=== PATIENT | female | born 1930 | race Caucasian/White ===

== ENCOUNTER → 2016-04-14 | Outpatient (REF) | payer MEDICARE ==
[~2016-04-14] MED LIST: AMLO10TA2 PO; BENA40TA2 PO; BIOT5000 PO; CALCIUM W/ VIT D PO; CITA40TA4 PO; DOCU10CA PO; ENTO3CAP5 PO; LIPI80TA PO; LOTR10CA2 PO; MELA1CAP2 PO; METF-414 PO; MIRT30TA3 PO; MOME50SP; MOTR200T44 PO; MULT1TAB9 PO; OMEP40CA2 PO; OXYB5TAB PO; PANT40TA2 PO; PERC5TAB6 PO; VITA20008 PO; VITATAB73 PO; ZOFR4TAB3 PO; [UNRECOGNIZED DRUG - OTHER] PR
== END ==
LOC: M LAB REF 10:57
PROVIDERS: ATTEND Physician Assistant Medical
DX: R19.7 Diarrhea, unspecified (principal)

== ENCOUNTER → 2016-05-27 | Outpatient (REF) | payer MEDICARE ==
[2016-05-27 15:59] LABS: MEAN CORPUSCULAR HEMOGLOBIN 26.4 pg (27.0-33.0); MEAN CORPUSCULAR HGB CONC 31.4 g/dl (32.0-36.5); MEAN CORPUSCULAR VOLUME 84.1 fl (80.0-96.0); RED CELL DISTRIBUTION WIDTH 14.8 % (11.5-14.5); WHITE BLOOD COUNT 7.9 K/mm3 (4.0-10.0)
[2016-05-27 16:16] LABS: ALBUMIN 3.4 GM/DL (3.2-5.2); ALBUMIN/GLOBULIN RATIO 1.17 (1.00-1.93); BILIRUBIN,TOTAL 0.5 MG/DL (0.2-1.0); CALCIUM LEVEL 8.4 MG/DL (8.8-10.2); CREATININE FOR GFR 1.11 MG/DL (0.55-1.02); FOLATE 20.8 NG/ML; GLOMERULAR FILTRATION RATE 49.9 (>32); POTASSIUM SERUM 4.7 MEQ/L (3.5-5.1); TOTAL PROTEIN 6.3 GM/DL (6.4-8.2)
== END ==
LOC: M SFHCPLAZ 11:40
PROVIDERS: ATTEND Internal Medicine
DX: R53.82 Chronic fatigue, unspecified (principal); E11.9 Type 2 diabetes mellitus without complications; E78.00 Pure hypercholesterolemia, unspecified

== ENCOUNTER → 2016-12-06 | Outpatient (REF) | payer MEDICARE ==
[~2016-12-06] MED LIST changes: -BENA40TA2 PO; +BENA40TA7 PO; +PERC5TAB12 PO; -PERC5TAB6 PO
[2016-12-06 21:44] LABS: ALBUMIN 3.4 GM/DL (3.2-5.2); ALBUMIN/GLOBULIN RATIO 1.13 (1.00-1.93); BILIRUBIN,TOTAL 0.5 MG/DL (0.2-1.0); CALCIUM LEVEL 7.8 MG/DL (8.8-10.2); CREATININE FOR GFR 1.1 MG/DL (0.55-1.02); GLOMERULAR FILTRATION RATE 50.3 (>32); MAGNESIUM LEVEL 1.5 MG/DL (1.8-2.4); POTASSIUM SERUM 4.5 MEQ/L (3.5-5.1); TOTAL PROTEIN 6.4 GM/DL (6.4-8.2)
== END ==
LOC: M SFHCADAM 12:56
PROVIDERS: ATTEND Internal Medicine
DX: E78.00 Pure hypercholesterolemia, unspecified (principal); E11.9 Type 2 diabetes mellitus without complications; N18.3 Chronic kidney disease, stage 3 (moderate)

== ENCOUNTER → 2017-06-01 | Outpatient (REF) | payer MEDICARE ==
[2017-06-01 19:45] LABS: HEMATOCRIT 39.4 % (36.0-47.0); HEMOGLOBIN 11.9 g/dl (12.0-16.0); MEAN CORPUSCULAR HGB CONC 30.2 g/dl (32.0-36.5); MEAN CORPUSCULAR VOLUME 82.8 fl (80.0-96.0); PLATELET COUNT, AUTOMATED 272 10^3/uL (150-450); RED BLOOD COUNT 4.76 10^6/uL (4.00-5.40); RED CELL DISTRIBUTION WIDTH 17.1 % (11.5-14.5); WHITE BLOOD COUNT 6.6 10^3/uL (4.0-10.0)
[2017-06-01 20:03] LABS: ESTIMATED AVERAGE GLUCOSE 163 MG/DL (60-110); HEMOGLOBIN A1c 7.3 %
[2017-06-01 20:08] LABS: VITAMIN B12 LEVEL 484 PG/ML
[2017-06-01 20:09] LABS: ALBUMIN 3.4 GM/DL (3.2-5.2); ALKALINE PHOSPHATASE 142 U/L (45-117); ALT/SGPT 27 U/L (12-78); ANION GAP 8 MEQ/L (8-16); AST/SGOT 23 U/L (7-37); BILIRUBIN,TOTAL 0.5 MG/DL (0.2-1.0); BLOOD UREA NITROGEN 11 MG/DL (7-18); CALCIUM LEVEL 8.4 MG/DL (8.8-10.2); CARBON DIOXIDE LEVEL 27 MEQ/L (21-32); CHLORIDE LEVEL 109 MEQ/L (98-107); CHOLESTEROL LEVEL 156 MG/DL (<200); CHOLESTEROL RISK RATIO 4.457 (<5); CREATININE FOR GFR 0.94 MG/DL (0.55-1.30); FOLATE > 24.0 NG/ML; GLOMERULAR FILTRATION RATE > 60.0 (>32); GLUCOSE, FASTING 123 MG/DL (70-100); HDL CHOLESTEROL 35 MG/DL (>40); LDL CHOLESTEROL 61.4 MG/DL (<100); NON-HDL-C 121 MG/DL; POTASSIUM SERUM 4.3 MEQ/L (3.5-5.1); SODIUM LEVEL 144 MEQ/L (136-145); TOTAL PROTEIN 6.5 GM/DL (6.4-8.2); TRIGLYCERIDES LEVEL 298 MG/DL (<150)
== END ==
LOC: M SFHCPLAZ 11:53
DX: R53.82 Chronic fatigue, unspecified (principal); E11.9 Type 2 diabetes mellitus without complications; E78.00 Pure hypercholesterolemia, unspecified
CPT/HCPCS: 82746

== ENCOUNTER → 2017-10-10 | Outpatient (CLI) | payer MEDICARE | LOC: M RAD 13:37 | DX: N64.4 Mastodynia (principal) | CPT/HCPCS: 77065 ==

== ENCOUNTER → 2017-12-02 | Outpatient (REF) | payer MEDICARE ==
[2017-12-02 16:10] LABS: ALBUMIN 3.3 GM/DL (3.2-5.2); ALBUMIN/GLOBULIN RATIO 0.94 (1.00-1.93); ALKALINE PHOSPHATASE 134 U/L (45-117); ALT/SGPT 29 U/L (12-78); ANION GAP 7 MEQ/L (8-16); AST/SGOT 28 U/L (7-37); BILIRUBIN,TOTAL 0.5 MG/DL (0.2-1.0); BLOOD UREA NITROGEN 11 MG/DL (7-18); CALCIUM LEVEL 8.6 MG/DL (8.8-10.2); CARBON DIOXIDE LEVEL 29 MEQ/L (21-32); CHLORIDE LEVEL 108 MEQ/L (98-107); CHOLESTEROL LEVEL 157 MG/DL (<200); CHOLESTEROL RISK RATIO 4.025 (<5); CREATININE FOR GFR 1.14 MG/DL (0.55-1.30); GLOMERULAR FILTRATION RATE 48.1 (>32); GLUCOSE, FASTING 115 MG/DL (70-100); HDL CHOLESTEROL 39 MG/DL (>40); LDL CHOLESTEROL 75 MG/DL (<100); MAGNESIUM LEVEL 1.5 MG/DL (1.8-2.4); NON-HDL-C 118 MG/DL; POTASSIUM SERUM 4.4 MEQ/L (3.5-5.1); SODIUM LEVEL 144 MEQ/L (136-145); TOTAL PROTEIN 6.8 GM/DL (6.4-8.2); TRIGLYCERIDES LEVEL 217 MG/DL (<150)
[2017-12-02 16:13] LABS: ESTIMATED AVERAGE GLUCOSE 163 MG/DL (60-110); HEMOGLOBIN A1c 7.3 %
== END ==
LOC: M SFHCADAM 11:26
DX: E11.9 Type 2 diabetes mellitus without complications (principal); E78.00 Pure hypercholesterolemia, unspecified
CPT/HCPCS: 83735

== ENCOUNTER → 2017-12-05 | Outpatient (REF) | payer MEDICARE ==
[2017-12-05 20:02] LABS: CREATININE, URINE 70.1 MG/DL; MALB URINE SIEMENS 20.8 MG/L
[2017-12-05 20:11] LABS: MAU/CREAT RATIO 29.7 MCG/MG (0.0-30.0)
== END ==
LOC: M SFHCADAM 18:53
DX: E11.9 Type 2 diabetes mellitus without complications (principal)
CPT/HCPCS: 82043

== ENCOUNTER 2017-12-08 19:28 | Emergency (ER) | payer MEDICARE ==
[2017-12-08 20:16] LABS: BASO % 0.5 % (0.0-1.0); EOS # 0.1 10^3/uL (0.0-0.50); EOS % 1.6 % (0.0-3.0); HEMATOCRIT 38.8 % (36.0-47.0); IMMATURE GRANULOCYTE % 0.6 % (0-3.0); LYMPH # 1.7 10^3/uL (1.5-4.5); LYMPH % 21.8 % (24.0-44.0); MEAN CORPUSCULAR HEMOGLOBIN 25.6 pg (27.0-33.0); MEAN CORPUSCULAR HGB CONC 30.9 g/dl (32.0-36.5); MEAN CORPUSCULAR VOLUME 82.7 fl (80.0-96.0); MONO # 0.8 10^3/uL (0.0-0.8); MONO % 9.4 % (0.0-5.0); NEUTROPHILS # 5.3 10^3/uL (1.8-7.7); NEUTROPHILS % 66.1 % (36.0-66.0); PLATELET COUNT, AUTOMATED 251 10^3/uL (150-450); RED BLOOD COUNT 4.69 10^6/uL (4.00-5.40); RED CELL DISTRIBUTION WIDTH 16.3 % (11.5-14.5)
[2017-12-08 20:29] LABS: INR 1.07
[2017-12-08 20:30] LABS: PARTIAL THROMBOPLASTIN TIME 32.7 SECONDS (25.4-37.6)
[2017-12-08 21:12] LABS: ALBUMIN 3.3 GM/DL (3.2-5.2); ALBUMIN/GLOBULIN RATIO 0.94 (1.00-1.93); ALKALINE PHOSPHATASE 121 U/L (45-117); ALT/SGPT 27 U/L (12-78); ANION GAP 10 MEQ/L (8-16); AST/SGOT 28 U/L (7-37); BILIRUBIN,DIRECT 0.1 MG/DL (0.0-0.2); BILIRUBIN,TOTAL 0.4 MG/DL (0.2-1.0); BLOOD UREA NITROGEN 10 MG/DL (7-18); C REACTIVE PROTEIN QUANTITATIV < 0.30 MG/DL (0.00-0.30); CALCIUM LEVEL 8.6 MG/DL (8.8-10.2); CARBON DIOXIDE LEVEL 21 MEQ/L (21-32); CHLORIDE LEVEL 109 MEQ/L (98-107); CK-MB VALUE MASS < 1.0 NG/ML (<3.6); CPK CREATINE PHOSPHOKINASE 35 U/L (26-192); CREATININE FOR GFR 1.13 MG/DL (0.55-1.30); ERYTHROCYTE SEDIMENTATION RATE 23 mm/hr (0-42); GLOMERULAR FILTRATION RATE 48.6 (>32); GLUCOSE, FASTING 128 MG/DL (70-100); MB/CK RELATIVE INDEX 2.86 (< OR =4); NT-PRO BNP 187 PG/ML (<450); SODIUM LEVEL 140 MEQ/L (136-145); THYROID STIMULATING HORMONE 0.865 uIU/ML (0.358-3.740); TOTAL PROTEIN 6.8 GM/DL (6.4-8.2); TROPONIN I < 0.02 NG/ML (< 0.10)
[2017-12-08] MEDS ORDERED: ISOVUE-370 76% 100ML VIAL (Q9967) As Ordered (22:29)
[2017-12-08] MEDS: NS 500 ML IV (22:30)
== END 2017-12-09 00:10 | disposition home or self-care (01) ==
LOC: M ED 12-09 00:10
DX: R07.89 Other chest pain (principal); I12.9 Hypertensive chronic kidney disease with stage 1 through stage 4 chronic kidney disease, or unspecified chronic kidney disease; E11.9 Type 2 diabetes mellitus without complications; N18.3 Chronic kidney disease, stage 3 (moderate); I25.10 Atherosclerotic heart disease of native coronary artery without angina pectoris; E78.5 Hyperlipidemia, unspecified; F41.9 Anxiety disorder, unspecified; F33.9 Major depressive disorder, recurrent, unspecified; G47.33 Obstructive sleep apnea (adult) (pediatric); Z88.0 Allergy status to penicillin; Z88.2 Allergy status to sulfonamides; Z87.891 Personal history of nicotine dependence
CPT/HCPCS: Q9967

== ENCOUNTER → 2017-12-28 | Outpatient (REF) | payer MEDICARE | LOC: M LAB REF 10:14 | DX: N39.0 Urinary tract infection, site not specified (principal) | CPT/HCPCS: 87186 ==

== ENCOUNTER → 2018-06-05 | Outpatient (REF) | payer MEDICARE ==
[~2018-06-05] MED LIST changes: -AMLO10TA2 PO; +AMLO10TA5 PO; +ASPI1TAB PO; -PANT40TA2 PO; +PANT40TA3 PO; +ZOFR4TAB14 PO; -ZOFR4TAB3 PO
[2018-06-05 19:56] LABS: HEMATOCRIT 40.8 % (36.0-47.0); HEMOGLOBIN 11.9 g/dl (12.0-15.5); MEAN CORPUSCULAR HEMOGLOBIN 24.8 pg (27.0-33.0); MEAN CORPUSCULAR HGB CONC 29.2 g/dl (32.0-36.5); MEAN CORPUSCULAR VOLUME 85.2 fl (80.0-96.0); PLATELET COUNT, AUTOMATED 288 10^3/uL (150-450); RED BLOOD COUNT 4.79 10^6/uL (4.00-5.40); WHITE BLOOD COUNT 7.1 10^3/uL (4.0-10.0)
[2018-06-05 20:05] LABS: ALBUMIN 3.3 GM/DL (3.2-5.2); BILIRUBIN,TOTAL 0.4 MG/DL (0.2-1.0); CALCIUM LEVEL 8.3 MG/DL (8.8-10.2); CHOLESTEROL RISK RATIO 4.562 (<5); CREATININE FOR GFR 1.07 MG/DL (0.55-1.30); GLOMERULAR FILTRATION RATE 51.8 (>32); MAGNESIUM LEVEL 1.7 MG/DL (1.8-2.4); POTASSIUM SERUM 4.2 MEQ/L (3.5-5.1); TOTAL PROTEIN 6.4 GM/DL (6.4-8.2)
[2018-06-05 20:13] LABS: PTH INTACT 99.6 PG/ML (18.5-88.0)
[2018-06-05 20:53] LABS: HEMOGLOBIN A1c 7.5 %
== END ==
LOC: M SFHCADAM 11:50
PROVIDERS: ATTEND Internal Medicine
DX: R71.8 Other abnormality of red blood cells (principal); I12.9 Hypertensive chronic kidney disease with stage 1 through stage 4 chronic kidney disease, or unspecified chronic kidney disease; E11.9 Type 2 diabetes mellitus without complications; E78.00 Pure hypercholesterolemia, unspecified; N18.3 Chronic kidney disease, stage 3 (moderate)

== ENCOUNTER 2018-07-19 17:11 | Emergency (ER) | payer MEDICARE ==
[~2018-07-19] VITALS: Ht 162.6 cm; Wt 81.8 kg
[~2018-07-19 17:11] MED LIST changes: -ASPI1TAB PO; +ASPI81TA26 PO
[2018-07-19] MEDS ORDERED: MELA10CA PO (17:29)
[2018-07-19] MEDS ORDERED: ACET-683 PO (17:29)
[2018-07-19] MEDS ORDERED: LEXA1TAB2 PO (17:29)
[2018-07-19] MEDS ORDERED: OMEG12003 PO (17:29)
[2018-07-19] MEDS ORDERED: VASC1CAP2 PO (17:29)
[2018-07-19 17:54] LABS: BASO % 0.6 % (0.0-1.0); EOS # 0.2 10^3/uL (0.0-0.50); EOS % 3.2 % (0.0-3.0); HEMATOCRIT 35.4 % (36.0-47.0); HEMOGLOBIN 10.8 g/dl (12.0-15.5); LYMPH # 1.6 10^3/uL (1.5-4.5); LYMPH % 22.6 % (24.0-44.0); MEAN CORPUSCULAR HEMOGLOBIN 25.5 pg (27.0-33.0); MEAN CORPUSCULAR HGB CONC 30.5 g/dl (32.0-36.5); MEAN CORPUSCULAR VOLUME 83.7 fl (80.0-96.0); MONO # 0.6 10^3/uL (0.0-0.8); MONO % 8.9 % (0.0-5.0); NEUTROPHILS # 4.5 10^3/uL (1.8-7.7); NEUTROPHILS % 64.3 % (36.0-66.0); PLATELET COUNT, AUTOMATED 292 10^3/uL (150-450); RED BLOOD COUNT 4.23 10^6/uL (4.00-5.40)
[2018-07-19 18:10] LABS: INR 1.13; PROTHROMBIN TIME 14.7 SECONDS (12.1-14.4)
[2018-07-19 18:11] LABS: PARTIAL THROMBOPLASTIN TIME 33.3 SECONDS (25.4-37.6)
--- NOTE | 2018-07-19 18:12 | REP ---
HISTORY: Chest pain. COMPARISON: Multiple, the latest 12/08/2017, a portable exam. There is cardiomegaly. There is a diffuse increase in the interstitial markings consistent with fibrotic changes, status quo. No acute patchy parenchymal opacities or pleural effusions have developed. The pleural angles are sharp. There is no change in the osseous structures. IMPRESSION: Chronic fibrotic changes and cardiomegaly as described above. Correlate clinically to rule out the possibility of acute disease superimposed on chronic change. Electronically Signed by Jake Suresh DO 07/20/2018 01:22 P
[2018-07-19 18:23] LABS: ALBUMIN 3.4 GM/DL (3.2-5.2); ALT/SGPT 21 U/L (12-78); BILIRUBIN,DIRECT 0.1 MG/DL (0.0-0.2); BILIRUBIN,TOTAL 0.4 MG/DL (0.2-1.0); BLOOD UREA NITROGEN 14 MG/DL (7-18); CALCIUM LEVEL 8.1 MG/DL (8.8-10.2); CARBON DIOXIDE LEVEL 23 MEQ/L (21-32); CHLORIDE LEVEL 112 MEQ/L (98-107); CK-MB VALUE MASS < 1.0 NG/ML (<3.6); CPK CREATINE PHOSPHOKINASE 37 U/L (26-192); FREE T4 1.12 NG/DL (0.76-1.46); GLOMERULAR FILTRATION RATE 45.3 (>32); GLUCOSE, FASTING 97 MG/DL (70-100); LIPASE 93 U/L (73-393); POTASSIUM SERUM 4.5 MEQ/L (3.5-5.1); SODIUM LEVEL 142 MEQ/L (136-145); THYROID STIMULATING HORMONE 0.746 uIU/ML (0.358-3.740); TOTAL PROTEIN 6.1 GM/DL (6.4-8.2); TROPONIN I < 0.02 NG/ML (< 0.10)
[2018-07-19] MEDS ORDERED: ISOVUE-370 76% 100ML VIAL (Q9967) As Ordered ONE (18:54)
--- NOTE | 2018-07-19 20:39 | ECGEPIP ---
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
--- NOTE | 2018-07-19 21:10 | REPVR ---
EXAM: CT Angiography Chest With Contrast EXAM DATE/TIME: 07/19/2018 7:59 PM CLINICAL HISTORY: 87 years old, female; Chest pain; Type not specified TECHNIQUE: Imaging protocol: Axial computed tomographic angiography images of the chest with intravenous contrast using CT angiography protocol. Coronal and sagittal reformatted images were created and reviewed. 3D rendering: MIP and 3D reconstructed images were created and reviewed. Radiation optimization: All CT scans at this facility use at least one of these dose optimization techniques: automated exposure control; mA and/or kV adjustment per patient size (includes targeted exams where dose is matched to clinical indication); or iterative reconstruction. Contrast material: ISOVUE 370; Contrast volume: 75 ml; Contrast route: IV; COMPARISON: CT ANGIO CHEST 12/08/2017 10:43 PM FINDINGS: Pulmonary arteries: There is opacification of the pulmonary arteries with no evidence of pulmonary embolus. Aorta: The aorta appears normal in size. There is calcification along the margin of the aorta consistent with atherosclerotic change. Thyroid: There is a 2 CM nodule in right lobe of the thyroid and unchanged. Lungs: There is hazy and patchy interstitial density throughout all aspects of the lungs and this is very extensive and progressive since the previous exam. Considerations include chronic interstitial lung disease which would include sarcoidosis, histiocytosis, collagen vascular disease, idiopathic pulmonary fibrosis. Some of this is present on the examination of November 2017 but there has been progression. Superimposed acute interstitial lung disease possible. It is noted that there are enlarged hilar lymph nodes especially on the right and this can be seen with sarcoidosis. Pleural space: There is no evidence of pneumothorax. There is no evidence of pleural effusion. Heart: There is moderate cardiomegaly. Stomach and bowel: There is a large hiatal hernia no after the stomach above the diaphragm. Bones/joints: Unremarkable. No acute fracture. Soft tissues: Unremarkable. IMPRESSION: 1. No evidence of pulmonary embolus. 2. Large areas of hazy patchy interstitial density throughout all the lung and progression since November 2017. This could represent progressive chronic interstitial lung disease as discussed above. There has been some increase in size of the enlarged hilar lymph nodes on the right which can be seen with sarcoidosis. Interstitial infection not absolutely excluded. Electronically signed by: Moris Faulkner On 07/19/2018 21:09:41 PM
[2018-07-19 21:55] LABS: CK-MB VALUE MASS < 1.0 NG/ML (<3.6); CPK CREATINE PHOSPHOKINASE 41 U/L (26-192); MB/CK RELATIVE INDEX 2.44 (< OR =4); TROPONIN I < 0.02 NG/ML (< 0.10)
[2018-07-19 22:20] VITALS: O2SAT 87
[2018-07-19 23:32] VITALS: BP 149/72
--- NOTE | 2018-07-21 06:58 | ECGEPIP ---
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
== END 2018-07-19 23:39 | disposition home or self-care (01) ==
LOC: M ED 17:11 → EDBD 17:11 → M ED 23:39
DX: I48.91 Unspecified atrial fibrillation (principal); J84.10 Pulmonary fibrosis, unspecified; E11.9 Type 2 diabetes mellitus without complications; I10 Essential (primary) hypertension; E78.5 Hyperlipidemia, unspecified; Z88.0 Allergy status to penicillin; Z88.1 Allergy status to other antibiotic agents; Z88.2 Allergy status to sulfonamides; E73.9 Lactose intolerance, unspecified; Z79.899 Other long term (current) drug therapy; Z79.84 Long term (current) use of oral hypoglycemic drugs; Z79.82 Long term (current) use of aspirin
CPT/HCPCS: 36415; 71046; 71275; 80048; 80076; 82550; 82553; 83690; 84439; 84443; 84484; 85025; 85610; 85730; 93005; 93041; 94760; 99285; Q9967

== ENCOUNTER → 2018-08-23 | Outpatient (REF) | payer MEDICARE ==
[~2018-08-23] MED LIST changes: +ACET-683 PO; +LEXA1TAB2 PO; +MELA10CA PO; +OMEG12003 PO; +VASC1CAP2 PO
== END ==
LOC: M LAB REF 17:04
PROVIDERS: ATTEND Nurse Practitioner Family
DX: R91.8 Other nonspecific abnormal finding of lung field (principal)

== ENCOUNTER → 2018-12-12 | Outpatient (REF) | payer MEDICARE ==
[~2018-12-12] MED LIST changes: -OXYB5TAB PO; +OXYB5TAB2 PO
[2018-12-12 19:53] LABS: ALBUMIN 3.5 GM/DL (3.2-5.2); BILIRUBIN,TOTAL 0.5 MG/DL (0.2-1.0); CALCIUM LEVEL 8.5 MG/DL (8.8-10.2); CHOLESTEROL RISK RATIO 4.485 (<5); CREATININE FOR GFR 1.24 MG/DL (0.55-1.30); GLOMERULAR FILTRATION RATE 43.6 (>32); MAGNESIUM LEVEL 1.6 MG/DL (1.8-2.4); PTH INTACT 120.8 PG/ML (18.5-88.0); THYROID STIMULATING HORMONE 2.24 uIU/ML (0.358-3.740); TOTAL PROTEIN 6.4 GM/DL (6.4-8.2)
== END ==
LOC: M SFHCADAM 12:53
PROVIDERS: ATTEND Internal Medicine
DX: I12.9 Hypertensive chronic kidney disease with stage 1 through stage 4 chronic kidney disease, or unspecified chronic kidney disease (principal); E11.9 Type 2 diabetes mellitus without complications; E78.00 Pure hypercholesterolemia, unspecified; N18.3 Chronic kidney disease, stage 3 (moderate); F34.1 Dysthymic disorder

== ENCOUNTER 2020-07-02 16:58 | Emergency (ER) | payer MEDICARE ==
[~2020-07-02] VITALS: Ht 162.6 cm; Wt 76.8 kg
[~2020-07-02 16:58] MED LIST changes: -CEFD300C PO; -DOXY-342 PO; -ELIQ5TAB PO; -METO25TA4 PO
[2020-07-02] MEDS ORDERED: ELIQ5TAB PO (17:31)
[2020-07-02] MEDS ORDERED: METOPROLOL TART 25 MG TABLET PO ONE (18:25)
[2020-07-02 18:36] VITALS: BP 120/83
[2020-07-02 18:49] LABS: NT-PRO BNP 5787 PG/ML (<450)
[2020-07-02] MEDS ORDERED: POTASSIUM CHLORIDE 10 MEQ SR TABLET PO ONE (19:15)
[2020-07-02 19:21] LABS: CK-MB VALUE MASS < 1.0 NG/ML (<3.6); CPK CREATINE PHOSPHOKINASE 29 U/L (26-192); MB/CK RELATIVE INDEX 3.45 (< OR =4); TROPONIN I < 0.02 NG/ML (< 0.10)
[2020-07-02 19:26] LABS: RSV AMPLIFICATION NEGATIVE (NEGATIVE)
[2020-07-02] MEDS ORDERED: cefTRIAXone SOD 1 GM in D5W MINI-BAG PLUS 50 ML IV ONE (20:25)
[2020-07-02] MEDS ORDERED: METO25TA4 PO (20:27)
[2020-07-02] MEDS ORDERED: CEFD300C PO (20:28)
[2020-07-02] MEDS ORDERED: DOXY-342 PO (20:28)
[2020-07-02 20:40] VITALS: O2SAT 96
[2020-07-02 22:00] VITALS: BP 127/74
--- NOTE | 2020-07-03 13:01 | ECGEPIP ---
[facility] - ED Test Date: 2020-07-02 Pat Name: TOSHA SCOTT Department: Room: - Gender: Female Manager Forensic: MARIA L : 1930 Requested By: Danna Montemayor Order Number: [id number] Reading MD: Danna Montemayor Measurements Intervals [place] Rate: 125 P: RI: QRS: 29 QRSD: 82 T: 145 QT: 326 QTc: 470 Interpretive Statements Atrial flutter with variable AV block Nonspecific ST and T wave abnormality Electronically Signed on 07-03-2020 13:01:22 EDT by Danna Montemayor
== END 2020-07-02 22:01 | disposition home or self-care (01) ==
LOC: M ED 16:58
DX: I48.91 Unspecified atrial fibrillation (principal); J18.9 Pneumonia, unspecified organism; E87.6 Hypokalemia; I48.92 Unspecified atrial flutter; I44.30 Unspecified atrioventricular block; R06.02 Shortness of breath; I25.10 Atherosclerotic heart disease of native coronary artery without angina pectoris; E11.9 Type 2 diabetes mellitus without complications; I10 Essential (primary) hypertension; E78.5 Hyperlipidemia, unspecified; K21.9 Gastro-esophageal reflux disease without esophagitis; N18.9 Chronic kidney disease, unspecified; E73.9 Lactose intolerance, unspecified; G47.33 Obstructive sleep apnea (adult) (pediatric); I35.0 Nonrheumatic aortic (valve) stenosis; Z87.891 Personal history of nicotine dependence; Z79.82 Long term (current) use of aspirin; Z79.84 Long term (current) use of oral hypoglycemic drugs; Z79.899 Other long term (current) drug therapy; Z88.0 Allergy status to penicillin; Z88.2 Allergy status to sulfonamides
CPT/HCPCS: 36415; 71046; 80053; 82550; 82553; 82728; 83036; 83540; 83880; 84443; 84484; 85025; 87631; 93005; 93041; 94760; 96365; 99285; G0463; J0696

== ENCOUNTER → 2020-07-02 | Outpatient (REF) | payer MEDICARE ==
[~2020-07-02] MED LIST changes: -AMLO10TA5 PO; +AMLO1TAB25 PO; +BENA40TA5 PO; -BENA40TA7 PO; +CEFD300C PO; +DOXY-342 PO; +ELIQ5TAB PO; +METO25TA4 PO; -OMEP40CA2 PO; +OMEP40CA97 PO; +OXYB-54 PO; -OXYB5TAB2 PO; +PANT40TA29 PO; -PANT40TA3 PO
[2020-07-02 17:44] LABS: BASO # 0.1 10^3/uL (0.0-0.2); BASO % 0.5 % (0.0-1.0); EOS # 0.2 10^3/uL (0.0-0.5); EOS % 1.7 % (0.0-3.0); HEMATOCRIT 29.7 % (36.0-47.0); HEMOGLOBIN 8.9 g/dl (12.0-15.5); LYMPH # 1.3 10^3/uL (1.5-5.0); LYMPH % 13.4 % (24.0-44.0); MEAN CORPUSCULAR HEMOGLOBIN 23.6 pg (27.0-33.0); MEAN CORPUSCULAR VOLUME 78.8 fl (80.0-96.0); MONO # 0.7 10^3/uL (0.0-0.8); MONO % 7.7 % (2.0-8.0); NEUTROPHILS # 7.3 10^3/uL (1.5-8.5); NEUTROPHILS % 75.9 % (36.0-66.0); PLATELET COUNT, AUTOMATED 318 10^3/uL (150-450); RED BLOOD COUNT 3.77 10^6/uL (4.00-5.40); WHITE BLOOD COUNT 9.6 10^3/uL (4.0-10.0)
[2020-07-02 18:15] LABS: BILIRUBIN,TOTAL 0.9 MG/DL (0.2-1.0); CALCIUM LEVEL 8.4 MG/DL (8.8-10.2); CREATININE FOR GFR 1.03 MG/DL (0.55-1.30); GLOMERULAR FILTRATION RATE 53.8 (>32); POTASSIUM SERUM 3.2 MEQ/L (3.5-5.1); THYROID STIMULATING HORMONE 0.732 uIU/ML (0.358-3.740); TOTAL PROTEIN 5.9 GM/DL (6.4-8.2)
== END ==
LOC: M SFHCPLAZ 15:51
PROVIDERS: ATTEND Physician Assistant
DX: R06.02 Shortness of breath (principal); R53.83 Other fatigue; R05 Cough; E11.9 Type 2 diabetes mellitus without complications

== ENCOUNTER → 2020-07-02 | Outpatient (CLI) | payer MEDICARE ==
--- NOTE | 2020-07-02 16:08 | REPPI ---
INDICATION: SOB, COUGH. COMPARISON: Multiple the latest 07/19/2018 TECHNIQUE: PA and lateral views FINDINGS: The superior mediastinal structures are midline. The cardiac silhouette is enlarged. There is a new patchy opacity in the left lower lobe with minimal left CP angle blunting. The right lung is unchanged. There is no change in the osseous structures. IMPRESSION: 1. Left lower lobe pneumonia. 2. Cardiomegaly <Electronically signed by Jake Suresh > 07/02/20 [id number]
== END ==
LOC: M PLAIMG 15:51
PROVIDERS: ATTEND Physician Assistant
DX: J18.0 Bronchopneumonia, unspecified organism (principal); I51.7 Cardiomegaly; R06.02 Shortness of breath; R05 Cough

== ENCOUNTER → 2020-07-31 | Outpatient (REF) | payer MEDICARE ==
[~2020-07-31] MED LIST changes: +CEFD300C PO; +CENT1TAB9 PO; +DOXY-342 PO; +ELIQ5TAB PO; +FERR32TA PO; +METO1TAB7 PO; +METO25TA4 PO; +REME45TA2 PO
[2020-07-31 13:33] LABS: BASO % 0.6 % (0.0-1.0); EOS # 0.1 10^3/uL (0.0-0.5); EOS % 1.7 % (0.0-3.0); HEMATOCRIT 30.4 % (36.0-47.0); HEMOGLOBIN 8.2 g/dl (12.0-15.5); LYMPH # 1.4 10^3/uL (1.5-5.0); LYMPH % 19.8 % (24.0-44.0); MEAN CORPUSCULAR HEMOGLOBIN 21.2 pg (27.0-33.0); MEAN CORPUSCULAR VOLUME 78.6 fl (80.0-96.0); MONO # 0.7 10^3/uL (0.0-0.8); MONO % 9.2 % (2.0-8.0); NEUTROPHILS # 4.9 10^3/uL (1.5-8.5); NEUTROPHILS % 67.7 % (36.0-66.0); PLATELET COUNT, AUTOMATED 311 10^3/uL (150-450); RED BLOOD COUNT 3.87 10^6/uL (4.00-5.40); WHITE BLOOD COUNT 7.3 10^3/uL (4.0-10.0)
[2020-07-31 14:04] LABS: ALBUMIN 3.1 GM/DL (3.2-5.2); ALT/SGPT 15 U/L (12-78); BILIRUBIN,TOTAL 0.6 MG/DL (0.2-1.0); BLOOD UREA NITROGEN 16 MG/DL (7-18); CALCIUM LEVEL 8.6 MG/DL (8.8-10.2); CARBON DIOXIDE LEVEL 21 MEQ/L (21-32); CHLORIDE LEVEL 113 MEQ/L (98-107); CHOLESTEROL LEVEL 96 MG/DL (<200); CHOLESTEROL RISK RATIO 2.742 (<5); CREATININE FOR GFR 1.23 MG/DL (0.55-1.30); FOLATE > 24.0 NG/ML; GLOMERULAR FILTRATION RATE 43.9 (>32); GLUCOSE, FASTING 121 MG/DL (70-100); HDL CHOLESTEROL 35 MG/DL (>40); LDL CHOLESTEROL 41 MG/DL (<100); MAGNESIUM LEVEL 1.4 MG/DL (1.8-2.4); NON-HDL-C 61 MG/DL; POTASSIUM SERUM 3.9 MEQ/L (3.5-5.1); SODIUM LEVEL 143 MEQ/L (136-145); TOTAL PROTEIN 5.9 GM/DL (6.4-8.2); TRIGLYCERIDES LEVEL 102 MG/DL (<150); VITAMIN B12 LEVEL 481 PG/ML
== END ==
LOC: M PLALAB 12:58
PROVIDERS: ATTEND Internal Medicine
DX: D50.8 Other iron deficiency anemias (principal); E11.9 Type 2 diabetes mellitus without complications; F03.90 Unspecified dementia, unspecified severity, without behavioral disturbance, psychotic disturbance, mood disturbance, and anxiety

== ENCOUNTER → 2020-08-03 | Outpatient (REF) | payer MEDICARE ==
[2020-08-04 14:03] LABS: MALB URINE SIEMENS 51.1 MG/L; MAU/CREAT RATIO 20.6 MCG/MG (0.0-30.0)
== END ==
LOC: M LAB REF 12:36
PROVIDERS: ATTEND Internal Medicine
DX: E11.9 Type 2 diabetes mellitus without complications (principal)

== ENCOUNTER 2020-08-04 10:26 | Inpatient (IN) | payer MEDICARE ==
[~2020-08-04] VITALS: Ht 162.6 cm; Wt 76.9 kg
[~2020-08-04 10:26] MED LIST changes: -CENT1TAB9 PO; -FERR32TA PO; -METO1TAB7 PO; -REME45TA2 PO
[2020-08-04 11:42] LABS: BASO # 0.1 10^3/uL (0.0-0.2); BASO % 0.5 % (0.0-1.0); EOS # 0.1 10^3/uL (0.0-0.5); EOS % 0.6 % (0.0-3.0); HEMATOCRIT 32.4 % (36.0-47.0); HEMOGLOBIN 8.6 g/dl (12.0-15.5); LYMPH # 1.5 10^3/uL (1.5-5.0); LYMPH % 12.5 % (24.0-44.0); MEAN CORPUSCULAR HEMOGLOBIN 20.7 pg (27.0-33.0); MEAN CORPUSCULAR HGB CONC 26.5 g/dl (32.0-36.5); MEAN CORPUSCULAR VOLUME 78.1 fl (80.0-96.0); MONO # 0.9 10^3/uL (0.0-0.8); MONO % 7.7 % (2.0-8.0); NEUTROPHILS # 9.3 10^3/uL (1.5-8.5); NEUTROPHILS % 77.5 % (36.0-66.0); PLATELET COUNT, AUTOMATED 375 10^3/uL (150-450); RED BLOOD COUNT 4.15 10^6/uL (4.00-5.40)
--- NOTE | 2020-08-04 12:00 | REP ---
INDICATION: SOB. COMPARISON: Comparison chest x-ray July 19, 2018.. TECHNIQUE: Portable sitting AP chest radiograph. FINDINGS: Oxygen delivery tubing and EKG electrodes are seen. Cardiomegaly is observed. There is blunting of the pleural angles bilaterally, left greater than right consistent with bilateral effusions. Pulmonary vasculature is cephalized and somewhat congested. IMPRESSION: CHF pattern. <Electronically signed by Sahil Pearson > 08/04/20 [id number]
[2020-08-04 12:20] LABS: FERRITIN 13 NG/ML (8-252); IRON (FE) 229 UG/DL (50-170); PERCENT SATURATION 49.2 % (13.2-45.0); TOTAL IRON BINDING CAPACITY 465 UG/DL (250-450)
[2020-08-04 12:22] LABS: BLOOD UREA NITROGEN 20 MG/DL (7-18); CALCIUM LEVEL 8.6 MG/DL (8.8-10.2); CARBON DIOXIDE LEVEL 20 MEQ/L (21-32); CHLORIDE LEVEL 113 MEQ/L (98-107); CK-MB VALUE MASS < 1.0 NG/ML (<3.6); CPK CREATINE PHOSPHOKINASE 22 U/L (26-192); CREATININE FOR GFR 1.39 MG/DL (0.55-1.30); GLOMERULAR FILTRATION RATE 38.1 (>32); GLUCOSE, FASTING 127 MG/DL (70-100); MB/CK RELATIVE INDEX 4.55 (< OR =4); POTASSIUM SERUM 3.6 MEQ/L (3.5-5.1); SODIUM LEVEL 143 MEQ/L (136-145); TROPONIN I < 0.02 NG/ML (< 0.10)
[2020-08-04 12:44] LABS: RSV AMPLIFICATION NEGATIVE (NEGATIVE)
[2020-08-04 13:10] LABS: FOLATE > 24.0 NG/ML (>5.4); VITAMIN B12 LEVEL 437 PG/ML (247-911)
[2020-08-04 13:19] LABS: NT-PRO BNP 5911 PG/ML (<450)
[2020-08-04] MEDS ORDERED: ASPI81TA26 PO (13:35)
[2020-08-04] MEDS ORDERED: REME45TA2 PO (13:35)
[2020-08-04] MEDS ORDERED: CENT1TAB9 PO (13:35)
[2020-08-04] MEDS ORDERED: FERR32TA PO (13:35)
[2020-08-04] MEDS ORDERED: METO1TAB7 PO (13:35)
[2020-08-04] MEDS ORDERED: GLUCAGON INJ 1MG VIAL SC PRN (14:15)
[2020-08-04] MEDS ORDERED: GLUCOSE 4GM CHEW TABLET PO PRN (14:15)
[2020-08-04] MEDS ORDERED: ACETAMINOPHEN 500 MG TAB PO PRN (14:15)
[2020-08-04] MEDS ORDERED: MOM 30ML SUSPENSION UDC PO PRN (14:15)
[2020-08-04] MEDS ORDERED: DEXTROSE 50% 50 ML SYRINGE IV PRN (14:15)
[2020-08-04] MEDS ORDERED: ELIQ5TAB PO (14:33)
[2020-08-04] MEDS ORDERED: FUROSEMIDE 40MG/4ML VIAL (J1940) IV ONE (15:00)
[2020-08-04 15:22] VITALS: BP 130/62
[2020-08-04 15:46] VITALS: BP 130/59
--- NOTE | 2020-08-04 15:59 | HPEPDOC ---
[facility] Medical History & Physical Date of Admission August 04, 2020 Date of Service: August 04, 2020 Attending Physician: CHRISTIAN MARAVILLA MD History and Physical CHIEF COMPLAINT: Worsening dyspnea and decreasing exercise tolerance HISTORY OF PRESENT ILLNESS: Very pleasant 89 yo W who lives independently in her home with a daughter who lives close by, with a history of HTN, HLD, NIDDM2, CAD, history of angina, GERD, SILVIA, depression and anxiety who was brought in by her daughter for noted worsening dyspnea especially with exertion with declining exercise tolerance, with noted hypoxemia at her PCP appointment earlier. The daughter reports that her mother has been having a smoldering decline in exercise tolerance and ability to perform even ADLs at times over months especially since the beginning of 06/2020. She was recently in the ED and diagnosed with CAP and was given a course of antibiotics and PCP recently diagnosed her with SILVIA (had it for years and used to be on replacement therapy but had resolved and stopped PO iron) and was placed on three times weekly ferrous gluconate. She reported has also become increasingly more forgetful when at baseline was very sharp, did all her own accounting and computer work. The daughter expresses that at this time, her mother is not safe at home alone and we agreed to admit her for medical evaluation and safe discharge planning so the family can plan accordingly when there is a projected expected chronicity of her debility. In the ED, she was hypoxemic and placed on 2L NC and was saturating 92% when I saw her. She had no actual physical complaints on ROS and denied any recent fever, chills, chest pain, palpitations, paroxysmal nocturnal dyspnea, cough, dysuria, hematuria. She did report weakness, shortness of breath with even mi nimal exertion, decreasing exercise tolerance, poor appetite and some weight loss though she could not give details of degree of loss. She is fully vaccinated for covid-19. ED evaluation was notable for EKG that showed Afib without ST segment changes, troponin that was <0.02, proBNP that was elevated to 5911, CXR that showed diffuse vascular congestion c/f CHF, WBC 12, Hgb 8.6, platelets 375, Na 143, K 3.6, Cr 1.39, iron 229, ferritin 15, folate >24, B12 437, FOBT negative. She is now being admitted for symptomatic anemia and likely congestive heart failure. PAST MEDICAL HISTORY: HTN, HLD, NIDDM2, CAD, history of angina, GERD, SILVIA, depression and anxiety PAST SURGICAL HISTORY: Breast lumps removal Cholecystectomy Hysterectomy Bladder prolapse surgery SOCIAL HISTORY: Lives alone with family close by No smoking No alcohol No illicit drug use FAMILY HISTORY: Non contributory ALLERGIES: Please see below. REVIEW OF SYSTEMS: 10 point ROS was completed and was negative except as noted above in HPI HOME MEDICATIONS: Please see below. PHYSICAL EXAMINATION: VITAL SIGNS: please see below GENERAL APPEARANCE: Elderly, in NAD HEENT: NCAT, EOMI, MMM, anicteric CARDIOVASCULAR: Loud pansystolic murmur heard throughout the precordium, irregularly irregular LUNGS: bilateral posterior wet crackles, no wheezing, no rhonchi ABDOMEN: normoactive sounds, soft, NTND EXTREMITIES: WWP, no pitting edema, mild puffiness at the ankles, 2+ DP pulses NEUROLOGICAL: CN2-12 intact, AOx3, moving all extremities without any noted focal deficits PSYCHIATRIC: AOx3 LABORATORY DATA and IMAGING: as noted above. See below for details MICROBIOLOGY: Please see below. ASSESSMENT: 89 yo W with a history of HTN, HLD, NIDDM2, CAD, history of angina, GERD, SILVIA, depression and anxiety who was brought in by her daughter for noted worsening dyspnea especially with exertion with declining exercise tolerance who is now admitted for NIKI, symptomatic and workup of her MARTINEZ and functional decline. Plan: MARTINEZ: possibly multifactorial 2/2 anemia, possible CHF vs. critical valvulopathy given her very loud murmur -Plan as noted below for each of these problems -PT/OT Anemia: Known history of SILVIA recently placed on ferrous gluconate, now admitting for presumed symptomatic anemia -transfuse 1 unit and will also give it with lasix 40 IV once -FOBT was negative -iron is beginning to respond, ferritin is still very low -B12 and folate are wnl -continue ferrouse gluconate daily, with bowel regimen Likely CHF: no history of, but has a history of CAD and Afib and has a murmur -Elevated BNP with crackles on exam and CXR with cephalization -lasix 40 IV once with the 1u pRBCs -will dose more diuretics based on her response to the initial lasix 40 IV -hold home amlodipine and ACEi with soft BPs for hemodynamic freedom to diurese -TTE -continue her toprol -telemetry -am torn about fluid restriction, her PO appears poor, for now will let her drink to thirst and monitor strict I/Os -daily weights Chronic Afib: -continue home toprol -continue eliquis 5 BID -telemetry NIKI: I suspect it is congestive -monitor daily BMP -giving lasix 40 IV -UOP has reportedly been poor, will order renal US -UA with urine lytes -hold metformin, ACEi DM: -hold home metformin -SSI AC/HS -FSBG AC/HS -hypoglycemia protocol Depression: -continue mirtazapine and escitalopram GERD: -continue home omeprazole HLD: -continue home lipitor, reduce to 40mg from 80mg given recent weakness DVT ppx: on eliquis Vital Signs Vital Signs Date Time Temp Pulse Resp B/P (MAP) Pulse Ox O2 Delivery O2 Flow Rate FiO2 08/04/20 14:04 80 88 08/04/20 14:00 105/62 (76) 08/04/20 10:28 97.7 22 Room Air Laboratory Data Labs 24H Laboratory Tests 2 08/04/20 11:30: Immature Granulocyte % (Auto) 1.2, Neutrophils (%) (Auto) 77.5H, Lymphocytes (%) (Auto) 12.5L, Monocytes (%) (Auto) 7.7, Eosinophils (%) (Auto) 0.6, Basophils (%) (Auto) 0.5, Neutrophils # (Auto) 9.3H, Lymphocytes # (Auto) 1.5, Monocytes # (Auto) 0.9H, Eosinophils # (Auto) 0.1, Basophils # (Auto) 0.1, Nucleated Red Blood Cells % (auto) 0.7H, Anion Gap 10, Glomerular Filtration Rate 38.1, Calcium Level 8.6L, Iron Level 229H, Total Iron Binding Capacity 465H, Transferrin % Saturation 49.2H, Ferritin 13, Total Creatine Kinase 22L, Creatine Kinase MB < 1.0, Creatine Kinase MB Relative Index 4.55H, Troponin I < 0.02, YV-Vol-P-Type Natriuretic Peptide 5911H, Vitamin B12 Level 437, Folate > 24.0 08/04/20 11:34: Coronavirus (COVID-19)(PCR) NEGATIVE, Influenza Type A (RT-PCR) NEGATIVE, Influenza Type B (RT-PCR) NEGATIVE, Respiratory Syncytial Virus (PCR) NEGATIVE CBC/BMP Laboratory Tests 08/04/20 11:30 Home Medications Scheduled Amlodipine Besylate (Amlodipine Besylate) 10 Mg Tab, 10 MG PO DAILY going to discontinue Apixaban (Eliquis) 5 Mg Tablet, 5 MG PO BID Atorvastatin Calcium (Lipitor) 80 Mg Tab, 80 MG PO DAILY Benazepril HCl (Benazepril HCl) 40 Mg Tab, 40 MG PO DAILY Escitalopram Oxalate (Lexapro) 20 Mg Tablet, 20 MG PO DAILY Ferrous Gluconate (Ferrous Gluconate) 324 Mg Tablet, 324 MG PO 3XW MON, WED, FRI Icosapent Ethyl (Vascepa) 1 Gm Capsule, 2 CAP PO BID Melatonin (Melatonin) 10 Mg Capsule, 10 MG PO QPM for sleep Metformin HCl (Metformin ER Osmotic) 500 Mg Tab, 500 MG PO QHS AROUND MIDNIGHT Metoprolol Succinate (Metoprolol Succinate) 50 Mg Tab.er.24h, 50 MG PO DAILY Mirtazapine (Remeron) 45 Mg Tab.rapdis, 45 MG PO QHS Multivit-Min/Iron/Folic/Lutein (Centrum Silver Women Tablet) 1 Each Tablet, 1 EACH PO DAILY Omeprazole (Omeprazole) 40 Mg Cap, 40 MG PO BID Scheduled PRN Acetaminophen (Acetaminophen) 500 Mg Tablet, 1,000 MG PO Q6H PRN for PAIN OR FEVER Allergies Coded Allergies: Penicillins (Verified Allergy, Intermediate, RASH, 07/02/20) Sulfa (Sulfonamide Antibiotics) (Verified Allergy, Unknown, 07/19/18) lactose (Verified Adverse Reaction, Mild, diarrhea, 07/19/18) A-FIB/CHADSVASC A-FIB History Current/History of A-Fib/PAF?: Yes Current PO Anticoag Therapy: Yes Treatment Treatment ordered: Apixaban CHRISTIAN MARAVILLA MD August 04, 2020 15:59
[2020-08-04 16:20] VITALS: BP 139/88
[2020-08-04 17:00] VITALS: BP 139/75
[2020-08-04] MEDS ORDERED: SLF 3 ML SYR IV PRN (17:05)
[2020-08-04 18:38] VITALS: BP 148/74
[2020-08-04] MEDS: HumaLOG INSULIN (NovoLOG) PER UNIT SC SCH ×2 (18:53→20:13)
[2020-08-04] MEDS: APIXABAN 5 MG TAB (ELIQUIS) PO SCH (20:12)
[2020-08-04] MEDS: DOCUSATE SODIUM 100MG CAPSULE PO SCH (20:12)
[2020-08-04] MEDS: MIRTAZAPINE 15 MG TAB PO SCH (20:12)
--- NOTE | 2020-08-04 20:12 | ECGEPIP ---
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
[2020-08-04] MEDS: SLF 3 ML SYR IV SCH (20:13)
[2020-08-04] MEDS: OMEPRAZOLE 20 MG CAP PO SCH (20:13)
[2020-08-05 04:06] VITALS: BP 102/57
[2020-08-05] MEDS: SLF 3 ML SYR IV SCH ×3 (05:38→21:09)
[2020-08-05 05:51] LABS: HEMATOCRIT 29.9 % (36.0-47.0); HEMOGLOBIN 8.4 g/dl (12.0-15.5); MEAN CORPUSCULAR HEMOGLOBIN 21.6 pg (27.0-33.0); MEAN CORPUSCULAR HGB CONC 28.1 g/dl (32.0-36.5); MEAN CORPUSCULAR VOLUME 76.9 fl (80.0-96.0); PLATELET COUNT, AUTOMATED 278 10^3/uL (150-450); RED BLOOD COUNT 3.89 10^6/uL (4.00-5.40); WHITE BLOOD COUNT 6.5 10^3/uL (4.0-10.0)
[2020-08-05 06:24] LABS: CALCIUM LEVEL 8.4 MG/DL (8.8-10.2); CREATININE FOR GFR 1.48 MG/DL (0.55-1.30); GLOMERULAR FILTRATION RATE 35.4 (>32); MAGNESIUM LEVEL 1.5 MG/DL (1.8-2.4)
[2020-08-05] MEDS: HumaLOG INSULIN (NovoLOG) PER UNIT SC SCH ×4 (07:30→21:00)
[2020-08-05] MEDS: APIXABAN 5 MG TAB (ELIQUIS) PO SCH ×2 (07:49→21:08)
[2020-08-05] MEDS: ESCITALOPRAM OXALATE 10 MG TAB (LEXAPRO) PO SCH (07:50)
[2020-08-05] MEDS: MULTIVITAMINS/MINERALS THERAP 1 TAB PO SCH (07:50)
[2020-08-05] MEDS: DOCUSATE SODIUM 100MG CAPSULE PO SCH ×2 (07:50→21:08)
[2020-08-05] MEDS: ATORVASTATIN 20 MG TAB PO SCH (07:50)
[2020-08-05] MEDS: OMEPRAZOLE 20 MG CAP PO SCH ×2 (07:50→21:08)
[2020-08-05] MEDS: FERROUS GLUCONATE 324 MG TAB PO SCH (07:51)
[2020-08-05] MEDS: METOPROLOL SUCC (TopROL XL) 50MG **XL** TAB PO SCH (07:57)
[2020-08-05 08:00] VITALS: BP 112/74
[2020-08-05] MEDS ORDERED: ATORVASTATIN 20 MG TAB PO SCH (09:00)
[2020-08-05] MEDS ORDERED: MAG SULF 1GM/100ML (MAG RUN) 1 GM in IV 1 EA IV ONE (10:00)
[2020-08-05] MEDS: FUROSEMIDE 100MG/10ML VIAL (J1940) IV SCH ×2 (10:19→17:45)
[2020-08-05 11:17] LABS: BILIRUBIN, URINE MANUAL NEGATIVE (NEGATIVE); GLUCOSE, URINE (UA) MANUAL NEGATIVE (NEGATIVE); KETONE, URINE MANUAL NEGATIVE (NEGATIVE); UROBILINOGEN, URINE MANUAL NORMAL (NORMAL)
[2020-08-05 11:45] VITALS: BP 129/78
--- NOTE | 2020-08-05 13:03 | IPNPDOC ---
Text Note Date of Service The patient was seen on 08/05/20. NOTE SUBJECTIVE: -No acute complaints -Has had poor UOP, or poorly charted I/Os, will discuss with nursing, also UA still pending. PHYSICAL EXAMINATION: VITAL SIGNS: please see below GENERAL APPEARANCE: Elderly, in NAD HEENT: NCAT, EOMI, MMM, anicteric CARDIOVASCULAR: Loud pansystolic murmur heard throughout the precordium, irregularly irregular LUNGS: bilateral posterior wet crackles, no wheezing, no rhonchi ABDOMEN: normoactive sounds, soft, NTND EXTREMITIES: WWP, no pitting edema, mild puffiness at the ankles, 2+ DP pulses NEUROLOGICAL: CN2-12 intact, AOx3, moving all extremities without any noted focal deficits PSYCHIATRIC: AOx3 LABORATORY DATA: WBC 6.5 Hgb 8.4 Platelets 278 Na 145 K 4 Cr 1.48 mag 1.5 MICROBIOLOGY: Please see below. ASSESSMENT: 89 yo W with a history of HTN, HLD, NIDDM2, CAD, history of angina, GERD, SILVIA, depression and anxiety who was brought in by her daughter for noted worsening dyspnea especially with exertion with declining exercise tolerance who is now admitted for NIKI, symptomatic anemia and workup of her MARTINEZ and functional decline. Plan: MARTINEZ: possibly multifactorial 2/2 anemia, possible CHF vs. critical valvulopathy given her very loud murmur -Plan as noted below for each of these problems -PT/OT Anemia: Known history of SILVIA recently placed on ferrous gluconate, now admitting for presumed symptomatic anemia -transfused 1 unit but without desired effect in H/H, will check PM H/H -FOBT was negative -iron is beginning to respond, ferritin is still very low -B12 and folate are wnl -continue ferrous gluconate daily, with bowel regimen Likely CHF: no history of, but has a history of CAD and Afib and has a murmur -Elevated BNP with crackles on exam and CXR with cephalization -lasix 60 IV BID -Bird for strict I/Os, appears to be oliguric despite 40 IV lasix -holding home amlodipine and ACEi with soft BPs for hemodynamic freedom to diurese -f/u TTE -continue her toprol -telemetry -1.8L/24h fluid -goal net negative 2L -monitor strict I/Os -daily weights Chronic Afib: -continue home toprol -continue eliquis 5 BID -telemetry NIKI: I suspect it is congestive but also worried about obstructive pathology given the poor output -monitor daily BMP -giving lasix 60 IV BID -renal US -UA with urine lytes -hold metformin, ACEi DM: -hold home metformin -SSI AC/HS -FSBG AC/HS -hypoglycemia protocol Depression: -continue mirtazapine and escitalopram GERD: -continue home omeprazole HLD: -continue home lipitor, reduced to 40mg from 80mg given recent weakness DVT ppx: on eliquis VS,Fishbone, I+O VS, Fishbone, I+O Laboratory Tests 08/04/20 11:30 08/05/20 05:22 Vital Signs Date Time Temp Pulse Resp B/P (MAP) Pulse Ox O2 Delivery O2 Flow Rate FiO2 08/05/20 08:00 4.0 08/05/20 08:00 97.6 86 20 112/74 (87) 94 Nasal Cannula I&O- Last 24 Hours up to 6 AM 08/05/20 06:00 Intake Total 1200 ml Output Total 300 ml Balance 900 ml CHRISTIAN MARAVILLA MD August 05, 2020 09:22
[2020-08-05 14:00] VITALS: BP 104/66
[2020-08-05 14:13] LABS: HEMATOCRIT 34.1 % (36.0-47.0); HEMOGLOBIN 9.4 g/dl (12.0-15.5)
--- NOTE | 2020-08-05 16:36 | REP ---
INDICATION: NIKI with low UOP COMPARISON: 10/21/2009 TECHNIQUE: Real time currie scale ultrasound examination using curved array transducer. FINDINGS: The bilateral kidneys are normal in reniform shape with increased central sinus fat and cortical thinning consistent with chronic age-related renal disease. No hydronephrosis, nephrolithiasis, cystic or renal mass lesion noted bilaterally. Right kidney measures 10.1 x 4.2 x 4.3 cm. Left kidney measures 9.6 x 4.7 x 3.9 cm. Bird catheter in collapsed bladder. IMPRESSION: Findings consistent with chronic medical renal disease. No hydronephrosis. <Electronically signed by Emiliano Salas > 08/05/20 [id number]
[2020-08-05] MEDS: MIRTAZAPINE 15 MG TAB PO SCH (21:08)
[2020-08-05] MEDS: NYSTATIN 100,000 UNITS/GM TOPICAL PWD 15 GM TOP SCH (21:08)
[2020-08-05 22:00] VITALS: BP 106/52
[2020-08-06] MEDS: SLF 3 ML SYR IV SCH ×3 (05:04→21:43)
[2020-08-06 05:59] LABS: HEMATOCRIT 35.7 % (36.0-47.0); HEMOGLOBIN 9.9 g/dl (12.0-15.5); MEAN CORPUSCULAR HEMOGLOBIN 21.2 pg (27.0-33.0); MEAN CORPUSCULAR HGB CONC 27.7 g/dl (32.0-36.5); MEAN CORPUSCULAR VOLUME 76.3 fl (80.0-96.0); PLATELET COUNT, AUTOMATED 330 10^3/uL (150-450); RED BLOOD COUNT 4.68 10^6/uL (4.00-5.40); WHITE BLOOD COUNT 8.6 10^3/uL (4.0-10.0)
[2020-08-06 06:00] VITALS: BP 139/82
[2020-08-06 06:26] LABS: CALCIUM LEVEL 9.7 MG/DL (8.8-10.2); CREATININE FOR GFR 1.42 MG/DL (0.55-1.30); GLOMERULAR FILTRATION RATE 37.2 (>32); MAGNESIUM LEVEL 1.4 MG/DL (1.8-2.4)
[2020-08-06] MEDS: FUROSEMIDE 100MG/10ML VIAL (J1940) IV SCH ×2 (08:33→17:13)
[2020-08-06] MEDS: HumaLOG INSULIN (NovoLOG) PER UNIT SC SCH ×4 (08:33→20:49)
[2020-08-06 08:34] VITALS: BP 125/81
[2020-08-06] MEDS: OMEPRAZOLE 20 MG CAP PO SCH ×2 (08:34→21:42)
[2020-08-06] MEDS: METOPROLOL SUCC (TopROL XL) 50MG **XL** TAB PO SCH (08:34)
[2020-08-06] MEDS: ATORVASTATIN 20 MG TAB PO SCH (08:34)
[2020-08-06] MEDS: APIXABAN 5 MG TAB (ELIQUIS) PO SCH ×2 (08:34→21:42)
[2020-08-06] MEDS: ESCITALOPRAM OXALATE 10 MG TAB (LEXAPRO) PO SCH (08:34)
[2020-08-06] MEDS: MULTIVITAMINS/MINERALS THERAP 1 TAB PO SCH (08:34)
[2020-08-06] MEDS: DOCUSATE SODIUM 100MG CAPSULE PO SCH ×2 (08:34→21:42)
[2020-08-06] MEDS: FERROUS GLUCONATE 324 MG TAB PO SCH (08:34)
[2020-08-06] MEDS: NYSTATIN 100,000 UNITS/GM TOPICAL PWD 15 GM TOP SCH ×2 (08:35→21:41)
[2020-08-06] MEDS ORDERED: MAG SULF 1GM/100ML (MAG RUN) 1 GM in IV 1 EA IV ONE (10:00)
--- NOTE | 2020-08-06 12:20 | ECHO ---
DATE OF PROCEDURE: 08/05/2020 Age: 89 Gender: Female Height: 163 cm Weight: 77 kg REFERRING PHYSICIAN: Dr. Amira Chaudhari. INDICATION: Dyspnea, unspecified. MEASUREMENTS: 2D Measurements: Interventricular septum 1.30 cm Posterior wall 1.10 cm Left ventricle diastole 3.8 cm Left ventricle systole 2.1 cm Left atrium 3.9 cm Left atrium volume index 37 Aortic root 2.8 cm Aortic annulus 1.9 cm Inferior vena cava 2.4 Doppler Measurements: Aortic valve velocity 323 cm/s Peak aortic valve gradient 42 mmHg Mean aortic valve gradient 24 mmHg Aortic valve VTI 71.5 cm Mitral E velocity 159 cm/s Moderate tricuspid regurgitation Estimated right ventricle systolic pressure 53 mmHg Estimated right atrial pressure of 10 mmHg Mild pulmonic regurgitation MITRAL ANNULAR TISSUE DOPPLER E prime septal 4.5 cm/s, E prime lateral 7.8 cm/s DESCRIPTION: Rhythm appeared to be atrial fibrillation. Image quality was fair. This was a 2D, M-mode, color flow Doppler, and pulsed wave Doppler examination including mitral annular tissue Doppler. CONCLUSIONS: 1. Severe focal thickening and focal calcific deposits of a 3-cusp aortic valve with moderate reduction in aortic cusp mobility. Moderate aortic stenosis. No aortic regurgitation. 2. Mild focal hypertrophy of the basal anterior ventricular septum. Normal regional LV wall motion and wall thickening. Normal LV systolic function. LVEF 70% by visual estimate. Unable to determine LV diastolic function adequately in the setting of atrial fibrillation. 3. Moderate mitral annular calcification. Very mild mitral regurgitation. No mitral stenosis. 4. Moderate left atrial dilatation by left atrial volume index. 5. Suggestive of moderate elevation of estimated right ventricle systolic pressure (53 mmHg). Moderate tricuspid regurgitation. Normal right ventricle size and systolic function. Appearance of mild right atrial dilatation by visual assessment. 6. Small pericardial effusion without diastolic chamber collapse. Pericardial effusion measured 0.9-1.2 cm over the posterior basal segment of the left ventricle. No diastolic chamber collapse. 7. Left pleural effusion. MTDD
--- NOTE | 2020-08-06 13:21 | IPNPDOC ---
Text Note Date of Service The patient was seen on 08/06/20. NOTE SUBJECTIVE: -No acute complaints -Robust UOP in response to diuresis -Remains on 3L PHYSICAL EXAMINATION: VITAL SIGNS: please see below GENERAL APPEARANCE: Elderly, in NAD HEENT: NCAT, EOMI, MMM, anicteric CARDIOVASCULAR: Loud pansystolic murmur heard throughout the precordium, irregularly irregular LUNGS: bilateral posterior bibasilar wet crackles, no wheezing, no rhonchi ABDOMEN: normoactive sounds, soft, NTND EXTREMITIES: WWP, no pitting edema, mild puffiness at the ankles, 2+ DP pulses NEUROLOGICAL: CN2-12 intact, AOx3, moving all extremities without any noted foca l deficits PSYCHIATRIC: AOx3 LABORATORY DATA: WBC 8.6 Hgb 9.9 Platelets 330 Na 144 K 4 Cr 1.42 mag 1.4 MICROBIOLOGY: Please see below. ASSESSMENT: 89 yo W with a history of HTN, HLD, NIDDM2, CAD, history of angina, GERD, SILVIA, depression and anxiety who was brought in by her daughter for noted worsening dyspnea especially with exertion with declining exercise tolerance who is now admitted for NIKI, symptomatic anemia and workup of her MARTINEZ and functional decline. Plan: MARTINEZ: possibly multifactorial 2/2 anemia, possible CHF vs. critical valvulopathy given her very loud murmur -Plan as noted below for each of these problems -PT/OT, ARU accepted, pending medical optimization Anemia: Known history of SILVIA recently placed on ferrous gluconate, now admitting for presumed symptomatic anemia -transfused 1 unit -FOBT was negative -iron is beginning to respond, ferritin is still very low -B12 and folate are wnl -continue ferrous gluconate daily, with bowel regimen -daily CBC Newly noted CHF with exacerbation: no history of, but has a history of CAD and Afib and has a murmur -Elevated BNP with crackles on exam and CXR with cephalization -continue lasix 60 IV BID -Will dc rehman at this time, confirmed response to diuresis, with renal US without hydro or obstructive pathology -holding home amlodipine and ACEi with soft BPs for hemodynamic freedom to diurese -f/u TTE -continue her toprol -telemetry -1.8L/24h fluid -goal net negative 2L -monitor strict I/Os -daily weights Chronic Afib: -continue home toprol -continue eliquis 5 BID -telemetry NIKI: Likely congestive -No evidence of obstructive pathology on renal US -monitor daily BMP -continue lasix 60 IV BID -UA was bland -hold metformin, ACEi -will chiqui rehman now DM: -hold home metformin -SSI AC/HS -FSBG AC/HS -hypoglycemia protocol Depression: -continue mirtazapine and escitalopram GERD: -continue home omeprazole HLD: -continue home lipitor, reduced to 40mg from 80mg given recent weakness DVT ppx: on eliquis VS,Fishbone, I+O VS, Fishbone, I+O Laboratory Tests 08/05/20 13:49 08/06/20 05:29 Vital Signs Date Time Temp Pulse Resp B/P (MAP) Pulse Ox O2 Delivery O2 Flow Rate FiO2 08/06/20 08:34 89 125/81 08/06/20 06:00 98.0 20 90 Nasal Cannula 3.0 I&O- Last 24 Hours up to 6 AM 08/06/20 06:00 Intake Total 1720 ml Output Total 3650 ml Balance -1930 ml CHRISTIAN MARAVILLA MD August 06, 2020 09:11
[2020-08-06 14:00] VITALS: BP 97/59
[2020-08-06] MEDS: MIRTAZAPINE 15 MG TAB PO SCH (21:42)
[2020-08-06 22:00] VITALS: BP 109/73
[2020-08-07] MEDS: SLF 3 ML SYR IV SCH (05:02)
[2020-08-07 06:00] VITALS: BP 129/74
[2020-08-07 06:31] LABS: HEMATOCRIT 32.1 % (36.0-47.0); HEMOGLOBIN 8.9 g/dl (12.0-15.5); MEAN CORPUSCULAR HGB CONC 27.7 g/dl (32.0-36.5); MEAN CORPUSCULAR VOLUME 75.9 fl (80.0-96.0); PLATELET COUNT, AUTOMATED 298 10^3/uL (150-450); RED BLOOD COUNT 4.23 10^6/uL (4.00-5.40); WHITE BLOOD COUNT 8.4 10^3/uL (4.0-10.0)
[2020-08-07 06:49] LABS: CALCIUM LEVEL 8.1 MG/DL (8.8-10.2); CREATININE FOR GFR 1.44 MG/DL (0.55-1.30); GLOMERULAR FILTRATION RATE 36.6 (>32); MAGNESIUM LEVEL 1.5 MG/DL (1.8-2.4); POTASSIUM SERUM 3.4 MEQ/L (3.5-5.1)
[2020-08-07] MEDS: HumaLOG INSULIN (NovoLOG) PER UNIT SC SCH ×2 (07:30→12:24)
[2020-08-07] MEDS ORDERED: POTASSIUM CHLORIDE 10 MEQ SR TABLET PO ONE (08:10)
[2020-08-07] MEDS ORDERED: MAG SULF 1GM/100ML (MAG RUN) 1 GM in IV 1 EA IV ONE (09:00)
[2020-08-07] MEDS: FUROSEMIDE 100MG/10ML VIAL (J1940) IV SCH ×2 (10:06→10:14)
[2020-08-07] MEDS: ATORVASTATIN 20 MG TAB PO SCH (10:07)
[2020-08-07] MEDS: DOCUSATE SODIUM 100MG CAPSULE PO SCH (10:07)
[2020-08-07] MEDS: APIXABAN 5 MG TAB (ELIQUIS) PO SCH (10:07)
[2020-08-07] MEDS: FERROUS GLUCONATE 324 MG TAB PO SCH (10:08)
[2020-08-07] MEDS: METOPROLOL SUCC (TopROL XL) 50MG **XL** TAB PO SCH ×2 (10:08→10:14)
[2020-08-07] MEDS: OMEPRAZOLE 20 MG CAP PO SCH (10:08)
[2020-08-07] MEDS: MULTIVITAMINS/MINERALS THERAP 1 TAB PO SCH (10:08)
[2020-08-07] MEDS: ESCITALOPRAM OXALATE 10 MG TAB (LEXAPRO) PO SCH (10:08)
[2020-08-07] MEDS: NYSTATIN 100,000 UNITS/GM TOPICAL PWD 15 GM TOP SCH (10:09)
[2020-08-07 10:15] VITALS: BP 84/50
[2020-08-07 12:00] VITALS: BP 116/66
--- NOTE | 2020-08-07 12:12 | IPNPDOC ---
Text Note Date of Service The patient was seen on 08/07/20. NOTE SUBJECTIVE: -No acute complaints -Doing very well, now on room air PHYSICAL EXAMINATION: VITAL SIGNS: please see below GENERAL APPEARANCE: Elderly, in NAD HEENT: NCAT, EOMI, MMM, anicteric CARDIOVASCULAR: Loud pansystolic murmur heard throughout the precordium, irregularly irregular LUNGS: bilateral posterior wet crackles, no wheezing, no rhonchi ABDOMEN: normoactive sounds, soft, NTND EXTREMITIES: WWP, no pitting edema, mild puffiness at the ankles, 2+ DP pulses NEUROLOGICAL: CN2-12 intact, AOx3, moving all extremities without any noted focal deficits PSYCHIATRIC: AOx3 LABORATORY DATA: reviewed Cr 1.46 MICROBIOLOGY: Please see below. ASSESSMENT: 89 yo W with a history of HTN, HLD, NIDDM2, CAD, history of angina, GERD, SILVIA, depression and anxiety who was brought in by her daughter for noted worsening dyspnea especially with exertion with declining exercise tolerance who is now admitted for NIKI, symptomatic anemia and workup of her MARTINEZ and functional decline. Plan: MARTINEZ: possibly multifactorial 2/2 anemia, possible CHF vs. critical valvulopathy given her very loud murmur -Plan as noted below for each of these problems -PT/OT Anemia: Known history of SILVIA recently placed on ferrous gluconate, now admitting for presumed symptomatic anemia -s/p transfused 1 unit -FOBT was negative -iron is beginning to respond, ferritin is still very low -B12 and folate are wnl -continue ferrous gluconate daily, with bowel regimen Newly diagnosed HFpEF: no prior history of, but has a history of CAD and Afib and has a murmur -Elevated BNP with crackles on exam and CXR with cephalization -dc IV lasix will transition to PO lasix tomorrow AM -holding home ACEi and amlodipine -TTE showed HFpEF with moderate -continue her toprol -telemetry -1.8L/24h fluid -goal net negative 2L -monitor strict I/Os -daily weights Chronic Afib: -continue home toprol -continue eliquis 5 BID -telemetry NIKI: I suspect it is congestive but also worried about obstructive pathology given the poor output -monitor daily BMP -giving lasix 60 IV BID -renal US -UA with urine lytes -hold metformin, ACEi DM: -hold home metformin -SSI AC/HS -FSBG AC/HS -hypoglycemia protocol Depression: -continue mirtazapine and escitalopram GERD: -continue home omeprazole HLD: -continue home lipitor, reduced to 40mg from 80mg given recent weakness DVT ppx: on eliquis Dispo: to ARU today VS,Fishbone, I+O VS, Fishbone, I+O Laboratory Tests 08/07/20 05:40 Vital Signs Date Time Temp Pulse Resp B/P (MAP) Pulse Ox O2 Delivery O2 Flow Rate FiO2 08/07/20 06:00 98.6 83 18 129/74 (92) 92 Nasal Cannula 3.0 I&O- Last 24 Hours up to 6 AM 08/07/20 06:00 Intake Total 900 ml Output Total 425 ml Balance 475 ml CHRISTIAN MARAVILLA MD August 07, 2020 12:12
--- NOTE | 2020-08-07 12:30 | DS.PDOC ---
Discharge Summary General Date of Admission August 04, 2020 at 14:12 Date of Discharge 08/07/2020 Attending Physician: CHRISTIAN MARAVILLA MD Discharge Summary PROCEDURES PERFORMED DURING STAY: None ADMITTING DIAGNOSES: Symptomatic anemia DISCHARGE DIAGNOSES: SILVIA Moderate aortic stenosis New diagnosis of acute HFpEF Congestive nephropathy HTN HLD NIDDM2 CAD history of angina GERD Depression Anxiety COMPLICATIONS/CHIEF COMPLAINT: Symptomatic Anemia. HISTORY OF PRESENT ILLNESS: Very pleasant 89 yo W who lives independently in her home with a daughter who lives close by, with a history of HTN, HLD, NIDDM2, CAD, history of angina, GERD, SILVIA, depression and anxiety who was brought in by her daughter for noted worsening dyspnea especially with exertion with declining exercise tolerance, with noted hypoxemia at her PCP appointment earlier. The daughter reported that her mother had been having a smoldering decline in exercise tolerance and ability to perform even ADLs at times over months especially since the beginning of 06/2020. She was recently in the ED and diagnosed with CAP and was given a course of antibiotics and PCP recently diagnosed her with SILVIA (had it for years and used to be on replacement therapy but had resolved and stopped PO iron) and was placed on three times weekly ferrous gluconate. She has reportedly become increasingly more forgetful when at baseline was very sharp, did all her own accounting and computer work but has been forgetful recently. HOSPITAL COURSE In the ED, she was hypoxemic to low 80s and placed on 2L NC and was saturating 92% when I saw her. She had no actual physical complaints on ROS and denied any recent fever, chills, chest pain, palpitations, paroxysmal nocturnal dyspnea, cough, dysuria, hematuria. She did report weakness, shortness of breath with even minimal exertion, decreasing exercise tolerance, poor appetite and some weight loss though she could not give details of degree of loss. She is fully vaccinated for covid-19. ED evaluation was notable for EKG that showed Afib without ST segment changes, troponin that was <0.02, proBNP that was elevated to 5911, CXR that showed diffuse vascular congestion c/f CHF, WBC 12, Hgb 8.6, platelets 375, Na 143, K 3.6, Cr 1.39, iron 229, ferritin 15, folate >24, B12 437, FOBT negative. She was admitted for symptomatic anemia and likely congestive heart failure. During her hospitalization she was given 1u pRBCs with appropriate response, had a TTE that revealed moderate aortic stenosis and HFpEF and she was diuresed with IV lasix with improvement in her oxygenation back to room air with plateaued Cr that is being monitored carefully. She had initial oliguria that improved with diuretics and a transient rehman catheter and renal US showed no obstructive pathology. She is now being transitioned to PO diuretics with continued volume optimization and monitoring of renal function. In the meantime, she worked with PT/OT and also she ambulated safely was deconditioned from her recent baseline that would allow her to return to independent living to her home and was deemed appropriate for admission to the ARU. She is therefore being discharged to the ARU for intensive therapy with PM&R while i will continue her volume optimization and management of the NIKI as well. DISCHARGE MEDICATIONS: Please see below. ALLERGIES: Please see below. PHYSICAL EXAMINATION ON DISCHARGE: VITAL SIGNS: Please see below. GENERAL APPEARANCE: Elderly, in NAD HEENT: NCAT, EOMI, MMM, anicteric CARDIOVASCULAR: Loud pansystolic murmur heard throughout the precordium, irregularly irregular LUNGS: bilateral bibasilar crackles, no wheezing, no rhonchi ABDOMEN: normoactive sounds, soft, NTND EXTREMITIES: WWP, no pitting edema, 2+ DP pulses NEUROLOGICAL: CN2-12 intact, AOx3, moving all extremities without any noted focal deficits PSYCHIATRIC: AOx3 LABORATORY DATA: Please see below. IMAGING: CXR: Oxygen delivery tubing and EKG electrodes are seen. Cardiomegaly is observed. There is blunting of the pleural angles bilaterally, left greater than right consisten t with bilateral effusions. Pulmonary vasculature is cephalized and somewhat congested. IMPRESSION: CHF pattern. Renal US: The bilateral kidneys are normal in reniform shape with increased central sinus fat and cortical thinning consistent with chronic age-related renal disease. No hydronephrosis, nephrolithiasis, cystic or renal mass lesion noted bilaterally. Right kidney measures 10.1 x 4.2 x 4.3 cm. Left kidney measures 9.6 x 4.7 x 3.9 cm. Rehman catheter in collapsed bladder. IMPRESSION: Findings consistent with chronic medical renal disease. No hydronephrosis. TTE: 1. Severe focal thickening and focal calcific deposits of a 3-cusp aortic valvewith moderate reduction in aortic cusp mobility. Moderate aortic stenosis. No aortic regurgitation. 2. Mild focal hypertrophy of the basal anterior ventricular septum. Normal regional LV wall motion and wall thickening. Normal LV systolic function. LVEF 70% by visual estimate. Unable to determine LV diastolic function adequately in the setting of atrial fibrillation. 3. Moderate mitral annular calcification. Very mild mitral regurgitation. No mitral stenosis. 4. Moderate left atrial dilatation by left atrial volume index. 5. Suggestive of moderate elevation of estimated right ventricle systolic pressure (53 mmHg). Moderate tricuspid regurgitation. Normal right ventricle size and systolic function. Appearance of mild right atrial dilatation by visualassessment. 6. Small pericardial effusion without diastolic chamber collapse. Pericardial effusion measured 0.9-1.2 cm over the posterior basal segment of the left ve ntricle. No diastolic chamber collapse. 7. Left pleural effusion. PROGNOSIS: Good ACTIVITY: As tolerated DIET: consistent carb, 2g sodium DISCHARGE PLAN: ARU DISPOSITION: ARU DISCHARGE INSTRUCTIONS: ARU discharge. Needs PCP follow up shortly after discharge and cardiology referral ITEMS TO FOLLOWUP ON ON OUTPATIENT: ARU discharge. Needs PCP follow up shortly after discharge and cardiology referral DISCHARGE CONDITION: Stable TIME SPENT ON DISCHARGE: 45 minutes. Vital Signs/I&Os Vital Signs Date Time Temp Pulse Resp B/P (MAP) Pulse Ox O2 Delivery O2 Flow Rate FiO2 08/07/20 06:00 98.6 83 18 129/74 (92) 92 Nasal Cannula 3.0 I&O- Last 24 Hours up to 6 AM 08/07/20 06:00 Intake Total 900 ml Output Total 425 ml Balance 475 ml Laboratory Data Labs 24H Laboratory Tests 2 08/06/20 16:51: Bedside Glucose (Misc Panel) 116H 08/06/20 20:12: Bedside Glucose (Misc Panel) 97 08/07/20 05:40: Nucleated Red Blood Cells % (auto) 0.2H, Anion Gap 7L, Glomerular Filtration Rate 36.6, Calcium Level 8.1#L, Magnesium Level 1.5L, PW-Dup-R-Type Natriuretic Peptide 2374H 08/07/20 11:22: Bedside Glucose (Misc Panel) 168H CBC/BMP Laboratory Tests 08/07/20 05:40 FSBS Laboratory Tests Test 08/06/20 16:51 08/06/20 20:12 08/07/20 11:22 Range/Units Bedside Glucose (Misc Panel) 116 97 168 83-110 MG/DL Microbiology Microbiology 08/04/20 Blood Culture - Preliminary, Resulted No Growth after 48 hours. All Specime... 08/04/20 Blood Culture - Preliminary, Resulted No Growth after 48 hours. All Specime... Discharge Medications Scheduled Amlodipine Besylate (Amlodipine Besylate) 10 Mg Tab, 10 MG PO DAILY, (Reported) going to discontinue Apixaban (Eliquis) 5 Mg Tablet, 5 MG PO BID, (Reported) Atorvastatin Calcium (Lipitor) 80 Mg Tab, 80 MG PO DAILY, (Reported) Benazepril HCl (Benazepril HCl) 40 Mg Tab, 40 MG PO DAILY, (Reported) Escitalopram Oxalate (Lexapro) 20 Mg Tablet, 20 MG PO DAILY, (Reported) Ferrous Gluconate (Ferrous Gluconate) 324 Mg Tablet, 324 MG PO 3XW, (Reported) MON, TUE, TUE Icosapent Ethyl (Vascepa) 1 Gm Capsule, 2 CAP PO BID, (Reported) Melatonin (Melatonin) 10 Mg Capsule, 10 MG PO QPM for sleep, (Reported) Metformin HCl (Metformin ER Osmotic) 500 Mg Tab, 500 MG PO QHS, (Reported) AROUND MIDNIGHT Metoprolol Succinate (Metoprolol Succinate) 50 Mg Tab.er.24h, 50 MG PO DAILY, (Reported) Mirtazapine (Remeron) 45 Mg Tab.rapdis, 45 MG PO QHS, (Reported) Multivit-Min/Iron/Folic/Lutein (Centrum Silver Women Tablet) 1 Each Tablet, 1 EACH PO DAILY, (Reported) Omeprazole (Omeprazole) 40 Mg Cap, 40 MG PO BID, (Reported) Scheduled PRN Acetaminophen (Acetaminophen) 500 Mg Tablet, 1,000 MG PO Q6H PRN for PAIN OR FEVER, (Reported) Allergies Coded Allergies: Penicillins (Verified Allergy, Intermediate, RASH, 07/02/20) Sulfa (Sulfonamide Antibiotics) (Verified Allergy, Unknown, 07/19/18) lactose (Verified Adverse Reaction, Mild, diarrhea, 07/19/18) CHRISTIAN MARAVILLA MD August 07, 2020 12:30
[2020-08-07] MEDS ORDERED: DOK1CAP7 PO (12:35)
[2020-08-07] MEDS ORDERED: FERR32TA PO (12:35)
[2020-08-07] MEDS ORDERED: NYST10006 TOP (12:35)
[2020-08-07] MEDS ORDERED: LASI40TA9 PO (12:35)
[2020-08-07 14:00] VITALS: BP 100/66
[2020-08-07 15:47] LABS: CREATININE FOR GFR 1.53 MG/DL (0.55-1.30); GLOMERULAR FILTRATION RATE 34.1 (>32); POTASSIUM SERUM 4.1 MEQ/L (3.5-5.1)
== END 2020-08-07 15:28 | DRG 291 ==
LOC: M ED 10:26 → M ED INP 14:12 → ENRESERV 15:10 → M PCU 16:17 → M MSPAV 08-05 11:30
PROVIDERS: ADMIT Internal Medicine; ATTEND Internal Medicine
PROC: 30233N1 Transfusion of Nonautologous Red Blood Cells into Peripheral Vein, Percutaneous Approach (ICD-10-PCS; principal; 2020-08-04)
DX: I11.0 Hypertensive heart disease with heart failure (principal); I50.31 Acute diastolic (congestive) heart failure; N17.9 Acute kidney failure, unspecified; I48.20 Chronic atrial fibrillation, unspecified; E11.9 Type 2 diabetes mellitus without complications; R06.00 Dyspnea, unspecified; E78.5 Hyperlipidemia, unspecified; I25.10 Atherosclerotic heart disease of native coronary artery without angina pectoris; K21.9 Gastro-esophageal reflux disease without esophagitis; D50.9 Iron deficiency anemia, unspecified; F32.9 Major depressive disorder, single episode, unspecified; F41.9 Anxiety disorder, unspecified; Z90.49 Acquired absence of other specified parts of digestive tract; Z90.79 Acquired absence of other genital organ(s); Z79.01 Long term (current) use of anticoagulants; Z79.84 Long term (current) use of oral hypoglycemic drugs; Z79.899 Other long term (current) drug therapy; Z88.0 Allergy status to penicillin; Z88.2 Allergy status to sulfonamides; Z91.011 Allergy to milk products; R01.1 Cardiac murmur, unspecified; I35.0 Nonrheumatic aortic (valve) stenosis

== ENCOUNTER 2020-08-07 12:43 | Inpatient (IN) | payer MEDICARE ==
[~2020-08-07] VITALS: Ht 162.6 cm; Wt 75.2 kg
[~2020-08-07 12:43] MED LIST changes: +CENT1TAB9 PO; +DOK1CAP7 PO; +FERR32TA PO; +LASI40TA9 PO; +METO1TAB7 PO; +NYST10006 TOP; +REME45TA2 PO
[2020-08-07] MEDS ORDERED: GLUCAGON INJ 1MG VIAL SC PRN (13:55)
[2020-08-07] MEDS ORDERED: BISACODYL 10 MG SUPP PR PRN (13:55)
[2020-08-07] MEDS ORDERED: GLUCOSE 4GM CHEW TABLET PO PRN (13:55)
[2020-08-07] MEDS ORDERED: DEXTROSE 50% 50 ML SYRINGE IV PRN (13:55)
[2020-08-07] MEDS ORDERED: MIRALAX *UNIT DOSE* 17GM PACKET PO PRN (13:55)
[2020-08-07] MEDS ORDERED: ACETAMINOPHEN TAB 650MG DOSE (2X325MG) PO PRN (13:55)
[2020-08-07 15:39] VITALS: BP 122/64
[2020-08-07] MEDS ORDERED: HumaLOG INSULIN (NovoLOG) PER UNIT SC SCH ×2 (17:30→21:00)
[2020-08-07] MEDS ORDERED: metFORMIN (GLUCOPHAGE) 500MG TAB PO SCH (18:00)
[2020-08-07] MEDS: REMEDY PHYTOPLEX Z-GUARD PASTE 113GM TUBE (FROM STOREROOM PRODUCT) TOP SCH ×2 (18:00→21:00)
[2020-08-07 20:00] VITALS: BP 113/69
[2020-08-07] MEDS: OMEPRAZOLE 20 MG CAP PO SCH (21:08)
[2020-08-07] MEDS: DOCUSATE SODIUM 100MG CAPSULE PO SCH (21:08)
[2020-08-07] MEDS: SENNA 8.6 MG TAB (SENOKOT) PO SCH (21:08)
[2020-08-07] MEDS: NYSTATIN 100,000 UNITS/GM TOPICAL PWD 15 GM TOP SCH (21:08)
[2020-08-07] MEDS: MIRTAZAPINE 15 MG TAB PO SCH (21:08)
[2020-08-07] MEDS: APIXABAN 5 MG TAB (ELIQUIS) PO SCH (21:10)
[2020-08-08 06:00] VITALS: BP 151/89
[2020-08-08 07:04] LABS: BASO # 0.1 10^3/uL (0.0-0.2); BASO % 0.8 % (0.0-1.0); EOS # 0.2 10^3/uL (0.0-0.5); EOS % 2.7 % (0.0-3.0); HEMATOCRIT 31.6 % (36.0-47.0); HEMOGLOBIN 8.7 g/dl (12.0-15.5); LYMPH # 1.7 10^3/uL (1.5-5.0); LYMPH % 25.6 % (24.0-44.0); MEAN CORPUSCULAR HEMOGLOBIN 21.1 pg (27.0-33.0); MEAN CORPUSCULAR HGB CONC 27.5 g/dl (32.0-36.5); MEAN CORPUSCULAR VOLUME 76.5 fl (80.0-96.0); MONO # 0.7 10^3/uL (0.0-0.8); MONO % 10.2 % (2.0-8.0); NEUTROPHILS % 59.9 % (36.0-66.0); PLATELET COUNT, AUTOMATED 270 10^3/uL (150-450); RED BLOOD COUNT 4.13 10^6/uL (4.00-5.40); WHITE BLOOD COUNT 6.6 10^3/uL (4.0-10.0)
[2020-08-08 07:27] LABS: ALBUMIN 2.5 GM/DL (3.2-5.2); BILIRUBIN,TOTAL 0.4 MG/DL (0.2-1.0); CALCIUM LEVEL 8.4 MG/DL (8.8-10.2); CREATININE FOR GFR 1.47 MG/DL (0.55-1.30); GLOMERULAR FILTRATION RATE 35.7 (>32); POTASSIUM SERUM 3.9 MEQ/L (3.5-5.1); TOTAL PROTEIN 5.7 GM/DL (6.4-8.2)
[2020-08-08] MEDS: FERROUS GLUCONATE 324 MG TAB PO SCH (08:42)
[2020-08-08] MEDS: APIXABAN 5 MG TAB (ELIQUIS) PO SCH ×2 (08:42→20:37)
[2020-08-08] MEDS: ESCITALOPRAM OXALATE 10 MG TAB (LEXAPRO) PO SCH (08:42)
[2020-08-08] MEDS: ATORVASTATIN 20 MG TAB PO SCH (08:43)
[2020-08-08] MEDS: MULTIVITAMINS/MINERALS THERAP 1 TAB PO SCH (08:43)
[2020-08-08] MEDS: DOCUSATE SODIUM 100MG CAPSULE PO SCH ×2 (08:43→20:37)
[2020-08-08] MEDS: OMEPRAZOLE 20 MG CAP PO SCH ×2 (08:43→20:37)
[2020-08-08] MEDS: NYSTATIN 100,000 UNITS/GM TOPICAL PWD 15 GM TOP SCH ×2 (08:44→20:38)
[2020-08-08] MEDS: REMEDY PHYTOPLEX Z-GUARD PASTE 113GM TUBE (FROM STOREROOM PRODUCT) TOP SCH ×3 (08:45→20:38)
[2020-08-08] MEDS ORDERED: METOPROLOL SUCC (TopROL XL) 50MG **XL** TAB PO SCH (09:00)
[2020-08-08] MEDS ORDERED: FUROSEMIDE 40 MG TAB PO SCH (09:00)
--- NOTE | 2020-08-08 09:42 | HPEPDOC ---
Manager Erp Note DATE OF ADMISSION: 08-07-20 DATE OF SERVICE: 08-08-20 TIME OF ADMISSION: Please refer to physician's admission order. SOURCE OF ADMISSION INFORMATION: [facility] record and patient CHIEF COMPLAINT: weakness in setting of CHF exacerbation HISTORY OF PRESENT ILLNESS: 89F pmh HTN, HLD, chronic Afib, CAD with angina, DM, iron deficiency anemia, anxiety/depression with recent treatment for community acquired PNA who presented to [facility] ED on 08-04-20 complaining of difficulty breathing and was found to be hypoxic. She was found to be in Afib on EKG with elevated BNP with CXR showing vascular congestion and she was admitted for CHF exacerbation and diur esed. An ECHO was performed showing moderate aortic stenosis, pericardial effusion, and left pleural effusion. She developed NIKI, her home metformin was held, and renal US showed chronic medical renal disease. She was given 1 unit prbc for her anemia, was placed on a fluid restriction, and evaluated by therapy where she was noted to have poor endurance and difficulty with ADLs and mobility, deemed medically appropriate for discharge to ARU on 08-07-20. REVIEW OF SYSTEMS: The following is a completed review of systems and has been reviewed. Review of systems otherwise unremarkable. PAIN: Patient self reports no pain EYES: No recent vision changes EARS, NOSE, & THROAT: No throat pain, or dysphagia, or rhinorrhea CARDIOVASCULAR: Denies chest pain or palpitations PULMONARY: Denies shortness of breath except on exertion GASTROINTESTINAL: Denies constipation/diarrhea GENITOURINARY: denies dysuria. MUSCULOSKELETAL: +generalized weakness NEUROLOGICAL:denies paresthesias HEMATOLOGICAL: denies easy bruising, +anemia SKIN: denies rash PSYCHIATRIC: Unremarkable All other review of systems found to be negative. PAST MEDICAL HISTORY: as per HPI PAST SURGICAL HISTORY: Cholecystectomy, hysterectomy, bladder prolapse, breast lump removal ALLERGIES: Please see below. MEDICATIONS: Please see below. SOCIAL HISTORY: No smoking/etoh/illicit drugs DIET: low sodium, fluid restrict PHYSICAL EXAMINATION: VITAL SIGNS: Please see below GENERAL: Pleasant and cooperative. No acute distress. HEENT: PERRL. Extraocular movements intact. Clear conjunctiva CARDIOVASCULAR: Regular rate and rhythm. No murmurs, rubs, or gallops LUNGS: Clear to auscultation bilaterally. No wheezes. No rhonchi ABDOMEN: Soft, nontender, nondistended. Positive bowel sounds. Normal active bowel sounds. NEUROLOGICAL: Alert and oriented times three. Cranial nerves II through XII grossly intact. Sensation grossly intact EXTREMITIES: 5\5 strength bilateral upper extremities. 5\5 strength right lower extremity. 5/5 strength in left lower extremity. LABORATORY DATA: Please see below. IMAGING: Imaging documentation personally reviewed by record FUNCTIONAL STATUS: Premorbid: Independent with all activities of daily life as well as mobility On Admission: stand-by assist for bed mobility, functional transfers, dressing, toileting, ambulating GOALS: Mod-I bed mobility, functional transfers, dressing, toileting, ambulating ASSESSMENT:89-year-old F with past medical history of Afib, CAD, DM who presents status post new dx of CHF with exacerbation and weakness, requiring supplemental 02. PLAN: 1. Rehab- PT/OT advance moblity and ADLs, strengthen/stretch/maintain ROM all 4 limbs 2. Cardiac- new dx of chronic CHF, likely diastolic with recent ECHO showing preserved EF- c/u daily weights, fluid restrict, lasix -Afib on beta-ester and eliquis -HTN c/u BP meds -HLD c/u statin -medicine consulted to assist in overall management 3. Resp- monitor for infection, s/p treatment for recent CAP -currently on 02, attempt to wean while on ARU 4. Endo- hx of DM, patient refusing ISS and metformin contra-indicated with current renal function, will order FS BID with hypoglycemic protocol in place, may need alternative oral agent prior to d/c will monitor 5. GI ppx- prilosec 6. renal- CKD with recent NIKI, will consult renal to follow along and help with fluid management in setting of CHF 7. DVT ppx- on eliquis 8. Pain- tylenol 9. Psych- hx of depression/anxiety- lexapro 10. Dispo- TBD POST ADMISSION PHYSICIAN EVALUATION: Medical and functional status: Description of medical status, medical assessment: As above. Rehabilitation diagnosis and current and prior cold morbid medical conditions as above. Risk of complications and plans to mitigate them as above. Description of functional status current status is as above. Prior status as above. Status compared to preadmission: There are no clinically significant differences between the patient's current status and the information described on the preadmission screening document. Treatment plan anticipated: Treatment plan is as described above. Required disciplines including physical therapy, occupational therapy, others as noted above Intensity of services: 3 hours a day, 6 days a week. Special considerations: There are no specific special or safety considerations that would likely preclude immediate implementation of an intensive rehabilitation program or subsequently influence the plan of care. ATTESTATION: Considering all the information above, it is my best judgment that this patient requires intensive rehabilitation therapy as described above and an inpatient hospital environment due to the complexity of nursing, medical, and rehabilitation needs required by the patient. Furthermore, this patient can reasonably be expected to participate in an benefit from an inpatient rehabilitation stay with an interdisciplinary team approach to the delivery of rehabilitation care under the direction and supervision of rehabilitation physician. PROGNOSIS: good ESTIMATED LENGTH OF STAY:7-10 days. PROJECTED DISCHARGE DESTINATION: [Home with family support and any durable medical equipment required to increase functional safety and mobility]. TIME SPENT COUNSELING AND COORDINATING INITIAL CARE: Greater than minutes. Vital Signs Vital Sign - Last 24 Hours 08/07/20 08/07/20 08/08/20 08/08/20 15:39 20:00 06:00 06:45 Temp 96.8 97.4 98.2 Pulse 107 82 104 Resp 18 18 18 16 B/P (MAP) 122/64 (83) 113/69 (84) 151/89 (109) Pulse Ox 95 91 88 81 O2 Delivery Room Air Room Air Room Air Room Air 08/08/20 08/08/20 06:50 08:43 Pulse 99 B/P (MAP) 151/89 Pulse Ox 92 O2 Delivery Nasal Cannula O2 Flow Rate 1.0 Laboratory Data CBC/BMP Laboratory Tests 08/08/20 06:42 Labs 24H Laboratory Tests 2 08/08/20 05:32: Bedside Glucose (Misc Panel) 123H 08/08/20 06:42: Immature Granulocyte % (Auto) 0.8, Neutrophils (%) (Auto) 59.9, Lymphocytes (%) (Auto) 25.6, Monocytes (%) (Auto) 10.2H, Eosinophils (%) (Auto) 2.7, Basophils (%) (Auto) 0.8, Neutrophils # (Auto) 4.0, Lymphocytes # (Auto) 1.7, Monocytes # (Auto) 0.7, Eosinophils # (Auto) 0.2, Basophils # (Auto) 0.1, Nucleated Red Blood Cells % (auto) 0.0, Anion Gap 5L, Glomerular Filtration Rate 35.7, Calcium Level 8.4L, Total Bilirubin 0.4, Aspartate Amino Transf (AST/SGOT) 19, Alanine Aminotransferase (ALT/SGPT) 13, Alkaline Phosphatase 85, Total Protein 5.7L, Albumin 2.5L, Albumin/Globulin Ratio 0.8L FSBS Laboratory Tests Test 08/08/20 05:32 Range/Units Bedside Glucose (Misc Panel) 123 83-110 MG/DL Home Medications Scheduled Apixaban (Eliquis) 5 Mg Tablet, 5 MG PO BID, (Reported) Atorvastatin Calcium (Lipitor) 80 Mg Tab, 80 MG PO DAILY, (Reported) Docusate Sodium (Dok) 100 Mg Capsule, 100 MG PO BID Escitalopram Oxalate (Lexapro) 20 Mg Tablet, 20 MG PO DAILY, (Reported) Ferrous Gluconate (Ferrous Gluconate) 324 Mg Tablet, 324 MG PO DAILY MON, WED, FRI Furosemide (Lasix) 40 Mg Tablet, 1 TAB PO DAILY Icosapent Ethyl (Vascepa) 1 Gm Capsule, 2 CAP PO BID, (Reported) Melatonin (Melatonin) 10 Mg Capsule, 10 MG PO QPM, (Reported) Metformin HCl (Metformin ER Osmotic) 500 Mg Tab, 500 MG PO QHS, (Reported) AROUND MIDNIGHT Metoprolol Succinate (Metoprolol Succinate) 50 Mg Tab.er.24h, 50 MG PO DAILY, (Reported) Mirtazapine (Remeron) 45 Mg Tab.rapdis, 45 MG PO QHS, (Reported) Multivit-Min/Iron/Folic/Lutein (Centrum Silver Women Tablet) 1 Each Tablet, 1 E ACH PO DAILY, (Reported) Nystatin (Nystop) 60 Gm Powder, 0 DOSE TOP BID Omeprazole (Omeprazole) 40 Mg Cap, 40 MG PO BID, (Reported) Scheduled PRN Acetaminophen (Acetaminophen) 500 Mg Tablet, 1,000 MG PO Q6H PRN for PAIN OR FEVER, (Reported) Allergies Coded Allergies: Penicillins (Verified Allergy, Intermediate, RASH, 07/02/20) Sulfa (Sulfonamide Antibiotics) (Verified Allergy, Unknown, 07/19/18) lactose (Verified Adverse Reaction, Mild, diarrhea, 07/19/18) A-FIB/CHADSVASC A-FIB History Current/History of A-Fib/PAF?: Yes Current PO Anticoag Therapy: Yes TAYLOR RODRIGUEZ MD August 08, 2020 09:42
[2020-08-08 09:48] LABS: MAGNESIUM LEVEL 1.8 MG/DL (1.8-2.4)
--- NOTE | 2020-08-08 10:53 | IPNPDOC ---
Text Note Date of Service The patient was seen on 08/08/20. NOTE SUBJECTIVE: -No acute complaints -Doing well on room air PHYSICAL EXAMINATION: VITAL SIGNS: please see below GENERAL APPEARANCE: Elderly, in NAD HEENT: NCAT, EOMI, MMM, anicteric CARDIOVASCULAR: Loud pansystolic murmur heard throughout the precordium, irregularly irregular LUNGS: Bibasilar posterior crackles, no wheezing, no rhonchi ABDOMEN: normoactive sounds, soft, NTND EXTREMITIES: WWP, no pitting edema, mild puffiness at the ankles, 2+ DP pulses NEUROLOGICAL: CN2-12 intact, AOx3, moving all extremities without any noted focal deficits PSYCHIATRIC: AOx3 LABORATORY DATA: reviewed Cr 1.47 WBC 6.6 Hgb 8.7 Na 143 K 3.9 MICROBIOLOGY: Please see below. ASSESSMENT: 89 yo W with a history of HTN, HLD, NIDDM2, CAD, history of angina, GERD, SILVIA, depression and anxiety who was brought in by her daughter for noted worsening dyspnea especially with exertion with declining exercise tolerance who is now admitted for NIKI, symptomatic anemia and workup of her MARTINEZ and functional decline. Plan: MARTINEZ: possibly multifactorial 2/2 anemia, possible CHF vs. valvulopathy given moderate -Plan as noted below for each of these problems -PT/OT Anemia: Known history of SILVIA recently placed on ferrous gluconate, now admitting for presumed symptomatic anemia -s/p transfused 1 unit -FOBT was negative -iron is beginning to respond, ferritin is still very low -B12 and folate are wnl -continue ferrous gluconate daily, with bowel regimen Newly diagnosed HFpEF: no prior history of, but has a history of CAD and Afib and has a murmur -Elevated BNP with crackles on exam and CXR with cephalization -40mg PO lasix QD -holding home ACEi and amlodipine -TTE showed HFpEF with moderate -continue her toprol -telemetry -1.8L/24h fluid -goal net negative 2L -monitor strict I/Os -daily weights -daily BMP and Mag Chronic Afib: -continue home toprol -continue eliquis 5 BID -telemetry NIKI: I suspect it is congestive and has ongoing diuresis. -monitor daily BMP -lasix 40mg PO daily -renal US was without evidence of obstruction -UA was bland -hold metformin, ACEi DM: -holding home metformin -SSI AC/HS -FSBG AC/HS -hypoglycemia protocol Depression: -continue mirtazapine and escitalopram GERD: -continue home omeprazole HLD: -continue home lipitor DVT ppx: on eliquis VS,Fishbone, I+O VS, Fishbone, I+O Laboratory Tests 08/08/20 06:42 Vital Signs Date Time Temp Pulse Resp B/P (MAP) Pulse Ox O2 Delivery O2 Flow Rate FiO2 08/08/20 08:43 99 151/89 08/08/20 06:50 92 Nasal Cannula 1.0 08/08/20 06:45 16 08/08/20 06:00 98.2 I&O- Last 24 Hours up to 6 AM 08/08/20 06:00 Intake Total 75 ml Balance 75 ml CHRISTIAN MARAVILLA MD August 08, 2020 09:27
[2020-08-08 14:00] VITALS: BP 132/78
--- NOTE | 2020-08-08 16:35 | REP ---
INDICATION: re-eval chf COMPARISON: 08/04/2020 TECHNIQUE: Portable AP view of the chest FINDINGS: Mediastinum and cardiac silhouette are stable. Increased pulmonary vasculature and interstitial markings are again noted. Decreased pleural effusions and bibasilar atelectasis in comparison to recent prior examination. No pneumothorax. IMPRESSION: Improved aeration with decreased pleural effusions and basilar atelectasis. <Electronically signed by Emiliano Salas > 08/08/20 [id number]
[2020-08-08 20:15] VITALS: BP 118/62
[2020-08-08] MEDS: MIRTAZAPINE 15 MG TAB PO SCH (20:37)
[2020-08-08] MEDS: FUROSEMIDE 40 MG TAB PO SCH (20:37)
[2020-08-08] MEDS: SENNA 8.6 MG TAB (SENOKOT) PO SCH (20:37)
[2020-08-09 05:50] VITALS: BP 112/70
[2020-08-09 06:00] VITALS: BP 112/70
[2020-08-09] MEDS: DOCUSATE SODIUM 100MG CAPSULE PO SCH ×2 (08:57→20:09)
[2020-08-09] MEDS: MULTIVITAMINS/MINERALS THERAP 1 TAB PO SCH (08:58)
[2020-08-09] MEDS: ATORVASTATIN 20 MG TAB PO SCH (08:58)
[2020-08-09] MEDS: ESCITALOPRAM OXALATE 10 MG TAB (LEXAPRO) PO SCH (08:58)
[2020-08-09] MEDS: FERROUS GLUCONATE 324 MG TAB PO SCH (08:58)
[2020-08-09] MEDS: OMEPRAZOLE 20 MG CAP PO SCH ×2 (08:58→20:09)
[2020-08-09] MEDS: APIXABAN 5 MG TAB (ELIQUIS) PO SCH ×2 (08:58→20:09)
[2020-08-09] MEDS: FUROSEMIDE 40 MG TAB PO SCH (08:58)
[2020-08-09] MEDS: REMEDY PHYTOPLEX Z-GUARD PASTE 113GM TUBE (FROM STOREROOM PRODUCT) TOP SCH ×3 (08:59→20:10)
[2020-08-09 09:00] VITALS: BP 108/62
[2020-08-09] MEDS: METOPROLOL SUCC *XL* 25MG TAB (TopROL *XL*) PO SCH (09:00)
[2020-08-09] MEDS: NYSTATIN 100,000 UNITS/GM TOPICAL PWD 15 GM TOP SCH ×2 (10:12→20:10)
[2020-08-09 10:22] LABS: CALCIUM LEVEL 8.2 MG/DL (8.8-10.2); CREATININE FOR GFR 1.47 MG/DL (0.55-1.30); GLOMERULAR FILTRATION RATE 35.7 (>32); MAGNESIUM LEVEL 1.4 MG/DL (1.8-2.4); POTASSIUM SERUM 3.6 MEQ/L (3.5-5.1)
[2020-08-09 14:00] VITALS: BP 107/65
[2020-08-09] MEDS ORDERED: MAG SULF 1GM/100ML (MAG RUN) 1 GM in IV 1 EA IV ONE (20:00)
[2020-08-09] MEDS ORDERED: POTASSIUM CHLORIDE 10 MEQ SR TABLET PO ONE (20:00)
[2020-08-09] MEDS: SENNA 8.6 MG TAB (SENOKOT) PO SCH (20:09)
[2020-08-09] MEDS: MIRTAZAPINE 15 MG TAB PO SCH (20:09)
[2020-08-09 20:15] VITALS: BP 127/78
--- NOTE | 2020-08-09 20:26 | IPN ---
PROGRESS NOTE DATE: 08/09/2020 SUBJECTIVE: Mrs. Orozco is seen this morning on her bedside. She is feeling well and denies any dyspnea, chest pain, nausea or vomiting. PHYSICAL EXAMINATION: VITALS: Temperature 97.2 degrees Fahrenheit, heart rate 78 per minute, respiratory rate 18 per minute, blood pressure 112/70 mmHg, oxygen saturation 94% on 2 liters oxygen. HEENT: Head is atraumatic. Neck is supple and JVD mildly elevated. LUNGS: With a few basilar rales. HEART: Sounds are regular. ABDOMEN: Soft and nontender. Bowel sounds are normal. EXTREMITIES: Without any cyanosis or clubbing. NEUROLOGIC: She is awake, alert and oriented x3. LABORATORY STUDIES: Today's labs show sodium 142, potassium 3.6, CO2 28, BUN 26, creatinine 1.47, glucose 143, calcium 8.2 and magnesium 1.4. Hemoglobin 8.7 and hematocrit 31.6. PROBLEMS: 1. Congestive heart failure: Volume status seems to be improving. She has been receiving Furosemide 40 mg b.i.d. After today, I am going to cut down her Furosemide dose to 40 mg just once a day and will watch her for the next 24 to 48 hours. 2. Hypokalemia: Potassium level is down to 3.6. She will be given one dose of potassium chloride 20 mEq today and electrolytes will be checked again tomorrow. 3. Acute and chronic kidney disease: Kidney function unchanged and at this point we will continue to monitor while she is being diuresed. 4. Anemia: She does have significant anemia without any acute blood loss. She has been on iron supplement, which will be continued. She has been on chronic anticoagulation with Eliquis 5 mg b.i.d. with possible chronic iron deficiency anemia. I will check her iron studies. 5. Hypomagnesemia: Magnesium level is 1.4 and we will give her magnesium supplement. Magnesium level will need to be rechecked.
[2020-08-10 06:35] VITALS: BP 124/89
[2020-08-10 07:01] LABS: CALCIUM LEVEL 8.3 MG/DL (8.8-10.2); CREATININE FOR GFR 1.08 MG/DL (0.55-1.30); MAGNESIUM LEVEL 1.9 MG/DL (1.8-2.4); POTASSIUM SERUM 4.1 MEQ/L (3.5-5.1)
[2020-08-10] MEDS: DOCUSATE SODIUM 100MG CAPSULE PO SCH ×2 (08:51→20:55)
[2020-08-10] MEDS: ESCITALOPRAM OXALATE 10 MG TAB (LEXAPRO) PO SCH (08:51)
[2020-08-10] MEDS: MULTIVITAMINS/MINERALS THERAP 1 TAB PO SCH (08:51)
[2020-08-10] MEDS: OMEPRAZOLE 20 MG CAP PO SCH ×2 (08:51→20:54)
[2020-08-10] MEDS: FERROUS GLUCONATE 324 MG TAB PO SCH (08:51)
[2020-08-10] MEDS: ATORVASTATIN 20 MG TAB PO SCH (08:51)
[2020-08-10] MEDS: APIXABAN 5 MG TAB (ELIQUIS) PO SCH ×2 (08:51→20:55)
[2020-08-10] MEDS: FUROSEMIDE 40 MG TAB PO SCH (08:51)
[2020-08-10] MEDS: METOPROLOL SUCC *XL* 25MG TAB (TopROL *XL*) PO SCH (08:52)
[2020-08-10] MEDS: REMEDY PHYTOPLEX Z-GUARD PASTE 113GM TUBE (FROM STOREROOM PRODUCT) TOP SCH ×3 (08:52→20:53)
[2020-08-10] MEDS: NYSTATIN 100,000 UNITS/GM TOPICAL PWD 15 GM TOP SCH ×2 (08:53→20:55)
--- NOTE | 2020-08-10 13:16 | IPN ---
PROGRESS NOTE DATE: 08/10/2020 SUBJECTIVE: Mrs. Orozco is seen this morning on her bedside. She just finished her physical therapy and walked back to her room. She feels slightly short of breath. She denies any nausea or vomiting. PHYSICAL EXAMINATION: VITAL SIGNS: Temperature 97.3 degrees Fahrenheit, heart rate 88 per minute, respiratory rate 20 per minute, blood pressure 134/72 mmHg, oxygen saturation 94%. HEAD: Atraumatic. NECK: Supple without JVD or thyroid enlargement. LUNGS: Few basilar rales bilaterally. HEART: Sounds regular rhythm without pericardial rub. ABDOMEN: Soft and nontender. Bowel sounds are normal. EXTREMITIES: Without any cyanosis or clubbing. NEUROLOGIC: She is at her baseline mentation without any focal deficit. LABORATORY STUDIES: Today's labs show improvement in her kidney function with BUN down to 23 and creatinine 1.08. Glucose 115 and potassium 8.3. Magnesium is now up to 1.9. Sodium 143 and potassium 4.1. PROBLEMS: 1. Acute kidney injury superimposed on chronic kidney disease: Kidney function improved compared to last couple of days. Electrolytes are now stable. 2. Congestive heart failure: Volume status much better and her Lasix dose has already been cut down to once a day 40 mg and will continue with the same. 3. Hypomagnesemia: She was given magnesium sulfate 1 gm yesterday and magnesium level has improved. 4. Anemia: She did have hemoglobin of 8.7 on August 08. Her CBC will be checked again tomorrow.
[2020-08-10 14:00] VITALS: BP 148/74
--- NOTE | 2020-08-10 17:05 | CR ---
NEPHROLOGY CONSULTATION DATE: 08/08/2020 REQUESTING PHYSICIAN: Radha Winn M.D. REASON FOR CONSULTATION: Management of diuretics in this patient with congestive heart failure and chronic kidney disease (CKD) stage III. HISTORY OF PRESENT ILLNESS: Ms. Prabha Orozco is an 89-year-old female with a past medical history of hypertension, dyslipidemia, chronic atrial fibrillation, coronary artery disease, iron deficiency anemia, chronic kidney disease (CKD) stage III, anxiety, depression, probable diastolic congestive heart failure (echocardiogram August 06, 2020 with left ventricular ejection fraction 70%, but unable to determine diastolic function in the setting of atrial fibrillation). Also past medical history of moderate aortic stenosis and moderate tricuspid regurgitation. Patient was recently admitted to [facility] from August 04, 2020 to August 07, 2020 with fluid overload and congestive heart failure exacerbation, along with symptomatic anemia. Lung imaging had shown pulmonary vascular congestion and bilateral pleural effusions. The patient was started on diuretics and she was also transfused 1 unit of packed red blood cells. Her creatinine on admission on August 04, 2020, was 1.4 and it remained stable over her hospitalization. She was evaluated by therapy and noted to have poor endurance and difficulty with mobility and she was deemed medically appropriate for discharge to the acute rehabilitation unit on August 07, 2020. She continues to require oxygen and has been on 2 liters via nasal cannula and tells me she was not on chronic oxygen prior to this hospitalization, and nephrology evaluation was requested for the management of her diuretic, given her CKD stage III. PAST MEDICAL HISTORY: 1. Chronic kidney disease (CKD) stage III. 2. Probable diastolic congestive heart failure. 3. Hypertension. 4. Dyslipidemia. 5. Chronic atrial fibrillation. 6. Coronary artery disease. 7. Diabetes mellitus. 8. Iron deficiency anemia. 9. Anxiety/depression. 10. Recent bout of community-acquired pneumonia. 11. Moderate aortic stenosis. 12. Moderate tricuspid regurgitation. 13. History of bilateral pleural effusion and small pericardial effusion. PAST SURGICAL HISTORY: 1. Cholecystectomy. 2. Hysterectomy. 3. Bladder prolapse. 4. Breast lump removal. ALLERGIES: PENICILLIN, SULFA, LACTOSE. HOME MEDICATIONS: Reviewed and include: - Eliquis 5 mg by mouth twice a day - Lipitor 80 mg daily - docusate 100 mg by mouth twice a day - Lexapro 20 mg daily - ferrous gluconate 324 mg by mouth daily - Lasix 40 mg by mouth daily - Vascepa two capsules twice a day - melatonin 10 mg by mouth in the evening - metformin presently held, but takes 500 mg at night - metoprolol 50 mg daily - mirtazapine 45 mg by mouth at bedtime - multivitamin one daily - omeprazole 40 mg by mouth twice a day - Tylenol as needed SOCIAL HISTORY: No smoking, alcohol or drugs. FAMILY HISTORY: Patient denies family history of kidney problems. REVIEW OF SYSTEMS: CONSTITUTIONAL: Patient denies fevers, chills. EYES: She denies any visual changes or blurring. EARS, NOSE AND THROAT (ENT): She denies throat pain, dysphagia or rhinorrhea. CARDIOVASCULAR: She denies chest pain. She has a history of atrial fibrillation. PULMONARY: She reports shortness of breath with exertion. She is currently requiring oxygen. She does not require oxygen at home. GASTROINTESTINAL: Denies nausea, vomiting or diarrhea. GENITOURINARY: Denies dysuria or hematuria. MUSCULOSKELETAL: Reports generalized weakness. Denies leg swelling or history of gout. NEUROLOGIC: Denies seizures or syncope. HEMATOLOGIC: Reports anemia. Reports blood transfusion. Reports anticoagulant use. SKIN: Denies any new rashes or ulcers. PSYCHIATRIC: Has a history of depression. ENDOCRINE: Reports diabetes. Reports thyroid problems. The reminder of the review of systems is negative or as per history of present illness (HPI). PHYSICAL EXAMINATION: VITAL SIGNS: Temperature 97.0, pulse 60, respiratory rate 18, blood pressure 118/62, saturating 93% on 2 liter nasal cannula. INTAKE AND OUTPUT: Intake yesterday was not fully recorded. Urine output was just recorded as a total of 4 voids. Weight in the bed scale today 74.2 kg. GENERAL: Patient is seen sitting out of bed in the chair eating lunch, elderly female, awake, alert, oriented times three, interactive, conversational, good historian and in no distress. HEENT: Extraocular muscles are intact. Tongue is moist. Neck is supple. Nasal cannula is in place. Jugular veins were not elevated, but she was sitting upright at the time. HEART: Irregularly irregular. There is no significant leg edema. LUNGS: Diminished breath sounds with bibasilar crackles. There is no accessory muscle use. No tachypnea. ABDOMEN: Soft and nontender. EXTREMITIES: No clubbing or cyanosis. There is no significant leg edema. SKIN: Warm and dry. LABORATORY DATA: Sodium 143, potassium 3.9, bicarbonate 26, BUN 26, creatinine 1.4, magnesium 1.8. Transferrin saturation 49%. BNP 5900 on August 04, 2020 and 2300 yesterday. Blood cultures negative times two sets from August 04, 2020. Chest x-ray on August 04, 2020 showed congestive heart failure (CHF) pattern with bilateral pleural effusions. Repeat chest x-ray done today shows decreased pleural effusions, but ongoing increased pulmonary vasculature. INPATIENT MEDICATIONS: - Tylenol as needed. - Eliquis 5 mg by mouth twice a day - atorvastatin 40 mg daily - docusate 100 mg by mouth twice a day - Lexapro 20 mg daily - ferrous gluconate 324 mg by mouth daily - Lasix 40 mg by mouth daily - metoprolol XL 25 mg by mouth daily - mirtazapine 45 mg by mouth at bedtime - multivitamin one tablet daily - omeprazole 40 mg by mouth twice a day - MiraLax as needed - Senokot as needed. PROBLEMS: 1. Congestive heart failure, decompensated, most likely diastolic congestive heart failure. Echocardiogram from August 06, 2020 reviewed. Left ventricular ejection fraction of 70%, but diastolic function could not be determined in the setting of atrial fibrillation. She has pleural effusions and pulmonary vascular congestion. She is still requiring oxygen. I note her BNP has improved. I am increasing her Lasix to 40 mg by mouth twice a day. I do not think she needs aggressive diuresis with any intravenous (IV) diuretics. We will keep her on an oral regimen. She is already on a 1.8 liter fluid restriction, which is appropriate. Continue tracking daily weights. 2. Chronic kidney disease (CKD) stage III. Creatinine fluctuates from around 1.1 to 1.4. I would keep her off an angiotensin converting enzyme (ERIKA) or angiotensin receptor ester (ARB). I am increasing her oral diuretic, but there is no need for IV diuretic at this time. We will keep an eye on her renal function while she is in the rehabilitation unit. 3. Anemia. Patient was transfused 1 unit packed red blood cells recently. Her hemoglobin is still low at 8.7. Her iron stores are acceptable. I would transfuse again for hemoglobin less than 8.5. I feel that improving her anemia will help with her oxygenation and help her get off of nasal cannula as well. 4. Hypoalbuminemia. Encourage protein intake in the diet. 5. Atrial fibrillation. She is rate controlled with metoprolol and anticoagulated with Eliquis. Thank you for involving me in the care of Ms. Orozco. I will be happy to follow her along with you.
[2020-08-10 20:00] VITALS: BP 118/85
[2020-08-10] MEDS: SENNA 8.6 MG TAB (SENOKOT) PO SCH (20:54)
[2020-08-10] MEDS: MIRTAZAPINE 15 MG TAB PO SCH (20:54)
[2020-08-11 05:40] VITALS: BP 149/88
[2020-08-11 06:17] VITALS: BP 149/88
[2020-08-11 07:39] LABS: BASO # 0.1 10^3/uL (0.0-0.2); BASO % 1.1 % (0.0-1.0); EOS # 0.2 10^3/uL (0.0-0.5); HEMATOCRIT 33.9 % (36.0-47.0); HEMOGLOBIN 9.2 g/dl (12.0-15.5); LYMPH # 1.5 10^3/uL (1.5-5.0); MEAN CORPUSCULAR HEMOGLOBIN 20.9 pg (27.0-33.0); MEAN CORPUSCULAR HGB CONC 27.1 g/dl (32.0-36.5); MONO # 0.5 10^3/uL (0.0-0.8); MONO % 9.7 % (2.0-8.0); NEUTROPHILS % 56.6 % (36.0-66.0); PLATELET COUNT, AUTOMATED 278 10^3/uL (150-450); WHITE BLOOD COUNT 5.3 10^3/uL (4.0-10.0)
[2020-08-11 07:57] LABS: CALCIUM LEVEL 8.4 MG/DL (8.8-10.2); CREATININE FOR GFR 1.11 MG/DL (0.55-1.30); GLOMERULAR FILTRATION RATE 49.4 (>32); MAGNESIUM LEVEL 1.7 MG/DL (1.8-2.4); POTASSIUM SERUM 4.1 MEQ/L (3.5-5.1)
[2020-08-11] MEDS: OMEPRAZOLE 20 MG CAP PO SCH ×2 (08:26→20:39)
[2020-08-11] MEDS: MULTIVITAMINS/MINERALS THERAP 1 TAB PO SCH (08:26)
[2020-08-11] MEDS: ESCITALOPRAM OXALATE 10 MG TAB (LEXAPRO) PO SCH (08:26)
[2020-08-11] MEDS: FERROUS GLUCONATE 324 MG TAB PO SCH (08:26)
[2020-08-11] MEDS: ATORVASTATIN 20 MG TAB PO SCH (08:27)
[2020-08-11] MEDS: DOCUSATE SODIUM 100MG CAPSULE PO SCH ×2 (08:27→20:38)
[2020-08-11] MEDS: FUROSEMIDE 40 MG TAB PO SCH (08:27)
[2020-08-11] MEDS: APIXABAN 5 MG TAB (ELIQUIS) PO SCH ×2 (08:27→20:38)
[2020-08-11] MEDS: NYSTATIN 100,000 UNITS/GM TOPICAL PWD 15 GM TOP SCH ×2 (08:29→20:39)
[2020-08-11] MEDS: REMEDY PHYTOPLEX Z-GUARD PASTE 113GM TUBE (FROM STOREROOM PRODUCT) TOP SCH ×3 (08:29→20:39)
[2020-08-11] MEDS: METOPROLOL SUCC *XL* 25MG TAB (TopROL *XL*) PO SCH (08:30)
[2020-08-11 14:00] VITALS: BP 112/76
--- NOTE | 2020-08-11 16:48 | IPN ---
NEPHROLOGY PROGRESS NOTE DATE: 08/11/2020 SUBJECTIVE: Ms. Orozco is seen this morning on her bedside. She is laying in her bed with head end elevated and eating her lunch. She is feeling well and denies any new complaints. PHYSICAL EXAMINATION: Temperature 97.4 degrees Fahrenheit, heart rate 88 per minute, respiratory rate 18 per minute, blood pressure 116/76 mmHg, oxygen saturation 93% on room air. HEAD: Atraumatic. NECK: Supple and jugular venous distention (JVD) is difficult to be assessed. HEART SOUNDS: Irregular in rhythm. LUNGS: With a few basilar rales. ABDOMEN: Soft and nontender. Bowel sounds are normal. EXTREMITIES: Without any cyanosis or clubbing. NEUROLOGIC: She is awake, alert and oriented times three. LABORATORY DATA: Today's labs show hemoglobin 9.2, hematocrit 33.9. Sodium 142, potassium 4.2, BUN 22, creatinine 1.1, calcium level 8.4, magnesium 1.7. PROBLEMS: 1. Acute on chronic congestive heart failure. Volume status seems clinically well-compensated. She is currently on her chronic dose of diuretic with furosemide 40 mg daily. 2. Acute kidney injury superimposed on chronic kidney disease. Kidney function has also improved and is stable at present. Her renal function will be monitored closely. 3. Anemia. She did have slight improvement in her anemia without any transfusion over the last couple of days. We will continue to monitor her closely. She should continue with her oral iron supplement.
[2020-08-11 20:00] VITALS: BP 145/72
[2020-08-11] MEDS: SENNA 8.6 MG TAB (SENOKOT) PO SCH (20:38)
[2020-08-11] MEDS: MIRTAZAPINE 15 MG TAB PO SCH (20:39)
[2020-08-12 06:00] VITALS: BP 157/91
--- NOTE | 2020-08-12 08:45 | IPNPDOC ---
PM&R Progress Note DATE OF SERVICE: Aug 12, 2020 [employer] Progress Note Subjective: Patient reporting she feels stronger. SHe reports she has a dry throat and some sinus congestion but does not want flonase or saline drop. She denies cough, fevers, chills. REVIEW OF SYSTEMS: The following is a completed review of systems and has been reviewed. Review of systems otherwise unremarkable. PAIN: Patient self reports no pain EYES: No recent vision changes EARS, NOSE, & THROAT: No throat pain, or dysphagia, or rhinorrhea CARDIOVASCULAR: Denies chest pain or palpitations PULMONARY: Denies shortness of breath except on exertion (improving) GASTROINTESTINAL: Denies constipation/diarrhea GENITOURINARY: denies dysuria. MUSCULOSKELETAL: +generalized weakness NEUROLOGICAL:denies paresthesias HEMATOLOGICAL: denies easy bruising, +anemia SKIN: denies rash PSYCHIATRIC: Unremarkable All other review of systems found to be negative. PHYSICAL EXAMINATION: VITAL SIGNS: Please see below GENERAL: Pleasant and cooperative. No acute distress. HEENT: PERRL. Extraocular movements intact. Clear conjunctiva CARDIOVASCULAR: Regular rate and rhythm. No murmurs, rubs, or gallops LUNGS: Clear to auscultation bilaterally. No wheezes. No rhonchi ABDOMEN: Soft, nontender, nondistended. Positive bowel sounds. Normal active bowel sounds. NEUROLOGICAL: Alert and oriented times three. Cranial nerves II through XII grossly intact. Sensation grossly intact EXTREMITIES: 5\5 strength bilateral upper extremities. 5\5 strength right lower extremity. 5/5 strength in left lower extremity. ASSESSMENT:89-year-old F with past medical history of Afib, CAD, DM who presents status post new dx of CHF with exacerbation and weakness, requiring supplemental 02. PLAN: 1. Rehab- PT/OT advance moblity and ADLs, strengthen/stretch/maintain ROM all 4 limbs 2. Cardiac- new dx of chronic CHF, likely diastolic with recent ECHO showing preserved EF- c/u daily weights, fluid restrict, lasix -Afib on beta-ester and eliquis -HTN c/u BP meds -HLD c/u statin -medicine consulted to assist in overall management 3. Resp- monitor for infection, s/p treatment for recent CAP -currently on 02, c/u wean while on ARU 4. Endo- hx of DM, patient refusing ISS and metformin contra-indicated with current renal function, will order FS BID with hypoglycemic protocol in place, may need alternative oral agent prior to d/c will monitor 5. GI ppx- prilosec 6. renal- CKD with recent NIKI, renal consulted to follow along and help with fluid management in setting of CHF- recs appreciated 7. DVT ppx- on eliquis 8. Pain- tylenol 9. Psych- hx of depression/anxiety- lexapro 10. Dispo- TBD Allergies Coded Allergies: Penicillins (Verified Allergy, Intermediate, RASH, 07/02/20) Sulfa (Sulfonamide Antibiotics) (Verified Allergy, Unknown, 07/19/18) lactose (Verified Adverse Reaction, Mild, diarrhea, 07/19/18) Vital Signs Vital Signs Date Time Temp Pulse Resp B/P (MAP) Pulse Ox O2 Delivery O2 Flow Rate FiO2 08/12/20 06:00 98.7 91 18 157/91 (113) 90 Room Air 08/10/20 21:25 0.0 Laboratory Data Labs 24H Laboratory Tests 2 08/11/20 16:41: Bedside Glucose (Misc Panel) 145H 08/12/20 05:48: Bedside Glucose (Misc Panel) 116H 08/12/20 07:00: Magnesium Level 1.6L Current Medications Current Medications Current Medications Medications (Trade) Dose Ordered Sig/Ashly Route PRN Reason Start Time Stop Time Status Last Admin Dose Admin Acetaminophen (Tylenol Tab) 650 mg Q4HP PRN PO fever/MILD PAIN (PS 1-4) 08/07/20 13:55 Apixaban (Eliquis) 5 mg BID PO 08/07/20 21:00 08/11/20 20:38 Atorvastatin Calcium (Lipitor) 40 mg DAILY PO 08/08/20 09:00 08/11/20 08:27 Bisacodyl (Dulcolax Suppository) 10 mg DAILYPRN PRN DC CONSTIPATION 08/07/20 13:55 Dextrose (Dextrose 50%) 25 ml ASDIRECTED PRN IV SEE LABEL COMMENTS 08/07/20 13:55 Docusate Sodium (Colace) 100 mg BID PO 08/07/20 21:00 08/11/20 20:38 Escitalopram Oxalate (Lexapro) 20 mg DAILY PO 08/08/20 09:00 08/11/20 08:26 Ferrous Gluconate (Fergon) 324 mg DAILY PO 08/08/20 09:00 08/11/20 08:26 Furosemide (Lasix) 40 mg BID PO 08/08/20 21:00 08/09/20 18:25 DC 08/08/20 20:37 Furosemide (Lasix) 40 mg DAILY PO 08/08/20 09:00 08/08/20 15:56 DC 08/08/20 08:43 Furosemide (Lasix) 40 mg DAILY PO 08/10/20 09:00 08/11/20 08:27 Glucagon (Glucagon) 1 mg ASDIRECTED PRN SC SEE LABEL COMMENTS 08/07/20 13:55 Glucose (Glucose) 16 GM ASDIRECTED PRN PO SEE LABEL COMMENTS 08/07/20 13:55 Insulin Human Lispro (HumaLOG INSULIN) SEE PROTOCOL TABLE AC SC 08/07/20 17:30 Cancel Insulin Human Lispro (HumaLOG INSULIN) SEE PROTOCOL TABLE QHS SC 08/07/20 21:00 Cancel Magnesium Oxide (Mag-Ox) 400 mg BID PO 08/12/20 09:00 Metformin HCl (Glucophage) 500 mg DAILY@18 PO 08/07/20 18:00 08/07/20 18:34 DC Metoprolol Succinate (TopROL XL) 25 mg DAILY PO 08/09/20 09:00 08/11/20 08:30 Metoprolol Succinate (TopROL XL) 50 mg DAILY PO 08/08/20 09:00 08/09/20 08:55 DC 08/08/20 08:43 Mirtazapine (Remeron) 45 mg QHS PO 08/07/20 21:00 08/11/20 20:39 Multivitamins (Theragram-M) 1 tab DAILY PO 08/08/20 09:00 08/11/20 08:26 Nystatin (Mycostatin Powder, Nystop) groin BID TOP 08/07/20 21:00 08/11/20 20:39 Omeprazole (PriLOSEC) 40 mg BID PO 08/07/20 21:00 08/11/20 20:39 Polyethylene Glycol (Miralax) 1 pkt DAILY PRN PO CONSTIPATION 08/07/20 13:55 Senna (Senokot) 1 tab QHS PO 08/07/20 21:00 08/11/20 20:38 TAYLOR RODRIGUEZ MD Aug 12, 2020 08:45
[2020-08-12] MEDS: DOCUSATE SODIUM 100MG CAPSULE PO SCH ×2 (09:20→20:23)
[2020-08-12] MEDS: MULTIVITAMINS/MINERALS THERAP 1 TAB PO SCH (09:20)
[2020-08-12] MEDS: APIXABAN 5 MG TAB (ELIQUIS) PO SCH ×2 (09:20→20:26)
[2020-08-12] MEDS: FERROUS GLUCONATE 324 MG TAB PO SCH (09:20)
[2020-08-12] MEDS: MAGNESIUM OXIDE 400MG TAB (MAG-OX) PO SCH ×2 (09:20→20:23)
[2020-08-12] MEDS: ESCITALOPRAM OXALATE 10 MG TAB (LEXAPRO) PO SCH (09:21)
[2020-08-12] MEDS: OMEPRAZOLE 20 MG CAP PO SCH ×2 (09:21→20:23)
[2020-08-12] MEDS: ATORVASTATIN 20 MG TAB PO SCH (09:21)
[2020-08-12] MEDS: FUROSEMIDE 40 MG TAB PO SCH (09:21)
[2020-08-12] MEDS: NYSTATIN 100,000 UNITS/GM TOPICAL PWD 15 GM TOP SCH ×2 (09:22→20:24)
[2020-08-12] MEDS: REMEDY PHYTOPLEX Z-GUARD PASTE 113GM TUBE (FROM STOREROOM PRODUCT) TOP SCH ×3 (09:22→20:25)
[2020-08-12] MEDS: METOPROLOL SUCC *XL* 25MG TAB (TopROL *XL*) PO SCH (09:22)
--- NOTE | 2020-08-12 12:33 | IPNPDOC ---
Date Seen The patient was seen on 08/12/20. Progress Note SUBJECTIVE: No acute complaints overnight. Magnesium supplement started BID. Denies chest pain, n/v/d, shortness of breath. OBJECTIVE PHYSICAL EXAMINATION: VITAL SIGNS: please see below GENERAL APPEARANCE: Elderly, in NAD HEENT: NCAT, EOMI, MMM, anicteric CARDIOVASCULAR: Loud pansystolic murmur heard throughout the precordium, irregularly irregular LUNGS: Bibasilar posterior crackles, no wheezing, no rhonchi ABDOMEN: normoactive sounds, soft, NTND EXTREMITIES: WWP, no pitting edema, 2+ DP pulses NEUROLOGICAL: CN2-12 intact, AOx3, STRENGTH 5/5 in all extremities PSYCHIATRIC: AOx3 LABORATORY DATA: Please see below MICROBIOLOGY: Please see below. ASSESSMENT: 89 yo W with a history of HTN, HLD, NIDDM2, CAD, history of angina, GERD, SILVIA, depression and anxiety who was brought in by her daughter for noted worsening dyspnea especially with exertion with declining exercise tolerance who is now admitted for NIKI, symptomatic anemia and workup of her MARTINEZ and functional decline. Plan: Dyspnea on exertion likely multifactorial 2/2 SILVIA, possible CHF vs. valvulopathy given moderate -Plan as noted below for each of these problems -PT/OT SILVIA -H/H 08/11/20 stable, improved -FOBT was negative -B12 and folate are wnl -continue ferrous gluconate daily, with bowel regimen -CBC regularly HFpEF -No prior history of, but has a history of CAD and Afib and has a murmur -Elevated BNP with crackles on exam and CXR with cephalization -40mg PO lasix QD, BB. ACEi and amlodipine held -TTE showed HFpEF with moderate -monitor strict I/Os, 2 gm sodium diet, 1800 FR, daily weights -daily BMP and Mag Hypomagnesemia -Started on BID mag ox -F/u repeat labs Chronic Afib -Rat controlled -continue home toprol, eliquis 5 BID -telemetry NIKI: I suspect it is congestive and has ongoing diuresis- resolved -Cr wnl -lasix 40mg PO daily , holding ACEi for now , metformin -renal US was without evidence of obstruction -UA was bland DM: -holding home metformin -SSI AC/HS -FSBG AC/HS -hypoglycemia protocol Depression: -continue mirtazapine and escitalopram GERD: -continue home omeprazole HLD: -continue home lipitor DVT ppx: on eliquis VS, I&O, 24H, Fishbone Vital Signs/I&O Vital Signs Date Time Temp Pulse Resp B/P (MAP) Pulse Ox O2 Delivery O2 Flow Rate FiO2 08/12/20 09:22 80 148/76 08/12/20 06:00 98.7 18 90 Room Air 08/10/20 21:25 0.0 I&O- Last 24 Hours up to 6 AM 08/12/20 06:00 Intake Total 580 ml Balance 580 ml Laboratory Data 24H LABS Laboratory Tests 2 08/11/20 16:41: Bedside Glucose (Misc Panel) 145H 08/12/20 05:48: Bedside Glucose (Misc Panel) 116H 08/12/20 07:00: Magnesium Level 1.6L Dulce Arnold MD Aug 12, 2020 12:33
[2020-08-12 14:00] VITALS: BP 112/66
--- NOTE | 2020-08-12 17:44 | IPN ---
NEPHROLOGY PROGRESS NOTE DATE: 08/12/2020 SUBJECTIVE: Mrs. Orozco is seen this morning at her bedside. She is sitting in the chair at the time of my visit. She reports feeling and denies any dyspnea, chest pain, or leg edema. She has no nausea or vomiting. She denies any fevers or chills. OBJECTIVE: PHYSICAL EXAMINATION: VITAL SIGNS: Temperature is 98.7 degrees Fahrenheit, heart rate 80 per minute, respiratory rate 18 per minute, blood pressure 148/76 mm of mercury and oxygen saturation is 96% on room air. HEENT: Head is atraumatic. NECK: Supple and without JVD or thyroid enlargement. HEART: Irregular in rhythm. LUNGS: Clear to auscultation bilaterally. ABDOMEN: Soft and nontender and bowel sounds are normal. EXTREMITIES: Without any cyanosis or clubbing. She has known peripheral edema. LABORATORY STUDIES: The patient did not have any new labs done today. PROBLEMS: 1. Congestive heart failure volume status is very well compensated clinically and she remains on Furosemide 40 mg daily. 2. [id number]-fy-[id number] kidney disease her kidney function has improved and creatinine has been now between 1.0 and 1.1. Renal profile will be checked again tomorrow. 3. Hypomagnesemia she did improve after receiving an intravenous dose of magnesium sulfate. Now her magnesium level is drifting down again. She is currently on oral magnesium oxide 400 mg twice daily. Her magnesium level will be checked again tomorrow. If she continues to go down, then we will consider giving her another dose of intravenous magnesium sulfate. 4. Hypertension - blood pressure seems to be simply well controlled on current antihypertensive medications. 5. Anemia her anemia is gradually improving and she remains on oral iron supplements.
[2020-08-12 20:00] VITALS: BP 131/72
[2020-08-12] MEDS: MIRTAZAPINE 15 MG TAB PO SCH (20:23)
[2020-08-12] MEDS: PREPARATION H SUPP (HEMORRHOID) PR SCH (20:23)
[2020-08-12] MEDS: SENNA 8.6 MG TAB (SENOKOT) PO SCH (20:26)
[2020-08-13 06:00] VITALS: BP 162/68
[2020-08-13] MEDS: METOPROLOL SUCC *XL* 25MG TAB (TopROL *XL*) PO SCH (07:39)
[2020-08-13] MEDS: FUROSEMIDE 40 MG TAB PO SCH (07:40)
[2020-08-13] MEDS: FERROUS GLUCONATE 324 MG TAB PO SCH (07:40)
[2020-08-13] MEDS: ATORVASTATIN 20 MG TAB PO SCH (07:40)
[2020-08-13] MEDS: APIXABAN 5 MG TAB (ELIQUIS) PO SCH ×2 (07:40→21:21)
[2020-08-13] MEDS: ESCITALOPRAM OXALATE 10 MG TAB (LEXAPRO) PO SCH (07:40)
[2020-08-13] MEDS: OMEPRAZOLE 20 MG CAP PO SCH ×2 (07:40→21:21)
[2020-08-13] MEDS: MAGNESIUM OXIDE 400MG TAB (MAG-OX) PO SCH ×2 (07:40→21:21)
[2020-08-13] MEDS: DOCUSATE SODIUM 100MG CAPSULE PO SCH ×2 (07:40→21:21)
[2020-08-13] MEDS: MULTIVITAMINS/MINERALS THERAP 1 TAB PO SCH (07:40)
[2020-08-13] MEDS: PREPARATION H SUPP (HEMORRHOID) PR SCH ×2 (07:41→21:22)
[2020-08-13] MEDS: REMEDY PHYTOPLEX Z-GUARD PASTE 113GM TUBE (FROM STOREROOM PRODUCT) TOP SCH ×3 (07:41→21:23)
[2020-08-13] MEDS: NYSTATIN 100,000 UNITS/GM TOPICAL PWD 15 GM TOP SCH ×2 (07:41→21:22)
[2020-08-13 07:48] LABS: BASO # 0.1 10^3/uL (0.0-0.2); BASO % 1.5 % (0.0-1.0); EOS # 0.2 10^3/uL (0.0-0.5); HEMATOCRIT 33.5 % (36.0-47.0); HEMOGLOBIN 9.2 g/dl (12.0-15.5); LYMPH # 1.3 10^3/uL (1.5-5.0); LYMPH % 22.2 % (24.0-44.0); MEAN CORPUSCULAR HGB CONC 27.5 g/dl (32.0-36.5); MEAN CORPUSCULAR VOLUME 76.5 fl (80.0-96.0); MONO # 0.6 10^3/uL (0.0-0.8); MONO % 9.2 % (2.0-8.0); NEUTROPHILS # 3.8 10^3/uL (1.5-8.5); NEUTROPHILS % 63.6 % (36.0-66.0); PLATELET COUNT, AUTOMATED 258 10^3/uL (150-450); RED BLOOD COUNT 4.38 10^6/uL (4.00-5.40)
[2020-08-13 08:04] LABS: CALCIUM LEVEL 8.2 MG/DL (8.8-10.2); CREATININE FOR GFR 1.16 MG/DL (0.55-1.30); GLOMERULAR FILTRATION RATE 46.9 (>32); MAGNESIUM LEVEL 1.5 MG/DL (1.8-2.4); POTASSIUM SERUM 3.8 MEQ/L (3.5-5.1)
[2020-08-13] MEDS ORDERED: MAG SULF 1GM/100ML (MAG RUN) 1 GM in IV 1 EA IV ONE (08:30)
--- NOTE | 2020-08-13 09:16 | IPNPDOC ---
PM&R Progress Note DATE OF SERVICE: Aug 13, 2020 Tax Clerk Progress Note Subjective: Patient reporting she is in good spirits and agrees she will likely need to go to assisted living soon where she will be looked after. She denies fevers, ch ill, or decline in function. REVIEW OF SYSTEMS: The following is a completed review of systems and has been reviewed. Review of systems otherwise unremarkable. PAIN: Patient self reports no pain EYES: No recent vision changes EARS, NOSE, & THROAT: No throat pain, or dysphagia, or rhinorrhea CARDIOVASCULAR: Denies chest pain or palpitations PULMONARY: Denies shortness of breath except on exertion (improving) GASTROINTESTINAL: Denies constipation/diarrhea GENITOURINARY: denies dysuria. MUSCULOSKELETAL: +generalized weakness NEUROLOGICAL:denies paresthesias HEMATOLOGICAL: denies easy bruising, +anemia SKIN: denies rash PSYCHIATRIC: Unremarkable All other review of systems found to be negative. PHYSICAL EXAMINATION: VITAL SIGNS: Please see below GENERAL: Pleasant and cooperative. No acute distress. HEENT: PERRL. Extraocular movements intact. Clear conjunctiva CARDIOVASCULAR: Regular rate and rhythm. No murmurs, rubs, or gallops LUNGS: Clear to auscultation bilaterally. No wheezes. No rhonchi ABDOMEN: Soft, nontender, nondistended. Positive bowel sounds. Normal active bowel sounds. NEUROLOGICAL: Alert and oriented times three. Cranial nerves II through XII grossly intact. Sensation grossly intact EXTREMITIES: 5\5 strength bilateral upper extremities. 5\5 strength right lower extremity. 5/5 strength in left lower extremity. ASSESSMENT:89-year-old F with past medical history of Afib, CAD, DM who presents status post new dx of CHF with exacerbation and weakness, requiring supplemental 02. PLAN: 1. Rehab- PT/OT advance mobility and ADLs, strengthen/stretch/maintain ROM all 4 limbs- ambulating with RW 2. Cardiac- new dx of chronic CHF, likely diastolic with recent ECHO showing preserved EF- c/u daily weights, fluid restrict, lasix -Afib on beta-ester and eliquis -HTN c/u BP meds -HLD c/u statin -medicine consulted to assist in overall management 3. Resp- monitor for infection, s/p treatment for recent CAP -currently on 02, c/u wean while on ARU 4. Endo- hx of DM, patient refusing ISS and metformin contra-indicated with current renal function, c/u FS BID with hypoglycemic protocol in place, may need alternative oral agent prior to d/c will monitor 5. GI ppx- prilosec 6. renal- CKD with recent NIKI, renal consulted to follow along and help with fluid management in setting of CHF- recs appreciated 7. DVT ppx- on eliquis 8. Pain- tylenol 9. Psych- hx of depression/anxiety- lexapro 10. Hypomagnesemia- c/u to replete prn 11. Dispo- goal to home or assisted living 08-19-20 Allergies Coded Allergies: Penicillins (Verified Allergy, Intermediate, RASH, 07/02/20) Sulfa (Sulfonamide Antibiotics) (Verified Allergy, Unknown, 07/19/18) lactose (Verified Adverse Reaction, Mild, diarrhea, 07/19/18) Vital Signs Vital Signs Date Time Temp Pulse Resp B/P (MAP) Pulse Ox O2 Delivery O2 Flow Rate FiO2 08/13/20 07:39 86 162/68 08/13/20 06:00 97.2 16 95 Room Air 08/10/20 21:25 0.0 Laboratory Data CBC/BMP Laboratory Tests 08/13/20 07:34 Labs 24H Laboratory Tests 2 08/12/20 16:29: Bedside Glucose (Misc Panel) 142H 08/13/20 05:44: Bedside Glucose (Misc Panel) 129H 08/13/20 07:34: Immature Granulocyte % (Auto) 0.5, Neutrophils (%) (Auto) 63.6, Lymphocytes (%) (Auto) 22.2L, Monocytes (%) (Auto) 9.2H, Eosinophils (%) (Auto) 3.0, Basophils (%) (Auto) 1.5H, Neutrophils # (Auto) 3.8, Lymphocytes # (Auto) 1.3L, Monocytes # (Auto) 0.6, Eosinophils # (Auto) 0.2, Basophils # (Auto) 0.1, Nucleated Red Blood Cells % (auto) 0.0, Anion Gap 9, Glomerular Filtration Rate 46.9, Calcium Level 8.2L, Magnesium Level 1.5L Current Medications Current Medications Current Medications Medications (Trade) Dose Ordered Sig/Ashly Route PRN Reason Start Time Stop Time Status Last Admin Dose Admin Acetaminophen (Tylenol Tab) 650 mg Q4HP PRN PO fever/MILD PAIN (PS 1-4) 08/07/20 13:55 Apixaban (Eliquis) 5 mg BID PO 08/07/20 21:00 08/13/20 07:40 Atorvastatin Calcium (Lipitor) 40 mg DAILY PO 08/08/20 09:00 08/13/20 07:40 Bisacodyl (Dulcolax Suppository) 10 mg DAILYPRN PRN [place] CONSTIPATION 08/07/20 13:55 Dextrose (Dextrose 50%) 25 ml ASDIRECTED PRN IV SEE LABEL COMMENTS 08/07/20 13:55 Docusate Sodium (Colace) 100 mg BID PO 08/07/20 21:00 08/13/20 07:40 Escitalopram Oxalate (Lexapro) 20 mg DAILY PO 08/08/20 09:00 08/13/20 07:40 Ferrous Gluconate (Fergon) 324 mg DAILY PO 08/08/20 09:00 08/13/20 07:40 Furosemide (Lasix) 40 mg BID PO 08/08/20 21:00 08/09/20 18:25 DC 08/08/20 20:37 Furosemide (Lasix) 40 mg DAILY PO 08/08/20 09:00 08/08/20 15:56 DC 08/08/20 08:43 Furosemide (Lasix) 40 mg DAILY PO 08/10/20 09:00 08/13/20 07:40 Glucagon (Glucagon) 1 mg ASDIRECTED PRN SC SEE LABEL COMMENTS 08/07/20 13:55 Glucose (Glucose) 16 GM ASDIRECTED PRN PO SEE LABEL COMMENTS 08/07/20 13:55 Insulin Human Lispro (HumaLOG INSULIN) SEE PROTOCOL TABLE AC SC 08/07/20 17:30 Cancel Insulin Human Lispro (HumaLOG INSULIN) SEE PROTOCOL TABLE QHS SC 08/07/20 21:00 Cancel Magnesium Oxide (Mag-Ox) 400 mg BID PO 08/12/20 09:00 08/13/20 07:40 Metformin HCl (Glucophage) 500 mg DAILY@18 PO 08/07/20 18:00 08/07/20 18:34 DC Metoprolol Succinate (TopROL XL) 25 mg DAILY PO 08/09/20 09:00 08/13/20 07:39 Metoprolol Succinate (TopROL XL) 50 mg DAILY PO 08/08/20 09:00 08/09/20 08:55 DC 08/08/20 08:43 Mirtazapine (Remeron) 45 mg QHS PO 08/07/20 21:00 08/12/20 20:23 Multivitamins (Theragram-M) 1 tab DAILY PO 08/08/20 09:00 08/13/20 07:40 Nystatin (Mycostatin Powder, Nystop) groin BID TOP 08/07/20 21:00 08/13/20 07:41 Omeprazole (PriLOSEC) 40 mg BID PO 08/07/20 21:00 08/13/20 07:40 Phenylephrine HCl (Preparation H Supp) 1 sup BID [place] 08/12/20 21:00 08/13/20 07:41 Polyethylene Glycol (Miralax) 1 pkt DAILY PRN PO CONSTIPATION 08/07/20 13:55 Senna (Senokot) 1 tab QHS PO 08/07/20 21:00 08/12/20 20:26 TAYLOR RODRIGUEZ MD Aug 13, 2020 09:16
[2020-08-13 14:00] VITALS: BP 170/75
--- NOTE | 2020-08-13 16:44 | IPN ---
NEPHROLOGY PROGRESS NOTE DATE: 08/13/2020 SUBJECTIVE: Mrs. Orozco was seen this morning at her bedside. She is currently in a wheelchair ready to go outside for a brief visit. She is feeling well and denies any dyspnea, chest pain, nausea, vomiting, fever or chills. PHYSICAL EXAMINATION: Temperature 97.2 degrees Fahrenheit, heart rate 86 per minute and respiratory rate 16 per minute. Blood pressure 162/68 mmHg and oxygen saturation 95% on room air. Head: Atraumatic. Neck: Supple and without JVD or thyroid enlargement. Heart: Sounds are irregular in rhythm. Lungs: Clear to auscultation. Abdomen: Soft and nontender and bowel sounds are normal. Extremities: Without any cyanosis or clubbing. Neurologically: She is at her baseline mentation without any focal deficit. LABORATORY DATA: Today's labs show WBC count 6, hemoglobin 9.2, hematocrit 33.5 and platelets 258. Sodium 142, potassium 3.8, BUN 20, creatinine 1.16, glucose 168, calcium 8.2. Magnesium level is down to 1.5. PROBLEMS/PLAN: 1. Congestive heart failure: Volume status seems very well compensated and she has no clinical evidence of hypovolemia at present. She remains on 40 mg furosemide once a day. 2. Acute on chronic kidney disease: Kidney function is stable at this point and no changes are being made today. 3. Hypomagnesemia: Her magnesium level has drifted down to 1.5 once again. She has been receiving oral magnesium oxide 400 mg twice a day and probably it is not enough. I am going to give her 1 dose of magnesium sulfate 1 gram intravenously. She will continue with oral supplement. 4. Anemia: At present her anemia is stable and likely to improve over a period of time. She is going to continue with oral iron supplement.
[2020-08-13] MEDS: SENNA 8.6 MG TAB (SENOKOT) PO SCH (21:21)
[2020-08-13] MEDS: MIRTAZAPINE 15 MG TAB PO SCH (21:21)
[2020-08-13 22:12] VITALS: BP 160/84
[2020-08-14 06:00] VITALS: BP 156/80
[2020-08-14] MEDS: FERROUS GLUCONATE 324 MG TAB PO SCH (08:41)
[2020-08-14] MEDS: PREPARATION H SUPP (HEMORRHOID) PR SCH ×2 (08:41→21:38)
[2020-08-14] MEDS: MAGNESIUM OXIDE 400MG TAB (MAG-OX) PO SCH ×2 (08:41→21:37)
[2020-08-14] MEDS: APIXABAN 5 MG TAB (ELIQUIS) PO SCH ×2 (08:41→21:38)
[2020-08-14] MEDS: ATORVASTATIN 20 MG TAB PO SCH (08:42)
[2020-08-14] MEDS: ESCITALOPRAM OXALATE 10 MG TAB (LEXAPRO) PO SCH (08:42)
[2020-08-14] MEDS: OMEPRAZOLE 20 MG CAP PO SCH ×2 (08:42→21:38)
[2020-08-14] MEDS: MULTIVITAMINS/MINERALS THERAP 1 TAB PO SCH (08:42)
[2020-08-14] MEDS: DOCUSATE SODIUM 100MG CAPSULE PO SCH ×2 (08:42→21:00)
[2020-08-14] MEDS: METOPROLOL SUCC *XL* 25MG TAB (TopROL *XL*) PO SCH (08:42)
[2020-08-14] MEDS: NYSTATIN 100,000 UNITS/GM TOPICAL PWD 15 GM TOP SCH ×2 (08:45→21:39)
[2020-08-14] MEDS: REMEDY PHYTOPLEX Z-GUARD PASTE 113GM TUBE (FROM STOREROOM PRODUCT) TOP SCH ×3 (08:45→21:39)
[2020-08-14] MEDS: FUROSEMIDE 40 MG TAB PO SCH (08:53)
[2020-08-14] MEDS ORDERED: METOPROLOL SUCC *XL* 25MG TAB (TopROL *XL*) PO ONE (09:30)
--- NOTE | 2020-08-14 12:20 | IPN ---
PROGRESS NOTE DATE: 08/14/2020 SUBJECTIVE: Mrs. Orozco is seen this morning on her bedside. She is laying in bed without any acute distress. She denies any nausea, vomiting, dyspnea, chest pain, fever or chills. OBJECTIVE: VITAL SIGNS: Temperature is 98 degrees Fahrenheit, heart rate is 90 per minute and respiratory rate is 18 per minute. Blood pressure 140/80 mmHg and oxygen saturation is between 90 and 97% on room air. HEAD AND NECK: Head is atraumatic. Neck is supple and without JVD or thyroid enlargement. HEART: Heart sounds are irregular in rhythm. LUNGS: Clear to auscultation bilaterally. ABDOMEN: Soft and nontender. Bowel sounds are normal. EXTREMITIES: Without any cyanosis or clubbing. NEUROLOGIC: She is awake, alert and at her baseline mentation. LABORATORY DATA: She did not have any new labs done today. Yesterday, her BUN was 20 and creatinine 1.16 with a GFR of 47 ml. Her magnesium level was 1.5. PROBLEMS: 1. Congestive heart failure, volume status is well compensated at present and she remains on daily dose of furosemide 40 mg daily. 2. Acute kidney injury superimposed on chronic kidney disease. For the last few days, the kidney function has been stable with serum creatinine between 1.0 and 1.16. Renal profile will be checked again tomorrow. 3. Hypomagnesemia. She was given magnesium sulfate 1 gram intravenously yesterday and she continues with oral magnesium oxide 400 mg b.i.d. Will recheck her magnesium level tomorrow. 4. Anemia, her anemia is stable and she remains on iron supplement which will be continued for a while at least. She has no acute blood loss.
--- NOTE | 2020-08-14 12:21 | IPNPDOC ---
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 She feels well overall and is enjoying therapy. She thinks assisted living is the best option for her and is happy her family is supporting her. REVIEW OF SYSTEMS: The following is a completed review of systems and has been reviewed. Review of systems otherwise unremarkable. PAIN: Patient self reports no pain EYES: No recent vision changes EARS, NOSE, & THROAT: No throat pain, or dysphagia, or rhinorrhea CARDIOVASCULAR: Denies chest pain or palpitations PULMONARY: Denies shortness of breath except on exertion (improving) GASTROINTESTINAL: Denies constipation/diarrhea GENITOURINARY: denies dysuria. MUSCULOSKELETAL: +generalized weakness NEUROLOGICAL:denies paresthesias HEMATOLOGICAL: denies easy bruising, +anemia SKIN: denies rash PSYCHIATRIC: Unremarkable All other review of systems found to be negative. PHYSICAL EXAMINATION: VITAL SIGNS: Please see below GENERAL: Pleasant and cooperative. No acute distress. HEENT: PERRL. Extraocular movements intact. Clear conjunctiva CARDIOVASCULAR: Regular rate and rhythm. No murmurs, rubs, or gallops LUNGS: Clear to auscultation bilaterally. No wheezes. No rhonchi ABDOMEN: Soft, nontender, nondistended. Positive bowel sounds. Normal active bowel sounds. NEUROLOGICAL: Alert and oriented times three. Cranial nerves II through XII grossly intact. Sensation grossly intact EXTREMITIES: 5\5 strength bilateral upper extremities. 5\5 strength right lower extremity. 5/5 strength in left lower extremity. ASSESSMENT:89-year-old F with past medical history of Afib, CAD, DM who presents status post new dx of CHF with exacerbation and weakness, requiring supplemental 02. PLAN: 1. Rehab- PT/OT advance mobility and ADLs, strengthen/stretch/maintain ROM all 4 limbs- ambulating with RW 2. Cardiac- new dx of chronic CHF, likely diastolic with recent ECHO showing preserved EF- c/u daily weights, fluid restrict, lasix -Afib on beta-ester and eliquis -HTN c/u BP meds- will increase metoprolol succinate to 50mg daily as BPs a little elevated -HLD c/u statin -medicine consulted to assist in overall management 3. Resp- monitor for infection, s/p treatment for recent CAP -currently on 02, c/u wean while on ARU 4. Endo- hx of DM, patient refusing ISS and metformin contra-indicated with current renal function, c/u FS BID with hypoglycemic protocol in place, may need alternative oral agent prior to d/c will monitor 5. GI ppx- prilosec 6. renal- CKD with recent NIKI, renal consulted to follow along and help with fluid management in setting of CHF- recs appreciated 7. DVT ppx- on eliquis 8. Pain- tylenol 9. Psych- hx of depression/anxiety- lexapro 10. Hypomagnesemia- c/u to replete prn 11. Dispo- goal to home or assisted living 08-19-20 Allergies Coded Allergies: Penicillins (Verified Allergy, Intermediate, RASH, 07/02/20) Sulfa (Sulfonamide Antibiotics) (Verified Allergy, Unknown, 07/19/18) lactose (Verified Adverse Reaction, Mild, diarrhea, 07/19/18) Vital Signs Vital Signs Date Time Temp Pulse Resp B/P (MAP) Pulse Ox O2 Delivery O2 Flow Rate FiO2 08/14/20 10:19 88 140/80 08/14/20 06:00 98.1 18 90 Room Air 08/10/20 21:25 0.0 Laboratory Data Labs 24H Laboratory Tests 2 08/13/20 16:34: Bedside Glucose (Misc Panel) 126H 08/14/20 06:17: Bedside Glucose (Misc Panel) 128H Current Medications Current Medications Current Medications Medications (Trade) Dose Ordered Sig/Ashly Route PRN Reason Start Time Stop Time Status Last Admin Dose Admin Acetaminophen (Tylenol Tab) 650 mg Q4HP PRN PO fever/MILD PAIN (PS 1-4) 08/07/20 13:55 Apixaban (Eliquis) 5 mg BID PO 08/07/20 21:00 08/14/20 08:41 Atorvastatin Calcium (Lipitor) 40 mg DAILY PO 08/08/20 09:00 08/14/20 08:42 Bisacodyl (Dulcolax Suppository) 10 mg DAILYPRN PRN [place] CONSTIPATION 08/07/20 13:55 Dextrose (Dextrose 50%) 25 ml ASDIRECTED PRN IV SEE LABEL COMMENTS 08/07/20 13:55 Docusate Sodium (Colace) 100 mg BID PO 08/07/20 21:00 08/14/20 08:42 Escitalopram Oxalate (Lexapro) 20 mg DAILY PO 08/08/20 09:00 08/14/20 08:42 Ferrous Gluconate (Fergon) 324 mg DAILY PO 08/08/20 09:00 08/14/20 08:41 Furosemide (Lasix) 40 mg BID PO 08/08/20 21:00 08/09/20 18:25 DC 08/08/20 20:37 Furosemide (Lasix) 40 mg DAILY PO 08/08/20 09:00 08/08/20 15:56 DC 08/08/20 08:43 Furosemide (Lasix) 40 mg DAILY PO 08/10/20 09:00 08/14/20 08:53 Glucagon (Glucagon) 1 mg ASDIRECTED PRN SC SEE LABEL COMMENTS 08/07/20 13:55 Glucose (Glucose) 16 GM ASDIRECTED PRN PO SEE LABEL COMMENTS 08/07/20 13:55 Insulin Human Lispro (HumaLOG INSULIN) SEE PROTOCOL TABLE AC SC 08/07/20 17:30 Cancel Insulin Human Lispro (HumaLOG INSULIN) SEE PROTOCOL TABLE QHS NM 08/07/20 21:00 Cancel Magnesium Oxide (Mag-Ox) 400 mg BID PO 08/12/20 09:00 08/14/20 08:41 Metformin HCl (Glucophage) 500 mg DAILY@18 PO 08/07/20 18:00 08/07/20 18:34 DC Metoprolol Succinate (TopROL XL) 25 mg DAILY PO 08/09/20 09:00 08/14/20 09:14 DC 08/14/20 08:42 Metoprolol Succinate (TopROL XL) 50 mg DAILY PO 08/08/20 09:00 08/09/20 08:55 DC 08/08/20 08:43 Metoprolol Succinate (TopROL XL) 50 mg DAILY PO 08/15/20 09:00 Mirtazapine (Remeron) 45 mg QHS PO 08/07/20 21:00 08/13/20 21:21 Multivitamins (Theragram-M) 1 tab DAILY PO 08/08/20 09:00 08/14/20 08:42 Nystatin (Mycostatin Powder, Nystop) groin BID TOP 08/07/20 21:00 08/14/20 08:45 Omeprazole (PriLOSEC) 40 mg BID PO 08/07/20 21:00 08/14/20 08:42 Phenylephrine HCl (Preparation H Supp) 1 sup BID [place] 08/12/20 21:00 08/14/20 08:41 Polyethylene Glycol (Miralax) 1 pkt DAILY PRN PO CONSTIPATION 08/07/20 13:55 Senna (Senokot) 1 tab QHS PO 08/07/20 21:00 08/13/20 21:21 TAYLOR RODRIGUEZ MD Aug 14, 2020 12:21
[2020-08-14 14:00] VITALS: BP 135/77
[2020-08-14] MEDS: SENNA 8.6 MG TAB (SENOKOT) PO SCH (21:00)
[2020-08-14 21:04] VITALS: BP 158/80
[2020-08-14] MEDS: MIRTAZAPINE 15 MG TAB PO SCH (21:38)
[2020-08-15 06:08] VITALS: BP 164/73
[2020-08-15 07:17] LABS: BASO # 0.1 10^3/uL (0.0-0.2); BASO % 1.1 % (0.0-1.0); EOS # 0.2 10^3/uL (0.0-0.5); EOS % 3.9 % (0.0-3.0); HEMATOCRIT 32.3 % (36.0-47.0); HEMOGLOBIN 8.9 g/dl (12.0-15.5); LYMPH # 1.3 10^3/uL (1.5-5.0); MEAN CORPUSCULAR HEMOGLOBIN 21.2 pg (27.0-33.0); MEAN CORPUSCULAR HGB CONC 27.6 g/dl (32.0-36.5); MEAN CORPUSCULAR VOLUME 76.9 fl (80.0-96.0); MONO # 0.5 10^3/uL (0.0-0.8); MONO % 10.1 % (2.0-8.0); NEUTROPHILS # 3.2 10^3/uL (1.5-8.5); NEUTROPHILS % 60.3 % (36.0-66.0); PLATELET COUNT, AUTOMATED 251 10^3/uL (150-450); WHITE BLOOD COUNT 5.4 10^3/uL (4.0-10.0)
[2020-08-15 07:42] LABS: CALCIUM LEVEL 8.4 MG/DL (8.8-10.2); CREATININE FOR GFR 1.09 MG/DL (0.55-1.30); GLOMERULAR FILTRATION RATE 50.4 (>32); MAGNESIUM LEVEL 1.7 MG/DL (1.8-2.4); POTASSIUM SERUM 3.6 MEQ/L (3.5-5.1)
[2020-08-15] MEDS: METOPROLOL SUCC (TopROL XL) 50MG **XL** TAB PO SCH (08:32)
[2020-08-15] MEDS: ATORVASTATIN 20 MG TAB PO SCH (08:33)
[2020-08-15] MEDS: OMEPRAZOLE 20 MG CAP PO SCH ×2 (08:33→21:29)
[2020-08-15] MEDS: MULTIVITAMINS/MINERALS THERAP 1 TAB PO SCH (08:33)
[2020-08-15] MEDS: MAGNESIUM OXIDE 400MG TAB (MAG-OX) PO SCH ×3 (08:33→21:29)
[2020-08-15] MEDS: APIXABAN 5 MG TAB (ELIQUIS) PO SCH ×2 (08:33→21:29)
[2020-08-15] MEDS: FERROUS GLUCONATE 324 MG TAB PO SCH (08:33)
[2020-08-15] MEDS: ESCITALOPRAM OXALATE 10 MG TAB (LEXAPRO) PO SCH (08:33)
[2020-08-15] MEDS: FUROSEMIDE 40 MG TAB PO SCH (08:34)
[2020-08-15] MEDS: DOCUSATE SODIUM 100MG CAPSULE PO SCH ×2 (08:34→20:07)
[2020-08-15] MEDS: PREPARATION H SUPP (HEMORRHOID) PR SCH ×2 (08:34→21:00)
[2020-08-15] MEDS: POTASSIUM CHLORIDE 10 MEQ SR TABLET PO SCH (08:39)
[2020-08-15] MEDS: REMEDY PHYTOPLEX Z-GUARD PASTE 113GM TUBE (FROM STOREROOM PRODUCT) TOP SCH ×3 (09:00→21:30)
[2020-08-15] MEDS: NYSTATIN 100,000 UNITS/GM TOPICAL PWD 15 GM TOP SCH ×2 (09:00→21:30)
--- NOTE | 2020-08-15 10:23 | IPNPDOC ---
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 REVIEW OF SYSTEMS: The following is a completed review of systems and has been reviewed. Review of systems otherwise unremarkable. PAIN: Patient self reports no pain EYES: No recent vision changes EARS, NOSE, & THROAT: No throat pain, or dysphagia, or rhinorrhea CARDIOVASCULAR: Denies chest pain or palpitations PULMONARY: Denies shortness of breath except on exertion (improving) GASTROINTESTINAL: Denies constipation/diarrhea GENITOURINARY: denies dysuria. MUSCULOSKELETAL: +generalized weakness NEUROLOGICAL:denies paresthesias HEMATOLOGICAL: denies easy bruising, +anemia SKIN: denies rash PSYCHIATRIC: Unremarkable All other review of systems found to be negative. PHYSICAL EXAMINATION: VITAL SIGNS: Please see below GENERAL: Pleasant and cooperative. No acute distress. HEENT: PERRL. Extraocular movements intact. Clear conjunctiva CARDIOVASCULAR: Regular rate and rhythm. No murmurs, rubs, or gallops LUNGS: Clear to auscultation bilaterally. No wheezes. No rhonchi ABDOMEN: Soft, nontender, nondistended. Positive bowel sounds. Normal active bowel sounds. NEUROLOGICAL: Alert and oriented times three. Cranial nerves II through XII grossly intact. Sensation grossly intact EXTREMITIES: 5\5 strength bilateral upper extremities. 5\5 strength right lower extremity. 5/5 strength in left lower extremity. ASSESSMENT:89-year-old F with past medical history of Afib, CAD, DM who presents status post new dx of CHF with exacerbation and weakness, requiring supplemental 02. PLAN: 1. Rehab- PT/OT advance mobility and ADLs, strengthen/stretch/maintain ROM all 4 limbs- ambulating with RW- room privileges 2. Cardiac- new dx of chronic CHF, likely diastolic with recent ECHO showing preserved EF- c/u daily weights, fluid restrict, lasix -Afib on beta-ester and eliquis -HTN c/u BP meds- c/u metoprolol succinate to 50mg daily and adding amlodipine as BPs a little elevated -HLD c/u statin -medicine consulted to assist in overall management 3. Resp- monitor for infection, s/p treatment for recent CAP -currently on 02, c/u wean while on ARU 4. Endo- hx of DM, patient refusing ISS and metformin contra-indicated with current renal function, c/u FS BID with hypoglycemic protocol in place, patients FS very well controlled off of metformin, f/u PMD for further management 5. GI ppx- prilosec 6. renal- CKD with recent NIKI, renal consulted to follow along and help with fluid management in setting of CHF- recs appreciated 7. DVT ppx- on eliquis 8. Pain- tylenol 9. Psych- hx of depression/anxiety- lexapro 10. Hypomagnesemia- c/u to replete, increasing Mg ox dosing to 400mg TID 11. Dispo- [facility] for assisted living 08-20-20 Allergies Coded Allergies: Penicillins (Verified Allergy, Intermediate, RASH, 07/02/20) Sulfa (Sulfonamide Antibiotics) (Verified Allergy, Unknown, 07/19/18) lactose (Verified Adverse Reaction, Mild, diarrhea, 07/19/18) Vital Signs Vital Signs Date Time Temp Pulse Resp B/P (MAP) Pulse Ox O2 Delivery O2 Flow Rate FiO2 08/15/20 08:32 107 164/73 08/15/20 06:08 96.7 18 91 Room Air 08/10/20 21:25 0.0 Laboratory Data CBC/BMP Laboratory Tests 08/15/20 06:38 Labs 24H Laboratory Tests 2 08/14/20 16:37: Bedside Glucose (Misc Panel) 136H 08/15/20 06:38: Immature Granulocyte % (Auto) 0.6, Neutrophils (%) (Auto) 60.3, Lymphocytes (%) (Auto) 24.0, Monocytes (%) (Auto) 10.1H, Eosinophils (%) (Auto) 3.9H, Basophils (%) (Auto) 1.1H, Neutrophils # (Auto) 3.2, Lymphocytes # (Auto) 1.3L, Monocytes # (Auto) 0.5, Eosinophils # (Auto) 0.2, Basophils # (Auto) 0.1, Nucleated Red Blood Cells % (auto) 0.0, Anion Gap 7L, Glomerular Filtration Rate 50.4, Calcium Level 8.4L, Magnesium Level 1.7L 08/15/20 06:51: Bedside Glucose (Misc Panel) 133H Current Medications Current Medications Current Medications Medications (Trade) Dose Ordered Sig/Ashly Route PRN Reason Start Time Stop Time Status Last Admin Dose Admin Acetaminophen (Tylenol Tab) 650 mg Q4HP PRN PO fever/MILD PAIN (PS 1-4) 08/07/20 13:55 Amlodipine Besylate (Norvasc) 5 mg DAILY PO 08/15/20 10:15 Apixaban (Eliquis) 5 mg BID PO 08/07/20 21:00 08/15/20 08:33 Atorvastatin Calcium (Lipitor) 40 mg DAILY PO 08/08/20 09:00 08/15/20 08:33 Bisacodyl (Dulcolax Suppository) 10 mg DAILYPRN PRN [place] CONSTIPATION 08/07/20 13:55 Dextrose (Dextrose 50%) 25 ml ASDIRECTED PRN IV SEE LABEL COMMENTS 08/07/20 13:55 Docusate Sodium (Colace) 100 mg BID PO 08/07/20 21:00 08/14/20 08:42 Escitalopram Oxalate (Lexapro) 20 mg DAILY PO 08/08/20 09:00 08/15/20 08:33 Ferrous Gluconate (Fergon) 324 mg DAILY PO 08/08/20 09:00 08/15/20 08:33 Furosemide (Lasix) 40 mg BID PO 08/08/20 21:00 08/09/20 18:25 DC 08/08/20 20:37 Furosemide (Lasix) 40 mg DAILY PO 08/08/20 09:00 08/08/20 15:56 DC 08/08/20 08:43 Furosemide (Lasix) 40 mg DAILY PO 08/10/20 09:00 08/15/20 08:34 Glucagon (Glucagon) 1 mg ASDIRECTED PRN SC SEE LABEL COMMENTS 08/07/20 13:55 Glucose (Glucose) 16 GM ASDIRECTED PRN PO SEE LABEL COMMENTS 08/07/20 13:55 Insulin Human Lispro (HumaLOG INSULIN) SEE PROTOCOL TABLE AC SC 08/07/20 17:30 Cancel Insulin Human Lispro (HumaLOG INSULIN) SEE PROTOCOL TABLE QHS SC 08/07/20 21:00 Cancel Magnesium Oxide (Mag-Ox) 400 mg BID PO 08/12/20 09:00 08/15/20 08:33 Metformin HCl (Glucophage) 500 mg DAILY@18 PO 08/07/20 18:00 08/07/20 18:34 DC Metoprolol Succinate (TopROL XL) 25 mg DAILY PO 08/09/20 09:00 08/14/20 09:14 DC 08/14/20 08:42 Metoprolol Succinate (TopROL XL) 50 mg DAILY PO 08/08/20 09:00 08/09/20 08:55 DC 08/08/20 08:43 Metoprolol Succinate (TopROL XL) 50 mg DAILY PO 08/15/20 09:00 08/15/20 08:32 Mirtazapine (Remeron) 45 mg QHS PO 08/07/20 21:00 08/14/20 21:38 Multivitamins (Theragram-M) 1 tab DAILY PO 08/08/20 09:00 08/15/20 08:33 Nystatin (Mycostatin Powder, Nystop) groin BID TOP 08/07/20 21:00 08/14/20 21:39 Omeprazole (PriLOSEC) 40 mg BID PO 08/07/20 21:00 08/15/20 08:33 Phenylephrine HCl (Preparation H Supp) 1 sup BID [place] 08/12/20 21:00 08/15/20 08:34 Polyethylene Glycol (Miralax) 1 pkt DAILY PRN PO CONSTIPATION 08/07/20 13:55 Potassium Chloride (Micro-K Extencaps) 10 meq DAILY PO 08/15/20 09:00 08/15/20 08:39 Senna (Senokot) 1 tab QHS PO 08/07/20 21:00 08/13/20 21:21 TAYLOR RODRIGUEZ MD Aug 15, 2020 10:23
--- NOTE | 2020-08-15 11:44 | IPN ---
PROGRESS NOTE DATE: 08/15/2020 Ms. Orozco is seen this morning on her bedside. She is feeling well and currently resting in the bed. She had her physical therapy session earlier this morning. She denies any dyspnea, chest pain, nausea, or vomiting. PHYSICAL EXAMINATION: Temperature 96.7 degrees Fahrenheit, heart rate 83 per minute, respiratory rate 18 per minute, blood pressure 164/73 mmHg, and oxygen saturation 91% on room air. Head atraumatic. Neck supple and without jugular venous distention (JVD) or thyroid enlargement. Heart sounds are irregular and lungs clear to auscultation. Abdomen soft and nontender, and bowel sounds are normal. Extremities without any cyanosis or clubbing. Neurologically she has no focal deficit. Today's labs show WBC count 5.4, hemoglobin 8.9, and hematocrit 32.3. Sodium 143, potassium 3.6, CO2 of 28, BUN 18, and creatinine 1.09. Magnesium level is up to 1.7. PROBLEMS: 1. Acute on chronic kidney disease. Kidney function has been mostly stable with creatinine between 1.0-1.1. 2. Congestive heart failure. Volume status very well compensated, only on 40 mg furosemide daily. No changes are needed. 3. Hypokalemia. Her potassium level gradually decreasing. I am going to start her on potassium chloride 10 mEq daily. 4. Hypomagnesemia. She has been on oral magnesium oxide; however, magnesium level was still drifting down, and gave her a dose of magnesium sulfate intravenously yesterday. Magnesium level is up to 1.7 today. She should continue with oral supplement. 5. Anemia. Her anemia is stable, and patient remains on oral iron supplement.
[2020-08-15 14:00] VITALS: BP 128/76
[2020-08-15] MEDS: amLODIPine 5 MG TAB PO SCH (17:40)
[2020-08-15 20:00] VITALS: BP 147/86
[2020-08-15] MEDS: SENNA 8.6 MG TAB (SENOKOT) PO SCH (20:07)
[2020-08-15] MEDS: MIRTAZAPINE 15 MG TAB PO SCH (21:30)
[2020-08-16 06:00] VITALS: BP 129/65
[2020-08-16] MEDS: MAGNESIUM OXIDE 400MG TAB (MAG-OX) PO SCH ×3 (08:57→21:23)
[2020-08-16] MEDS: FERROUS GLUCONATE 324 MG TAB PO SCH (08:57)
[2020-08-16] MEDS: ESCITALOPRAM OXALATE 10 MG TAB (LEXAPRO) PO SCH (08:57)
[2020-08-16] MEDS: APIXABAN 5 MG TAB (ELIQUIS) PO SCH ×2 (08:57→21:23)
[2020-08-16] MEDS: POTASSIUM CHLORIDE 10 MEQ SR TABLET PO SCH (08:57)
[2020-08-16] MEDS: MULTIVITAMINS/MINERALS THERAP 1 TAB PO SCH (08:57)
[2020-08-16] MEDS: OMEPRAZOLE 20 MG CAP PO SCH ×2 (08:58→21:23)
[2020-08-16] MEDS: PREPARATION H SUPP (HEMORRHOID) PR SCH (08:58)
[2020-08-16] MEDS: ATORVASTATIN 20 MG TAB PO SCH (08:58)
[2020-08-16] MEDS: METOPROLOL SUCC (TopROL XL) 50MG **XL** TAB PO SCH (08:58)
[2020-08-16] MEDS: amLODIPine 5 MG TAB PO SCH (08:58)
[2020-08-16] MEDS: FUROSEMIDE 40 MG TAB PO SCH (08:58)
[2020-08-16] MEDS: DOCUSATE SODIUM 100MG CAPSULE PO SCH ×2 (08:59→21:00)
[2020-08-16] MEDS: NYSTATIN 100,000 UNITS/GM TOPICAL PWD 15 GM TOP SCH ×2 (08:59→21:24)
[2020-08-16] MEDS: REMEDY PHYTOPLEX Z-GUARD PASTE 113GM TUBE (FROM STOREROOM PRODUCT) TOP SCH ×3 (08:59→21:24)
--- NOTE | 2020-08-16 12:22 | IPN ---
PROGRESS NOTE DATE: 08/16/2020 SUBJECTIVE: Patient was seen and examined at the bedside today morning in the rehabilitation unit. She is afebrile, hemodynamically stable. Renal function is stable according to the latest labs. She denies any active complaints at this time. OBJECTIVE: Vital signs: Temperature is 98.4 degrees Fahrenheit, blood pressure 129/65, pulse is 103, respiratory rate of 16, saturating 91% on room air. Intake and output: Urine output is not recorded. She is having incontinent voids. Weight in the bed scale is 75.3 kg, which is stable. PHYSICAL EXAMINATION: GENERAL: Patient is awake, alert, oriented times three, lying in bed in no apparent distress. HEAD AND NECK: Extraocular muscles intact. Pupils equally round and reactive to light. Mucous membranes are moist. Neck is supple. There is no jugular venous distention (JVD). CARDIOVASCULAR: S1, S2, regular rate. No edema of the bilateral lower extremities. RESPIRATORY: Chest is clear to auscultation bilaterally. Bilateral equal air entry. No rales or rhonchi. ABDOMEN: Soft. Positive bowel sounds. Nontender. No organomegaly. MUSCULOSKELETAL: No clubbing or cyanosis. Pulses are 2+. CENTRAL NERVOUS SYSTEM: No focal deficit. Power is 5/5 in all extremities. LABORATORY REVIEW: CBC showed a hemoglobin of 8.9 yesterday. BMP showed sodium 143, potassium 3.6, chloride 108, bicarbonate 28, BUN 18, creatinine is 1.09. CURRENT INPATIENT MEDICATIONS: Patient's medications were all reviewed by myself. Amlodipine dose has been changed to 10 mg by mouth daily. Magnesium dose was changed to 400 mg by mouth three times a day. She continues to be on furosemide 40 mg by mouth daily. ASSESSMENT AND PLAN: 1. Chronic kidney disease, stage III. Patient's renal function is stable. Okay to continue current diuretic dose. Latest creatinine was 1.09 yesterday. 2. Hypomagnesemia. Patient was given intravenous (IV) magnesium. He magnesium dose has been changed to 400 mg by mouth three times a day. Check the magnesium level in the morning. 3. Anemia and chronic kidney disease. Patient's hemoglobin level is still persistently low. Iron levels will be checked with the next lab draw. 4. Chronic diastolic congestive heart failure. Patient has an left ventricular (LV) ejection fraction of around 70% with aortic stenosis. She continues to be on Lasix 40 mg daily. Continue current dose at this time.
[2020-08-16 14:00] VITALS: BP 119/72
[2020-08-16 20:00] VITALS: BP 122/77
[2020-08-16] MEDS: SENNA 8.6 MG TAB (SENOKOT) PO SCH (21:00)
[2020-08-16] MEDS: MIRTAZAPINE 15 MG TAB PO SCH (21:24)
[2020-08-17 05:28] VITALS: BP 143/74
[2020-08-17] MEDS: MULTIVITAMINS/MINERALS THERAP 1 TAB PO SCH (08:27)
[2020-08-17] MEDS: OMEPRAZOLE 20 MG CAP PO SCH ×2 (08:27→20:15)
[2020-08-17] MEDS: FERROUS GLUCONATE 324 MG TAB PO SCH (08:28)
[2020-08-17] MEDS: MAGNESIUM OXIDE 400MG TAB (MAG-OX) PO SCH ×3 (08:28→20:15)
[2020-08-17] MEDS: METOPROLOL SUCC (TopROL XL) 50MG **XL** TAB PO SCH (08:28)
[2020-08-17] MEDS: ATORVASTATIN 20 MG TAB PO SCH (08:28)
[2020-08-17] MEDS: APIXABAN 5 MG TAB (ELIQUIS) PO SCH ×2 (08:28→20:15)
[2020-08-17] MEDS: FUROSEMIDE 40 MG TAB PO SCH (08:28)
[2020-08-17] MEDS: ESCITALOPRAM OXALATE 10 MG TAB (LEXAPRO) PO SCH (08:28)
[2020-08-17] MEDS: POTASSIUM CHLORIDE 10 MEQ SR TABLET PO SCH (08:28)
[2020-08-17] MEDS: DOCUSATE SODIUM 100MG CAPSULE PO SCH ×2 (08:28→20:15)
[2020-08-17] MEDS: REMEDY PHYTOPLEX Z-GUARD PASTE 113GM TUBE (FROM STOREROOM PRODUCT) TOP SCH ×3 (08:29→20:16)
[2020-08-17] MEDS: NYSTATIN 100,000 UNITS/GM TOPICAL PWD 15 GM TOP SCH ×2 (08:29→20:15)
[2020-08-17 14:00] VITALS: BP 126/63
[2020-08-17] MEDS: SENNA 8.6 MG TAB (SENOKOT) PO SCH (20:10)
[2020-08-17] MEDS: MIRTAZAPINE 15 MG TAB PO SCH (20:14)
[2020-08-17 21:22] VITALS: BP 131/63
[2020-08-18 06:18] VITALS: BP 115/64
[2020-08-18 07:10] LABS: BASO # 0.1 10^3/uL (0.0-0.2); BASO % 0.8 % (0.0-1.0); EOS # 0.2 10^3/uL (0.0-0.5); EOS % 3.7 % (0.0-3.0); HEMATOCRIT 34.7 % (36.0-47.0); HEMOGLOBIN 9.6 g/dl (12.0-15.5); LYMPH # 1.6 10^3/uL (1.5-5.0); LYMPH % 26.6 % (24.0-44.0); MEAN CORPUSCULAR HEMOGLOBIN 21.8 pg (27.0-33.0); MEAN CORPUSCULAR HGB CONC 27.7 g/dl (32.0-36.5); MEAN CORPUSCULAR VOLUME 78.7 fl (80.0-96.0); MONO # 0.7 10^3/uL (0.0-0.8); MONO % 10.8 % (2.0-8.0); NEUTROPHILS # 3.5 10^3/uL (1.5-8.5); NEUTROPHILS % 57.4 % (36.0-66.0); PLATELET COUNT, AUTOMATED 283 10^3/uL (150-450); RED BLOOD COUNT 4.41 10^6/uL (4.00-5.40)
[2020-08-18 07:49] LABS: CALCIUM LEVEL 8.5 MG/DL (8.8-10.2); CREATININE FOR GFR 1.35 MG/DL (0.55-1.30); GLOMERULAR FILTRATION RATE 39.4 (>32); PERCENT SATURATION 5.7 % (13.2-45.0); POTASSIUM SERUM 4.2 MEQ/L (3.5-5.1)
[2020-08-18 09:00] VITALS: BP 173/85
[2020-08-18] MEDS: ESCITALOPRAM OXALATE 10 MG TAB (LEXAPRO) PO SCH (09:05)
[2020-08-18] MEDS: ATORVASTATIN 20 MG TAB PO SCH (09:05)
[2020-08-18] MEDS: APIXABAN 5 MG TAB (ELIQUIS) PO SCH ×2 (09:05→21:15)
[2020-08-18] MEDS: FERROUS GLUCONATE 324 MG TAB PO SCH (09:05)
[2020-08-18] MEDS: OMEPRAZOLE 20 MG CAP PO SCH ×2 (09:05→21:14)
[2020-08-18] MEDS: MULTIVITAMINS/MINERALS THERAP 1 TAB PO SCH (09:06)
[2020-08-18] MEDS: DOCUSATE SODIUM 100MG CAPSULE PO SCH ×2 (09:06→21:15)
[2020-08-18] MEDS: FUROSEMIDE 40 MG TAB PO SCH (09:06)
[2020-08-18] MEDS: METOPROLOL SUCC (TopROL XL) 50MG **XL** TAB PO SCH (09:06)
[2020-08-18] MEDS: POTASSIUM CHLORIDE 10 MEQ SR TABLET PO SCH (09:06)
[2020-08-18] MEDS: MAGNESIUM OXIDE 400MG TAB (MAG-OX) PO SCH ×3 (09:06→21:14)
[2020-08-18] MEDS: NYSTATIN 100,000 UNITS/GM TOPICAL PWD 15 GM TOP SCH ×2 (09:07→21:16)
[2020-08-18] MEDS: REMEDY PHYTOPLEX Z-GUARD PASTE 113GM TUBE (FROM STOREROOM PRODUCT) TOP SCH ×3 (09:07→21:15)
[2020-08-18 09:09] VITALS: BP 148/88
[2020-08-18 14:00] VITALS: BP 115/65
[2020-08-18] MEDS: IRON SUCROSE 200 MG in NS 100 ML IV SCH (14:22)
[2020-08-18 20:00] VITALS: BP 140/72
[2020-08-18] MEDS: MIRTAZAPINE 15 MG TAB PO SCH (21:14)
[2020-08-18] MEDS: SENNA 8.6 MG TAB (SENOKOT) PO SCH (21:15)
--- NOTE | 2020-08-18 23:28 | IPN ---
NEPHROLOGY PROGRESS NOTE DATE: 08/18/2020 SUBJECTIVE: The patient was seen and examined at the bedside today morning in the rehab unit. She was sitting up on the sofa. She denies any active complaints at this time. However looking at her labs, there is a bump in her creatinine from 1.09 to 1.35 now. She continues to be on Lasix 40 mg p.o. daily. OBJECTIVE: VITAL SIGNS: Temperature is 97 degrees Fahrenheit, blood pressure 115/65, pulse is 85, respiratory rate of 18, saturating 92% on room air. INTAKE AND OUTPUT: Urine output is not recorded. The patient has six recorded outputs since overnight. Weight in the bed scale is 75.3 kg which is stable since yesterday. PHYSICAL EXAMINATION: GENERAL APPEARANCE: The patient is awake, alert, oriented x3, sitting up on the sofa in no apparent distress. HEAD AND NECK: Extraocular muscles intact. Pupils are equally round and reactive to light. Mucous membranes are moist. Neck is supple. There is no jugular venous distention. CARDIOVASCULAR: S1, S2, regular rate. EXTREMITIES: No edema of the bilateral lower extremities. RESPIRATORY: Chest is clear to auscultation bilaterally. Bilaterally currently no rales or rhonchi. ABDOMEN: Soft, positive bowel sounds, nontender, no organomegaly. MUSCULOSKELETAL: No clubbing, no cyanosis. Pulses are 2+. 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 Power is 5/5 in all extremities. LAB REVIEW: CBC showed a white blood cell count of 6, hemoglobin 9.6, platelet count 283. BMP showed sodium of 143, potassium 4.2, chloride 108, bicarbonate 27, BUN 24, creatinine is 1.3; it was 1.09 on August 15. Calcium 8.5, iron 23, TIBC 406. Transferrin saturation is 5.7. Ferratin is 39. CURRENT INPATIENT MEDICATIONS: The patient's medications were all reviewed by myself. I have decreased the Furosemide dose to 20 mg p.o. daily. I have also stopped the oral potassium and I have started the patient on IV Venofer. ASSESSMENT AND PLAN: 1. Acute renal failure superimposed on chronic kidney disease - The patient has a bump in the creatinine as compared with the labs from 4 days ago and diuretic dose is being decreased now. 2. Iron deficiency anemia - The patient is being given IV Venofer. 3. Chronic diastolic congestive heart failure volume status is optimal. She is clinically slightly dry now. Diuretic is being decreased. 4. Hypomagnesemia - continue current dose of oral magnesium. 5. Hypertension - blood pressure is controlled with current dose of Amlodipine and Metoprolol.
[2020-08-19 06:32] VITALS: BP 119/76
[2020-08-19] MEDS: MULTIVITAMINS/MINERALS THERAP 1 TAB PO SCH (08:32)
[2020-08-19] MEDS: ESCITALOPRAM OXALATE 10 MG TAB (LEXAPRO) PO SCH (08:33)
[2020-08-19] MEDS: APIXABAN 5 MG TAB (ELIQUIS) PO SCH ×2 (08:33→20:47)
[2020-08-19] MEDS: DOCUSATE SODIUM 100MG CAPSULE PO SCH ×2 (08:33→20:47)
[2020-08-19] MEDS: ATORVASTATIN 20 MG TAB PO SCH (08:33)
[2020-08-19] MEDS: MAGNESIUM OXIDE 400MG TAB (MAG-OX) PO SCH ×3 (08:33→20:47)
[2020-08-19] MEDS: FERROUS GLUCONATE 324 MG TAB PO SCH (08:33)
[2020-08-19] MEDS: OMEPRAZOLE 20 MG CAP PO SCH ×2 (08:33→20:47)
[2020-08-19] MEDS: REMEDY PHYTOPLEX Z-GUARD PASTE 113GM TUBE (FROM STOREROOM PRODUCT) TOP SCH ×3 (08:34→20:50)
[2020-08-19] MEDS: METOPROLOL SUCC (TopROL XL) 50MG **XL** TAB PO SCH (08:34)
[2020-08-19] MEDS: IRON SUCROSE 200 MG in NS 100 ML IV SCH (08:35)
[2020-08-19] MEDS: NYSTATIN 100,000 UNITS/GM TOPICAL PWD 15 GM TOP SCH ×2 (09:00→20:50)
[2020-08-19] MEDS ORDERED: FUROSEMIDE 20 MG TAB PO SCH (09:00)
[2020-08-19] MEDS ORDERED: OMEP40CA97 PO (09:13)
[2020-08-19] MEDS ORDERED: LEXA1TAB2 PO (09:13)
[2020-08-19] MEDS ORDERED: MIRT-62 PO (09:13)
[2020-08-19] MEDS ORDERED: MAGN400T2 PO (09:13)
[2020-08-19] MEDS ORDERED: ATOR40TA75 PO (09:13)
[2020-08-19] MEDS ORDERED: ELIQ5TAB PO (09:13)
[2020-08-19] MEDS ORDERED: FURO20TA2 PO (09:13)
[2020-08-19] MEDS ORDERED: LEXA1TAB PO (09:13)
[2020-08-19] MEDS ORDERED: METO1TAB7 PO (09:13)
[2020-08-19] MEDS ORDERED: AMLO1TAB25 PO (09:13)
[2020-08-19] MEDS ORDERED: FERR32TA PO (09:13)
--- NOTE | 2020-08-19 09:28 | IPNPDOC ---
PM&R Progress Note DATE OF SERVICE: Aug 18, 2020 [employer] Progress Note Subjective: Patient seen in therapy working on high level balance training stating she is feeling good today. REVIEW OF SYSTEMS: The following is a completed review of systems and has been reviewed. Review of systems otherwise unremarkable. PAIN: Patient self reports no pain EYES: No recent vision changes EARS, NOSE, & THROAT: No throat pain, or dysphagia, or rhinorrhea CARDIOVASCULAR: Denies chest pain or palpitations PULMONARY: Denies shortness of breath except on exertion (improving) GASTROINTESTINAL: Denies constipation/diarrhea GENITOURINARY: denies dysuria. MUSCULOSKELETAL: +generalized weakness NEUROLOGICAL:denies paresthesias HEMATOLOGICAL: denies easy bruising, +anemia SKIN: denies rash PSYCHIATRIC: Unremarkable All other review of systems found to be negative. PHYSICAL EXAMINATION: VITAL SIGNS: Please see below GENERAL: Pleasant and cooperative. No acute distress. HEENT: PERRL. Extraocular movements intact. Clear conjunctiva CARDIOVASCULAR: Regular rate and rhythm. No murmurs, rubs, or gallops LUNGS: Clear to auscultation bilaterally. No wheezes. No rhonchi ABDOMEN: Soft, nontender, nondistended. Positive bowel sounds. Normal active bowel sounds. NEUROLOGICAL: Alert and oriented times three. Cranial nerves II through XII grossly intact. Sensation grossly intact EXTREMITIES: 5\5 strength bilateral upper extremities. 5\5 strength right lower extremity. 5/5 strength in left lower extremity. ASSESSMENT:89-year-old F with past medical history of Afib, CAD, DM who presents status post new dx of CHF with exacerbation and weakness, requiring supplemental 02. PLAN: 1. Rehab- PT/OT advance mobility and ADLs, strengthen/stretch/maintain ROM all 4 limbs- ambulating with RW- room privileges 2. Neuro- patient appears to have mild dementia that per her daughter in law has gotten worse over the last year, patient is A&O times 3, is able to make ap propriate and safe decisions on ARU, patient admits to forgetting what she has eaten some days, but can dress and bath herself, participate in therapy at a Mod-I level, patient is an avid reader and is often seen reading novels in her room -per discussion with patient's [id number] over the weekend patient may have had an episode of delirium on the unit-where she mistook a masked-transporter (who had brought her a letter and chatted for a while) with her neighbor- patient's [id number] was reassured that given patient has some short-term memory loss related to dementia that she is more likely to have episodes of delirium- UA was ordered to r/o infectious source which was negative, recommend neurology work-up for dementia on d/c 3. Cardiac- new dx of chronic CHF, likely diastolic with recent ECHO showing preserved EF- c/u daily weights, fluid restrict, lasix -Afib on beta-ester and eliquis -HTN c/u BP meds- c/u metoprolol succinate to 50mg daily and adding amlodipine as BPs a little elevated -HLD c/u statin -medicine consulted to assist in overall management 3. Resp- monitor for infection, s/p treatment for recent CAP -currently on , c/u wean while on ARU 4. Endo- hx of DM, patient refusing ISS and metformin contra-indicated with current renal function, c/u FS BID with hypoglycemic protocol in place, patients FS very well controlled off of metformin, f/u PMD for further management 5. GI ppx- prilosec 6. renal- CKD with recent NIKI, renal consulted to follow along and help with fluid management in setting of CHF- recs appreciated 7. DVT ppx- on eliquis 8. Pain- tylenol 9. Psych- hx of depression/anxiety- lexapro 10. Heme- SILVIA and anemia of chronic disease being followed by renal- c/u venofer and oral iron 11. Hypomagnesemia- c/u to replete, increased Mg ox dosing to 400mg TID 12. Dispo- assisted living, family looking at facility in [place] as alternative to [facility] and will discuss this option with patient today Allergies Coded Allergies: Penicillins (Verified Allergy, Intermediate, RASH, 07/02/20) Sulfa (Sulfonamide Antibiotics) (Verified Allergy, Unknown, 07/19/18) lactose (Verified Adverse Reaction, Mild, diarrhea, 07/19/18) Vital Signs Vital Signs Date Time Temp Pulse Resp B/P (MAP) Pulse Ox O2 Delivery O2 Flow Rate FiO2 08/19/20 08:34 89 128/76 08/19/20 06:32 98.6 16 97 Room Air Laboratory Data Labs 24H Laboratory Tests 2 08/18/20 16:30: Bedside Glucose (Misc Panel) 138H 08/19/20 06:08: Bedside Glucose (Misc Panel) 106 Current Medications Current Medications Current Medications Medications (Trade) Dose Ordered Sig/Ashly Route PRN Reason Start Time Stop Time Status Last Admin Dose Admin Acetaminophen (Tylenol Tab) 650 mg Q4HP PRN PO fever/MILD PAIN (PS 1-4) 08/07/20 13:55 Amlodipine Besylate (Norvasc) 5 mg DAILY PO 08/15/20 10:15 08/16/20 09:52 DC 08/16/20 08:58 Amlodipine Besylate (Norvasc) 10 mg DAILY PO 08/17/20 09:00 08/19/20 08:34 Apixaban (Eliquis) 5 mg BID PO 08/07/20 21:00 08/19/20 08:33 Atorvastatin Calcium (Lipitor) 40 mg DAILY PO 08/08/20 09:00 08/19/20 08:33 Bisacodyl (Dulcolax Suppository) 10 mg DAILYPRN PRN TX CONSTIPATION 08/07/20 13:55 Dextrose (Dextrose 50%) 25 ml ASDIRECTED PRN IV SEE LABEL COMMENTS 08/07/20 13:55 Docusate Sodium (Colace) 100 mg BID PO 08/07/20 21:00 08/19/20 08:33 Escitalopram Oxalate (Lexapro) 20 mg DAILY PO 08/08/20 09:00 08/19/20 08:33 Ferrous Gluconate (Fergon) 324 mg DAILY PO 08/08/20 09:00 08/19/20 08:33 Furosemide (Lasix) 20 mg DAILY PO 08/19/20 09:00 08/19/20 08:33 Furosemide (Lasix) 40 mg BID PO 08/08/20 21:00 08/09/20 18:25 DC 08/08/20 20:37 Furosemide (Lasix) 40 mg DAILY PO 08/08/20 09:00 08/08/20 15:56 DC 08/08/20 08:43 Furosemide (Lasix) 40 mg DAILY PO 08/10/20 09:00 08/18/20 10:42 DC 08/18/20 09:06 Glucagon (Glucagon) 1 mg ASDIRECTED PRN SC SEE LABEL COMMENTS 08/07/20 13:55 Glucose (Glucose) 16 GM ASDIRECTED PRN PO SEE LABEL COMMENTS 08/07/20 13:55 Insulin Human Lispro (HumaLOG INSULIN) SEE PROTOCOL TABLE AC SC 08/07/20 17:30 Cancel Insulin Human Lispro (HumaLOG INSULIN) SEE PROTOCOL TABLE QHS SC 08/07/20 21:00 Cancel Iron 200 mg/ Sodium Chloride 110 ml @ 110 mls/hr DAILY IV 08/18/20 13:00 08/19/20 09:59 08/19/20 08:35 Magnesium Oxide (Mag-Ox) 400 mg BID PO 08/12/20 09:00 08/15/20 10:19 DC 08/15/20 08:33 Magnesium Oxide (Mag-Ox) 400 mg TID PO 08/15/20 16:00 08/19/20 08:33 Metformin HCl (Glucophage) 500 mg DAILY@18 PO 08/07/20 18:00 08/07/20 18:34 DC Metoprolol Succinate (TopROL XL) 25 mg DAILY PO 08/09/20 09:00 08/14/20 09:14 DC 08/14/20 08:42 Metoprolol Succinate (TopROL XL) 50 mg DAILY PO 08/08/20 09:00 08/09/20 08:55 DC 08/08/20 08:43 Metoprolol Succinate (TopROL XL) 50 mg DAILY PO 08/15/20 09:00 08/19/20 08:34 Mirtazapine (Remeron) 45 mg QHS PO 08/07/20 21:00 08/18/20 21:14 Multivitamins (Theragram-M) 1 tab DAILY PO 08/08/20 09:00 08/19/20 08:32 Nystatin (Mycostatin Powder, Nystop) groin BID TOP 08/07/20 21:00 08/18/20 21:16 Omeprazole (PriLOSEC) 40 mg BID PO 08/07/20 21:00 08/19/20 08:33 Phenylephrine HCl (Preparation H Supp) 1 sup BID TX 08/12/20 21:00 08/16/20 09:52 DC 08/15/20 08:34 Polyethylene Glycol (Miralax) 1 pkt DAILY PRN PO CONSTIPATION 08/07/20 13:55 Potassium Chloride (Micro-K Extencaps) 10 meq DAILY PO 08/15/20 09:00 08/18/20 10:42 DC 08/18/20 09:06 Senna (Senokot) 1 tab QHS PO 08/07/20 21:00 08/18/20 21:15 TAYLOR RODRIGUEZ MD Aug 19, 2020 09:28
[2020-08-19 10:00] LABS: BASO # 0.1 10^3/uL (0.0-0.2); BASO % 0.9 % (0.0-1.0); EOS # 0.2 10^3/uL (0.0-0.5); EOS % 2.7 % (0.0-3.0); HEMATOCRIT 32.8 % (36.0-47.0); HEMOGLOBIN 9.2 g/dl (12.0-15.5); LYMPH # 0.9 10^3/uL (1.5-5.0); LYMPH % 15.2 % (24.0-44.0); MEAN CORPUSCULAR HEMOGLOBIN 21.9 pg (27.0-33.0); MEAN CORPUSCULAR VOLUME 77.9 fl (80.0-96.0); MONO # 0.5 10^3/uL (0.0-0.8); MONO % 8.5 % (2.0-8.0); NEUTROPHILS # 4.2 10^3/uL (1.5-8.5); PLATELET COUNT, AUTOMATED 247 10^3/uL (150-450); RED BLOOD COUNT 4.21 10^6/uL (4.00-5.40); WHITE BLOOD COUNT 5.9 10^3/uL (4.0-10.0)
[2020-08-19 10:39] LABS: CALCIUM LEVEL 8.2 MG/DL (8.8-10.2); CREATININE FOR GFR 1.18 MG/DL (0.55-1.30)
[2020-08-19 14:00] VITALS: BP 121/56
[2020-08-19 20:00] VITALS: BP 168/84
[2020-08-19] MEDS: SENNA 8.6 MG TAB (SENOKOT) PO SCH (20:47)
[2020-08-19] MEDS: MIRTAZAPINE 15 MG TAB PO SCH (20:47)
[2020-08-20 06:06] VITALS: BP 117/70
[2020-08-20] MEDS: ESCITALOPRAM OXALATE 10 MG TAB (LEXAPRO) PO SCH (06:59)
[2020-08-20] MEDS: MULTIVITAMINS/MINERALS THERAP 1 TAB PO SCH (06:59)
[2020-08-20 07:00] VITALS: BP 117/70
[2020-08-20] MEDS: FERROUS GLUCONATE 324 MG TAB PO SCH (07:00)
[2020-08-20] MEDS: OMEPRAZOLE 20 MG CAP PO SCH (07:00)
[2020-08-20] MEDS: APIXABAN 5 MG TAB (ELIQUIS) PO SCH (07:00)
[2020-08-20] MEDS: METOPROLOL SUCC (TopROL XL) 50MG **XL** TAB PO SCH (07:00)
[2020-08-20] MEDS: ATORVASTATIN 20 MG TAB PO SCH (07:01)
--- NOTE | 2020-08-20 08:59 | IPN ---
NEPHROLOGY PROGRESS NOTE DATE: 08/19/2020 SUBJECTIVE: Patient was seen and examined at the bedside today morning in the rehab unit. She is afebrile, hemodynamically stable. Her renal function has improved back to baseline with lower dose of diuretic. Patient reports that she is getting ready to be discharged today. OBJECTIVE: VITAL SIGNS: Temperature 99 degrees Fahrenheit, blood pressure 121/56, pulse 85, respiratory rate 18, saturating 90% on room air. INTAKE/OUTPUT: Urine output is not recorded. She has some incontinent voids as well. Weight in the bed scale is stable at 75.1 kg. PHYSICAL EXAMINATION: GENERAL: Patient is awake, alert, oriented x3, sitting up in the bed, in no apparent distress. HEAD/NECK: Extraocular muscles intact. Pupils equally round and reactive to light. Mucous membranes are moist. Neck is supple. There is no JVD. CARDIOVASCULAR: S1, S2, regular rate. No edema of the bilateral lower extremities. RESPIRATORY: Chest is clear to auscultation bilaterally. Bilateral equal air entry. No rales or rhonchi. ABDOMEN: Soft, positive bowel sounds, nontender. No organomegaly. MUSCULOSKELETAL: No cyanosis or clubbing. Pulses are 2+. 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 Power is 5/5 in all extremities. LABORATORY REVIEW: CBC showed WBC 5.9, hemoglobin 9.2, platelets 247,000. BMP showed sodium 141, potassium 4, chloride 107, bicarb 27, BUN 19, creatinine 1.1; it was 1.3 yesterday. Calcium 8.2. CURRENT INPATIENT MEDICATIONS: Patient's medications were all reviewed by myself. She got second dose of I.V. Venofer today. Her Furosemide dose was changed to 20 mg p.o. daily. No other significant change in the medications today. ASSESSMENT AND PLAN: 1. Acute renal failure superimposed on chronic kidney disease: Patient's renal function is improved and close to her baseline now. Continue low dose of diuretic now. 2. Iron deficiency anemia: Patient got two doses of I.V. Venofer now. 3. Chronic diastolic congestive heart failure: Continue Lasix at 20 mg p.o. daily. 4. Hypertension: Blood pressure is controlled with Metoprolol and Amlodipine. DISPOSITION: Patient is optimized from nephrology standpoint. If she stays in [place] area, she will need to follow-up with nephrology as an outpatient. Otherwise, she can follow-up with her primary care when she goes to [place]. Nephrology service is going to sign off at this moment.
== END 2020-08-20 07:50 | disposition home or self-care (01) | DRG 948 ==
LOC: M PM&R 15:30
PROVIDERS: ADMIT Physical Medicine & Rehabilitation; ATTEND Physical Medicine & Rehabilitation
DX: R53.1 Weakness (principal); I50.32 Chronic diastolic (congestive) heart failure; I13.0 Hypertensive heart and chronic kidney disease with heart failure and stage 1 through stage 4 chronic kidney disease, or unspecified chronic kidney disease; I48.20 Chronic atrial fibrillation, unspecified; N17.9 Acute kidney failure, unspecified; E78.5 Hyperlipidemia, unspecified; I25.119 Atherosclerotic heart disease of native coronary artery with unspecified angina pectoris; E11.22 Type 2 diabetes mellitus with diabetic chronic kidney disease; D50.9 Iron deficiency anemia, unspecified; F03.90 Unspecified dementia, unspecified severity, without behavioral disturbance, psychotic disturbance, mood disturbance, and anxiety; F41.9 Anxiety disorder, unspecified; E83.42 Hypomagnesemia; F32.9 Major depressive disorder, single episode, unspecified; E87.6 Hypokalemia; I35.0 Nonrheumatic aortic (valve) stenosis; N18.30 Chronic kidney disease, stage 3 unspecified; E73.9 Lactose intolerance, unspecified; Z74.09 Other reduced mobility; Z74.1 Need for assistance with personal care; Z90.49 Acquired absence of other specified parts of digestive tract; Z79.01 Long term (current) use of anticoagulants; Z79.84 Long term (current) use of oral hypoglycemic drugs; Z79.899 Other long term (current) drug therapy; Z88.0 Allergy status to penicillin; Z88.2 Allergy status to sulfonamides; E88.09 Other disorders of plasma-protein metabolism, not elsewhere classified